=== PATIENT | female | born 1970 ===

== ENCOUNTER 2018-10-21 22:52 | Inpatient (IN) | payer MEDICARE, OTHER ==
[2018-10-21 22:54] VITALS: BMI 32.5
--- NOTE | 2018-10-21 23:15 | ED PDOC ---
Arrival/HPI - Critical Care Critical Care Minutes: 45 minutes - History of Present Illness Narrative History of Present Illness (Text): 10/21/18 23:14 48 year old female with a past medical history of fibromyalgia, epilepsy, and cva (2006) presents to the hospital after having questionable seizure activity while at home. Per daughter she was speaking with mom when she started reporting jaw tightening. Patient brought in by EMS and reports mid-sternal chest pain with no radiation. She rates it a 9/10 in severity. Limited ROS due to patients current condition. PMH: Fibromyalgia, cva, epilepsy Medications: Gabapentin 1200mg PO TID Surgical history: total hysterectomy Allergies: Tramadol, Morphin, Dilantin Symptom Onset: Sudden Symptom Course: Unchanged Quality: Tightness Severity Level: 9 Context: Sitting <Salinas Schmidt - Last Filed: 10/22/18 06:23> Past Medical History - Provider Review Nursing Documentation Reviewed: Yes - Cardiac Hx Cardiac Disorders: No - Pulmonary Hx Respiratory Disorders: No - Neurological Hx Neurological Disorder: Yes HX Cerebrovascular Accident: Yes (2005) Hx Seizures: Yes - Musculoskeletal/Rheumatological Other/Comment: Neuropathy - Gastrointestinal Hx Gastrointestinal Disorders: No - Genitourinary/Gynecological Hx Genitourinary Disorders: No - Psychiatric Hx Psychophysiologic Disorder: No Hx Substance Use: No <Salinas Schmidt - Last Filed: 10/22/18 06:23> Family/Social History - Physician Review Nursing Documentation Reviewed: Yes Family/Social History: No Known Family HX Smoking Status: Never Smoked Hx Alcohol Use: No Hx Substance Use: No <Salinas Schmidt - Last Filed: 10/22/18 06:23> Allergies/Home Meds <Salinas Schmidt - Last Filed: 10/22/18 06:23> <Katty Dugan - Last Filed: 10/23/18 06:52> Allergies/Adverse Reactions: Allergies iodine Allergy (Verified 10/21/18 22:54) ANAPHYLAXIS morphine Allergy (Verified 10/21/18 22:54) NAUSEA tramadol Allergy (Verified 10/21/18 22:54) ITCHING Home Medications: Home Meds Medication Instructions Recorded Confirmed DULoxetine [Cymbalta] 60 mg PO DAILY 10/22/18 10/22/18 Gabapentin [Neurontin] 1,200 mg PO TID 10/22/18 10/22/18 Levalbuterol HCl [Xopenex] 0.63 mg IH Q6H PRN 10/22/18 10/22/18 Montelukast [Singulair] 10 mg PO HS 10/22/18 10/22/18 Omeprazole 20 mg PO DAILY 10/22/18 10/22/18 Topiramate [Topamax] 100 mg PO DAILY 10/22/18 10/22/18 Review of Systems - Review of Systems Systems not reviewed;Unavailable: Acuity of Condition Cardiovascular: Chest Pain. absent: Palpitations, Syncope, Other <Salinas Schmidt - Last Filed: 10/22/18 06:23> Physical Exam Vital Signs Reviewed: Yes Temperature: Afebrile Blood Pressure: Normal Pulse: Regular Respiratory Rate: Normal Appearance: Positive for: Well-Appearing, Non-Toxic Pain Distress: None Mental Status: Positive for: Alert and Oriented X 3 Finger Stick Blood Glucose: 98 - Systems Exam Head: Present: Atraumatic, Normocephalic. No: Abrasion Pupils: Present: PERRL. No: Sluggish Extroacular Muscles: Present: EOMI. No: Gaze Palsy Conjunctiva: Present: Normal. No: Injected Mouth: Present: Moist Mucous Membranes. No: Dry, Normal Teeth Respiratory/Chest: Present: Clear to Auscultation, Good Air Exchange Cardiovascular: Present: Murmurs, Normal S1, S2 Abdomen: Present: Tenderness, Normal Bowel Sounds <Salinas Schmidt - Last Filed: 10/22/18 06:23> Vital Signs Temp Pulse Resp BP Pulse Ox 10/22/18 01:26 81 18 129/63 95 10/21/18 23:15 97.3 F L 84 18 144/85 100 <Katty Dugan - Last Filed: 10/23/18 06:52> Medical Decision Making ED Course and Treatment: 10/21/18 23:22 48 year old female with a past medical history of epilepsy, fibromyalgia, cva presents with chest pain and questionable seizure. -EKG -Troponin -Head ct w/o contrast -Chest xray -CBC/CMP -D-dimer -Magnesium -Xanax 10/22/18 00:27 D-dimer 678 -CTA ordered. 10/22/18 00:[address] Lazo and he accepts the patient to observation. Physician Office Specialist made aware. - RAD Interpretation Radiology Orders: 10/21/18 23:12 HEAD W/O (CODE STROKE) [CT] Stat <RoxanaSalinas - Last Filed: 10/22/18 06:23> - Lab Interpretations Lab Results: D-Dimer, Quantitative 678 ng/mlDDU (0-243) H 10/21/18 23:00 Troponin I < 0.01 ng/mL 10/22/18 12:15 Total Bilirubin 0.3 mg/dL (0.2-1.3) 10/21/18 23:58 AST 60 U/L (14-36) H 10/21/18 23:58 ALT 58 U/L (7-56) H 10/21/18 23:58 Alkaline Phosphatase 105 U/L (38-126) 10/21/18 23:58 Total Protein 7.6 g/dL (5.8-8.3) 10/21/18 23:58 Albumin 4.5 g/dL (3.0-4.8) 10/21/18 23:58 Globulin 3.1 gm/dL 10/21/18 23:58 Albumin/Globulin Ratio 1.4 (1.1-1.8) 10/21/18 23:58 Urine Color Yellow (YELLOW) 10/22/18 14:30 Urine Appearance Clear (CLEAR) 10/22/18 14:30 Urine pH 7.0 (4.7-8.0) 10/22/18 14:30 Ur Specific [place] 1.015 (1.005-1.035) 10/22/18 14:30 Urine Protein Negative mg/dL (<30 mg/dL) 10/22/18 14:30 Urine Glucose (UA) Negative mg/dL (NEGATIVE) 10/22/18 14:30 Urine Ketones Negative mg/dL (NEGATIVE) 10/22/18 14:30 Urine Blood Negative (NEGATIVE) 10/22/18 14:30 Urine Nitrate Negative (NEGATIVE) 10/22/18 14:30 Urine Bilirubin Negative (NEGATIVE) 10/22/18 14:30 Urine Urobilinogen 0.2 E.U./dL (<1 E.U./dL) 10/22/18 14:30 Ur Leukocyte Esterase Small Deepak/uL (NEGATIVE) H 10/22/18 14:30 Urine RBC 0 - 2 /hpf (0-2) 10/22/18 14:30 Urine WBC 5 - 10 /hpf (0-6) H 10/22/18 14:30 Ur Epithelial Cells 3 - 4 /hpf (0-5) 10/22/18 14:30 Urine Bacteria Many /hpf (NONE) 10/22/18 14:30 - RAD Interpretation Radiology Orders: 10/21/18 23:12 HEAD W/O CONTRAST [CT] Stat 10/21/18 23:20 CHEST PORTABLE [RAD] Stat - Medication Orders Current Medication Orders: Aspirin (Ecotrin) 81 mg PO DAILY [facility] Last Admin: 10/22/18 10:00 Dose: 81 mg Duloxetine HCl (Cymbalta) 60 mg PO DAILY [facility] Last Admin: 10/22/18 10:00 Dose: 60 mg Enoxaparin Sodium (Lovenox) 40 mg SC DAILY [facility]; Protocol Last Admin: 10/22/18 12:44 Dose: 40 mg MAR aPTT Document 10/22/18 12:44 ALEXANDREA (Rec: 10/22/18 12:47 ALEXANDREA [id number]) aPTT aPTT (secs) 1 Subcutaneous Administrations Document 10/22/18 12:44 ALEXANDREA (Rec: 10/22/18 12:47 A[facility]REA [facility] [place] [id number]) Injection Site MAR Injection Site Left Arm Charges for Administration # of Subcutaneous Administrations 1 Gabapentin (Neurontin) 1,200 mg PO TID [facility]; Protocol Last Admin: 10/22/18 18:23 Dose: 1,200 mg Behavioural Document 10/22/18 18:23 ALEXANDREA (Rec: 10/22/18 18:23 ALEXANDREA [facility] [id number]) Maintenance Maintenance Dose Yes Nonmedicinal Nonmedicinal Interventions Therapeutic Communication Behavior Behavior for Medication: Anxiety Ibuprofen (Motrin Tab) 600 mg PO Q6H PRN PRN Reason: Pain, moderate (4-7) Last Admin: 10/22/18 14:11 Dose: 600 mg MAR Pain/Vitals Document 10/22/18 14:11 ALEXANDREA (Rec: 10/22/18 14:12 ALEXANDREA [facility] [id number]) Pain Reassessment Is This A Pain ReAssessment? Yes Sleep Is patient sleeping during reassessment? No Presence of Pain Presence of Pain Yes Pain Scale Used Protocol: [facility] Pain Scale Used Numeric Location Left, Right or Bilateral Left Pain Location Body Site Arm Description Constant Intensity 8 Pain Behavior Guarding Alleviating Factors Medication Re-Assess: MAR Pain/Vitals Document 10/22/18 15:11 ALEXANDREA (Rec: 10/22/18 18:24 ALEXANDREA [facility] [id number]) Pain Reassessment Is This A Pain ReAssessment? Yes Sleep Is patient sleeping during reassessment? No Presence of Pain Presence of Pain Yes Pain Scale Used Protocol: [facility] Pain Scale Used Numeric Location Left, Right or Bilateral Left Pain Location Body Site Chest Description Constant Intensity 3 Scale Used Numeric Alleviating Factors Medication Levalbuterol HCl (Xopenex) 0.63 mg IH [id number] PRN PRN Reason: Shortness of Breath Last Admin: 10/22/18 10:12 Dose: 0.63 mg Lorazepam (Ativan) 2 mg IVP Q2H PRN; Protocol PRN Reason: Seizure activity Montelukast Sodium (Singulair) 10 mg PO HS [facility] Last Admin: 10/22/18 21:56 Dose: 10 mg Pantoprazole Sodium (Protonix Ec Tab) 40 mg PO 0600 CE Last Admin: 10/22/18 05:55 Dose: 40 mg Topiramate (Topamax) 150 mg PO DAILY [facility]; Protocol Discontinued Medications Docusate Sodium (Colace) 100 mg PO ONCE ONE Stop: 10/22/18 22:01 Last Admin: 10/22/18 21:56 Dose: 100 mg Last Bowel Movement Document 10/22/18 21:56 CDE (Rec: 10/22/18 21:56 CDE [email or web address]) Last Bowel Movement Last Bowel Movement 10/20/18 Lorazepam (Ativan) 1 mg IVP ONCE ONE; Protocol Stop: 10/21/18 23:47 Last Admin: 10/21/18 23:55 Dose: 1 mg IVP Administration Document 10/21/18 23:55 AD (Rec: 10/22/18 00:24 AD [facility] [id number]) Charges for Administration # of IVP Administrations 1 Re-Assess: Reassess Psych Meds Document 10/22/18 00:25 ALEXANDREA (Rec: 10/22/18 12:49 ALEXANDREA [id number]) Reassess Psych Med Effective Topiramate (Topamax) 100 mg PO DAILY [facility]; Protocol Last Admin: 10/22/18 12:48 Dose: 100 mg Behavioural Document 10/22/18 12:48 ALEXANDREA (Rec: 10/22/18 12:48 [id number]) Maintenance Maintenance Dose Yes Nonmedicinal Nonmedicinal Interventions Redirect Behavior Behavior for Medication: Anxiety Re-Assess: Reassess Psych Meds Document 10/22/18 13:48 ALEXANDREA (Rec: 10/22/18 14:09 ALEXANDREA [facility] [id number]) Reassess Psych Med Effective <Katty Dugan - Last Filed: 10/23/18 06:52> Disposition/Present on Arrival - Present on Arrival Any Indicators Present on Arrival: No History of DVT/PE: No History of Uncontrolled Diabetes: No Urinary Catheter: No History of Decub. Ulcer: No History Surgical Site Infection Following: None - Disposition Have Diagnosis and Disposition been Completed?: Yes Disposition Time: 12:55 Patient Plan: Admission <Salinas Schmidt - Last Filed: 10/22/18 06:23> <Katty Dugan - Last Filed: 10/23/18 06:52> - Disposition Diagnosis: Elevated d-dimer Disposition: HOSPITALIZED Condition: GUARDED
[2018-10-21 23:26] LABS: HEMOGLOBIN 11.5 g/dL (12.0-16.0); MEAN CELL VOLUME 84.4 fl (80.0-105.0); MEAN CORPUSCULAR HEMOGLOBIN 26.4 pg (25.0-35.0); MEAN CORPUSCULAR HGB CONC 31.3 g/dl (31.0-37.0); MEAN PLATELET VOLUME 11.7 fl (7.0-11.0); RBC 4.36 10^6/uL (3.5-6.1); RED CELL DISTRIBUTION WIDTH 23.8 % (11.5-14.5); WHITE BLOOD COUNT 4.9 10^3/uL (4.5-11.0)
[2018-10-22 00:17] LABS: ALB/GLOB RATIO 1.4 (1.1-1.8); ALBUMIN 4.5 g/dL (3.0-4.8); ALT/SGPT 58 U/L (7-56); AST/SGOT 60 U/L (14-36); BLOOD UREA NITROGEN 17 mg/dL (7-21); CALCIUM 9.3 mg/dL (8.4-10.5); GFR NON-AFRICAN AMERICAN > 60
[2018-10-22 00:28] LABS: TROPONIN I < 0.01 ng/mL
--- NOTE | 2018-10-22 01:19 | CP.PCM.HP ---
<Peyman Taylor L - Last Filed: 10/22/18 03:45> History of Present Illness - History of Present Illness History of Present Illness: Resident History & Physical for Hospitalist Service Patient is a 48 year old female with past medical history of CVA with residual left sided weakness, epilepsy, obesity, anemia, fibromyalgia, neuropathy, seasonal disorder presenting s/p seizure episode witnessed by family. History was mostly obtained from prior records and daughter at bedside due to patient's lethargic status. Earlier in the evening patient was noted to have a fifteen minute episode of clonic movements with jaw clenching and drooling. Patient's last seizure was several years ago. Currently patient does follow commands and answers questions appropriately. Admits to constant chest discomfort localized to mid anterior chest wall, not associated with exertion, dyspnea or diaphoresis. Patient is s/p total hysterectomy a month prior and admits to abdominal pain. Denies fevers, chills, shortness of breath, nausea, vomiting, diarrhea, dysuria. PMH: CVA (2005), epilepsy, obesity, anemia, fibromyalgia, neuropathy, fibroids, endometriosis, seasonal disorder PSH: gastric bypass, hernia, cholecystectomy, , total hysterectomy, nerve block for lumbago SHx: denies alcohol, tobacco, illicit drug use FHx: mother (lupus), father (bone cancer) Allergies: iodine, morphine, tramadol, metaclopramide, phenytoin, zolpidem PMD: Dr. Hearn Pharmacy: [facility] Present on Admission - Present on Admission Any Indicators Present on Admission: No Review of Systems - Review of Systems All systems: reviewed and no additional remarkable complaints except (as stated in HPI) Past Patient History - Past Social History Smoking Status: Never Smoked - CARDIAC Hx Cardiac Disorders: No - PULMONARY Hx Respiratory Disorders: No - NEUROLOGICAL Hx Neurological Disorder: Yes HX Cerebrovascular Accident: Yes (2005) Hx Seizures: Yes - MUSCULOSKELETAL/RHEUMATOLOGICAL Other/Comment: Neuropathy - GASTROINTESTINAL Hx Gastrointestinal Disorders: No - GENITOURINARY/GYNECOLOGICAL Hx Genitourinary Disorders: No - PSYCHIATRIC Hx Psychophysiologic Disorder: No Hx Substance Use: No - SURGICAL HISTORY Hx Surgeries: Yes Meds Allergies/Adverse Reactions: Allergies Allergy/AdvReac Type Severity Reaction Status Date / Time iodine Allergy ANAPHYLAXIS Verified 10/21/18 22:54 morphine Allergy NAUSEA Verified 10/21/18 22:54 tramadol Allergy ITCHING Verified 10/21/18 22:54 Physical Exam - Constitutional Appears: Non-toxic, No Acute Distress - Head Exam Head Exam: ATRAUMATIC, NORMOCEPHALIC - Eye Exam Eye Exam: EOMI, Normal appearance, PERRL - ENT Exam ENT Exam: Mucous Membranes Moist, Normal Exam - Neck Exam Neck exam: Negative for: Lymphadenopathy - Respiratory Exam Respiratory Exam: Chest Wall Tenderness, Clear to Auscultation Bilateral, NORMAL BREATHING PATTERN. absent: Accessory Muscle Use, Rales, Rhonchi, Wheezes, Respiratory Distress - Cardiovascular Exam Cardiovascular Exam: REGULAR RHYTHM, +S1, +S2. absent: Tachycardia, Systolic Murmur - GI/Abdominal Exam GI & Abdominal Exam: Normal Bowel Sounds, Soft, Tenderness (diffuse). absent: Distended, Firm, Guarding Additional comments: midline postsurgical scar - Extremities Exam Extremities exam: Positive for: normal capillary refill, pedal pulses present. Negative for: pedal edema - Neurological Exam Neurological exam: CN II-XII Intact, Oriented x3 Additional comments: lethargic LUE and LLE weakness - Skin Skin Exam: Dry, Intact, Normal Color, Warm Results - Vital Signs Recent Vital Signs: Last Vital Signs Temp 97.3 F L 10/21/18 23:15 Pulse 84 10/21/18 23:15 Resp 18 10/21/18 23:15 BP 144/85 10/21/18 23:15 Pulse Ox 100 10/21/18 23:15 - Labs Result Diagrams: 10/21/18 23:00 10/21/18 23:58 Labs: Laboratory Results - last 24 hr 10/21/18 10/21/18 10/21/18 23:00 23:00 23:58 WBC 4.9 RBC 4.36 Hgb 11.5 L Hct 36.8 MCV 84.4 MCH 26.4 MCHC 31.3 RDW 23.8 H Plt Count 289 MPV 11.7 H D-Dimer, Quantitative 678 H Sodium 141 Potassium 3.6 Chloride 102 Carbon Dioxide 27 Anion Gap 16 BUN 17 Creatinine 0.7 Est GFR ( Amer) > 60 Est GFR (Non-Af Amer) > 60 Random Glucose 86 Calcium 9.3 Magnesium 2.2 Total Bilirubin 0.3 AST 60 H ALT 58 H Alkaline Phosphatase 105 Troponin I < 0.01 Total Protein 7.6 Albumin 4.5 Globulin 3.1 Albumin/Globulin Ratio 1.4 Assessment & Plan - Assessment and Plan (Free Text) Assessment: Patient is a 48 year old female with past medical history of CVA with residual left sided weakness, epilepsy, fibromyalgia presenting s/p seizure episode, also complaining of chest pain. Plan: Seizure - CT head prelim read shows possible tiny petechial hemorrhage in left basal ganglia vs. artifact - Ativan PRN - EEG - Seizure/aspiration precautions - home Topamax 100 mg PO daily, Gabapentin 1200 mg PO TID - Neurology consulted Atypical chest pain - Troponin negx1 - CHIP score 0 - ECHO from 09/2018 shows EF 60-65% - Stress test from 09/2018 was normal - Troponins Q6H - EKG in AM - Hgba1c, TSH, lipid panel - ASA 81 mg PO daily - Oxygen NC - Cardiology consulted Elevated d-dimer - V/Q scan as patient is allergic to iodine PPX - Pepcid, Lovenox SC Case reviewed with Dr. Clifton Taylor PGY-1 <Suri Lazo - Last Filed: 10/22/18 05:13> Results - Vital Signs Recent Vital Signs: Last Vital Signs Temp 97.3 F L 10/21/18 23:15 Pulse 75 10/22/18 02:52 Resp 18 10/22/18 02:52 BP 119/74 10/22/18 02:05 Pulse Ox 100 10/22/18 02:05 - Labs Result Diagrams: 10/21/18 23:00 10/21/18 23:58 Labs: Laboratory Results - last 24 hr 10/21/18 10/21/18 10/21/18 23:00 23:00 23:58 WBC 4.9 RBC 4.36 Hgb 11.5 L Hct 36.8 MCV 84.4 MCH 26.4 MCHC 31.3 RDW 23.8 H Plt Count 289 MPV 11.7 H D-Dimer, Quantitative 678 H Sodium 141 Potassium 3.6 Chloride 102 Carbon Dioxide 27 Anion Gap 16 BUN 17 Creatinine 0.7 Est GFR ( Amer) > 60 Est GFR (Non-Af Amer) > 60 Random Glucose 86 Calcium 9.3 Magnesium 2.2 Total Bilirubin 0.3 AST 60 H ALT 58 H Alkaline Phosphatase 105 Troponin I < 0.01 Total Protein 7.6 Albumin 4.5 Globulin 3.1 Albumin/Globulin Ratio 1.4 Attending/Attestation - Attestation I have personally seen and examined this patient.: Yes I have fully participated in the care of the patient.: Yes I have reviewed all pertinent clinical information: Yes Notes (Text): 10/22/18 05:12 Patient was seen when she was in the ER. Medical record was reviewed. Agree with history , physical examination, assessment and plan.
[2018-10-22] MEDS ORDERED: Levalbuterol 0.63 MG/3 ML Inhal Soln UD IH PRN (03:42)
[2018-10-22] MEDS: Pantoprazole 40 mg EC Tab PO SCH (05:55)
[2018-10-22 06:59] LABS: HDL CHOLESTEROL 50 mg/dL (29-60)
[2018-10-22 07:10] LABS: LDL CHOLESTEROL 71 mg/dL (0-129); TROPONIN I < 0.01 ng/mL
--- NOTE | 2018-10-22 07:46 | CT ---
Date of service: 10/21/2018 PROCEDURE: CT HEAD WITHOUT CONTRAST. HISTORY: ? seizure COMPARISON: None available. TECHNIQUE: Axial computed tomography images were obtained through the head/brain without intravenous contrast. Radiation dose: Total exam DLP = 837.25 mGy-cm. This CT exam was performed using one or more of the following dose reduction techniques: Automated exposure control, adjustment of the mA and/or kV according to patient size, and/or use of iterative reconstruction technique. FINDINGS: HEMORRHAGE: There is 2 adjacent punctate foci of high attenuation at the left basal ganglia seen at image 12 and 13 likely represent dystrophic calcification. The possibility of punctate hemorrhage is less likely but not totally excluded. BRAIN: No mass effect or edema. No atrophy or chronic microvascular ischemic changes. VENTRICLES: Unremarkable. No hydrocephalus. CALVARIUM: Unremarkable. PARANASAL SINUSES: Unremarkable as visualized. No significant inflammatory changes. MASTOID AIR CELLS: Unremarkable as visualized. No inflammatory changes. OTHER FINDINGS: There is enlargement of the sella turcica noted with possible partial empty sella. IMPRESSION: Two adjacent punctate foci of high attenuation at the left basal ganglia likely represent dystrophic calcification. The possibility of punctate hemorrhage is less likely. Follow-up reassessment is suggested to document stability. Mild diffuse enlargement of the sella turcica with findings suggestive of possible partial empty sella. Preliminary report contains concordant findings was submitted by [facility] Radiology.
--- NOTE | 2018-10-22 08:58 | RAD ---
Date of service: 10/21/2018 HISTORY: chest tightness COMPARISON: None available. TECHNIQUE: Chest one view . FINDINGS: LUNGS: No focal consolidation is seen. PLEURA: No pleural effusion is identified. CARDIOVASCULAR: Heart size is within normal limits. Atherosclerotic calcifications noted of the aorta. OSSEOUS STRUCTURES: Degenerative changes noted of the spine. VISUALIZED UPPER ABDOMEN: Unremarkable. OTHER FINDINGS: None. IMPRESSION: No acute cardiopulmonary process seen.
--- NOTE | 2018-10-22 11:49 | CP.PCM.CON ---
<Karan Mnacia - Last Filed: 10/22/18 18:28> History of Present Illness - History of Present Illness History of Present Illness: Karan Mancia PGY2 Neurology Consult Note for Dr. Ferris 48 year old female with past medical history of CVA with residual left sided weakness, seizures, epilepsy, obesity, anemia, fibromyalgia, neuropathy, seasonal disorder presenting s/p seizure like episode witnessed brother on the phone. Neurology is consulted by Medicine for possible seizures. Patient states she recalled what happened and did not have any LOC, urinary or bladder incontinence. She said she felt as if she froze and her head and face were twitching and jaw was clenched. She states her last seizure was in 2013 and she has been taking gabapentin 1200 TID for seizure control and has not seen a neuro logist for a long time. Currently patient does follow commands and answers questions appropriately. Denies fevers, chills, shortness of breath, nausea, vomiting, diarrhea, dysuria, headaches, numbness or tingling. PMH: CVA (2005), epilepsy, obesity, anemia, fibromyalgia, neuropathy, fibroids, endometriosis, seasonal disorder PSH: gastric bypass, hernia, cholecystectomy, , total hysterectomy, nerve block for lumbago SHx: denies alcohol, tobacco, illicit drug use FHx: mother (lupus), father (bone cancer) Allergies: iodine, morphine, tramadol, metaclopramide, phenytoin, zolpidem PMD: Dr. Hearn Review of Systems - Respiratory Respiratory: Dyspnea - Musculoskeletal Musculoskeletal: absent: Numbness, Radiating Pain into Limb, Stiffness, Tingling - Neurological Neurological: Numbness, Paresthesias. absent: Abnormal Gait, Abnormal Hearing, Abnormal Movements, Burning Sensations, Confusion, Disequilibrium, Dizziness, Focal Weakness, Headaches, Lack of Coordination, Syncope, Tingling Past Patient History - Past Social History Smoking Status: Never Smoked - CARDIAC Hx Cardiac Disorders: No - PULMONARY Hx Respiratory Disorders: No - NEUROLOGICAL Hx Neurological Disorder: Yes HX Cerebrovascular Accident: Yes (2005) Hx Seizures: Yes - HEMATOLOGICAL/ONCOLOGICAL Hx Anemia: Yes - MUSCULOSKELETAL/RHEUMATOLOGICAL Other/Comment: Neuropathy - GASTROINTESTINAL Hx Gastrointestinal Disorders: No - GENITOURINARY/GYNECOLOGICAL Hx Genitourinary Disorders: No - PSYCHIATRIC Hx Psychophysiologic Disorder: No Hx Substance Use: No - SURGICAL HISTORY Hx Surgeries: Yes Meds Allergies/Adverse Reactions: Allergies Allergy/AdvReac Type Severity Reaction Status Date / Time iodine Allergy ANAPHYLAXIS Verified 10/21/18 22:54 morphine Allergy NAUSEA Verified 10/21/18 22:54 tramadol Allergy ITCHING Verified 10/21/18 22:54 - Medications Medications: Current Medications Aspirin (Ecotrin) 81 mg PO DAILY [facility] Duloxetine HCl (Cymbalta) 60 mg PO DAILY [facility] Enoxaparin Sodium (Lovenox) 40 mg SC DAILY [facility]; Protocol Gabapentin (Neurontin) 1,200 mg PO TID [facility]; Protocol Ibuprofen (Motrin Tab) 600 mg PO Q6H PRN PRN Reason: Pain, moderate (4-7) Levalbuterol HCl (Xopenex) 0.63 mg IH [id number] PRN PRN Reason: Shortness of Breath Last Admin: 10/22/18 10:12 Dose: 0.63 mg Lorazepam (Ativan) 2 mg IVP Q2H PRN; Protocol PRN Reason: Seizure activity Montelukast Sodium (Singulair) 10 mg PO HS [facility] Pantoprazole Sodium (Protonix Ec Tab) 40 mg PO 0600 [facility] Last Admin: 10/22/18 05:55 Dose: 40 mg Topiramate (Topamax) 100 mg PO DAILY [facility]; Protocol Physical Exam - Constitutional Appears: Non-toxic, No Acute Distress - Head Exam Head Exam: ATRAUMATIC, NORMAL INSPECTION, NORMOCEPHALIC - Eye Exam Eye Exam: EOMI, Normal appearance, PERRL Pupil Exam: NORMAL ACCOMODATION - ENT Exam ENT Exam: Mucous Membranes Moist - Respiratory Exam Respiratory Exam: Clear to Auscultation Bilateral, NORMAL BREATHING PATTERN - Cardiovascular Exam Cardiovascular Exam: REGULAR RHYTHM, +S1, +S2 - Extremities Exam Extremities exam: Positive for: pedal pulses present - Neurological Exam Neurological exam: Alert, Oriented x3, Reflexes Normal Additional comments: left sided residual weakness from prior stroke Results - Vital Signs Recent Vital Signs: Last Vital Signs Temp 97 F L 10/22/18 06:00 Pulse 82 10/22/18 10:13 Resp 18 10/22/18 06:00 BP 99/63 L 10/22/18 06:00 Pulse Ox 97 10/22/18 06:00 - Labs Result Diagrams: 10/21/18 23:00 10/21/18 23:58 Labs: Laboratory Results - last 24 hr 10/21/18 10/21/18 10/21/18 23:00 23:00 23:58 WBC 4.9 RBC 4.36 Hgb 11.5 L Hct 36.8 MCV 84.4 MCH 26.4 MCHC 31.3 RDW 23.8 H Plt Count 289 MPV 11.7 H D-Dimer, Quantitative 678 H Sodium 141 Potassium 3.6 Chloride 102 Carbon Dioxide 27 Anion Gap 16 BUN 17 Creatinine 0.7 Est GFR ( Amer) > 60 Est GFR (Non-Af Amer) > 60 Random Glucose 86 Calcium 9.3 Magnesium 2.2 Total Bilirubin 0.3 AST 60 H ALT 58 H Alkaline Phosphatase 105 Lactate Dehydrogenase Total Creatine Kinase Troponin I < 0.01 Total Protein 7.6 Albumin 4.5 Globulin 3.1 Albumin/Globulin Ratio 1.4 Triglycerides Cholesterol LDL Cholesterol Direct HDL Cholesterol TSH 3rd Generation 10/22/18 10/22/18 10/22/18 06:00 06:00 06:30 WBC RBC Hgb Hct MCV MCH MCHC RDW Plt Count MPV D-Dimer, Quantitative Sodium Potassium Chloride Carbon Dioxide Anion Gap BUN Creatinine Est GFR ( Amer) Est GFR (Non-Af Amer) Random Glucose Calcium Magnesium Total Bilirubin AST ALT Alkaline Phosphatase Lactate Dehydrogenase 503 Total Creatine Kinase 94 Troponin I < 0.01 Total Protein Albumin Globulin Albumin/Globulin Ratio Triglycerides 61 Cholesterol 142 LDL Cholesterol Direct 71 HDL Cholesterol 50 TSH 3rd Generation 3.09 Assessment & Plan - Assessment and Plan (Free Text) Assessment: Patient is a 48 year old female with past medical history of CVA with residual left sided weakness, epilepsy, fibromyalgia presenting s/p seizure episode. Plan: Seizure - CT head shows possible 2.0mm petechial hemorrhage in left basal ganglia vs. artifact - Ativan PRN - EEG - Seizure/aspiration precautions - Topamax 150mg - continue neurontin 1200 TID - Neurology consulted - possible MRI <Diego Ferris - Last Filed: 10/29/18 12:13> Meds - Medications Medications: Current Medications Aspirin (Ecotrin) 81 mg PO DAILY [facility] Last Admin: 10/28/18 09:41 Dose: 81 mg Duloxetine HCl (Cymbalta) 60 mg PO DAILY [facility] Last Admin: 10/28/18 09:37 Dose: 60 mg Enoxaparin Sodium (Lovenox) 40 mg SC DAILY [facility]; Protocol Last Admin: 10/28/18 09:36 Dose: 40 mg Famotidine (Pepcid) 20 mg PO DAILY [facility] Gabapentin (Neurontin) 1,200 mg PO TID [facility]; Protocol Last Admin: 10/28/18 17:27 Dose: 1,200 mg Sodium Chloride (Sodium Chloride 0.9%) 1,000 mls @ 100 mls/hr IV .Q10H [facility] Last Admin: 10/29/18 09:37 Dose: 100 mls/hr Ibuprofen (Motrin Tab) 600 mg PO Q6H PRN PRN Reason: Pain, moderate (4-7) Last Admin: 10/28/18 17:29 Dose: 600 mg Levalbuterol HCl (Xopenex) 0.63 mg IH [id number] PRN PRN Reason: Shortness of Breath Last Admin: 10/22/18 10:12 Dose: 0.63 mg Lidocaine (Lidoderm) 1 ea TD DAILY [facility] Last Admin: 10/28/18 15:15 Dose: 1 ea Lorazepam (Ativan) 2 mg IVP Q4H PRN; Protocol PRN Reason: Anxiety Last Admin: 10/26/18 15:20 Dose: 2 mg Montelukast Sodium (Singulair) 10 mg PO HS [facility] Last Admin: 10/27/18 21:16 Dose: 10 mg Ondansetron HCl (Zofran Inj) 4 mg IVP Q6H PRN PRN Reason: Nausea/Vomiting Last Admin: 10/27/18 15:28 Dose: 4 mg Pantoprazole Sodium (Protonix Ec Tab) 40 mg PO 0600 [facility] Last Admin: 10/28/18 05:16 Dose: 40 mg Polyethylene Glycol (Miralax) 17 gm PO BID [facility] Last Admin: 10/28/18 17:28 Dose: 17 gm Sennosides (Senokot Tab) 8.6 mg PO DAILY [facility] Last Admin: 10/28/18 09:37 Dose: 8.6 mg Topiramate (Topamax) 150 mg PO DAILY [facility]; Protocol Last Admin: 10/26/18 10:17 Dose: 150 mg Results - Vital Signs Recent Vital Signs: Last Vital Signs Temp 98 F 10/29/18 06:00 Pulse 81 10/29/18 06:00 Resp 18 10/29/18 06:00 BP 91/62 L 10/29/18 06:00 Pulse Ox 97 10/29/18 06:00 - Labs Result Diagrams: 10/29/18 07:00 10/29/18 07:00 Labs: Laboratory Results - last 24 hr 10/28/18 10/28/18 10/29/18 07:00 07:00 07:00 WBC 3.6 L D RBC 4.23 Hgb 11.2 L Hct 35.8 L MCV 84.6 MCH 26.5 MCHC 31.3 RDW 23.0 H Plt Count 235 MPV 11.8 H Neut % (Auto) 51.8 Lymph % (Auto) 33.9 [place] % (Auto) 7.4 H Eos % (Auto) 6.6 H Baso % (Auto) 0.3 Lymph # (Auto) 1.2 [place] # (Auto) 0.3 Eos # (Auto) 0.2 Baso # (Auto) 0.01 Absolute Neuts (auto) 1.88 PT INR APTT Sodium Potassium Chloride Carbon Dioxide Anion Gap BUN Creatinine Est GFR ( Amer) Est GFR (Non-Af Amer) Random Glucose Calcium Total Bilirubin AST ALT Alkaline Phosphatase Total Protein Albumin Globulin Albumin/Globulin Ratio [id number] 181 RPR Nonreactive 10/29/18 10/29/18 07:00 10:35 WBC RBC Hgb Hct MCV MCH MCHC RDW Plt Count MPV Neut % (Auto) Lymph % (Auto) [place] % (Auto) Eos % (Auto) Baso % (Auto) Lymph # (Auto) [place] # (Auto) Eos # (Auto) Baso # (Auto) Absolute Neuts (auto) PT 12.5 INR 1.11 APTT 36.9 Sodium 141 Potassium 4.3 Chloride 105 Carbon Dioxide 27 Anion Gap 13 BUN 21 Creatinine 0.7 Est GFR ( Amer) > 60 Est GFR (Non-Af Amer) > 60 Random Glucose 86 Calcium 9.3 Total Bilirubin 0.3 AST 614 H ALT 680 H Alkaline Phosphatase 133 H Total Protein 7.3 Albumin 4.0 Globulin 3.3 Albumin/Globulin Ratio 1.2 [id number] RPR Attending/Attestation - Attestation I have personally seen and examined this patient.: Yes I have fully participated in the care of the patient.: Yes I have reviewed all pertinent clinical information: Yes Notes (Text): I agree with the assessment and plan: - Ativan PRN - EEG - Seizure/aspiration precautions - Topamax 150mg - continue neurontin 1200 TID
--- NOTE | 2018-10-22 12:17 | NM ---
Date of service: 10/22/2018 COMPARISON: 10/21/2018. Single-view chest TECHNIQUE: 38.6 mCi technetium 99-m DTPA aerosol. 5.4 mCI technetium 99-m MAA administered intravenously. FINDINGS: VENTILATION COMPONENT: Normal.Retention of radionuclide in the tracheobronchial tree and ingestion of radionuclide in the stomach, incidental findings PERFUSION COMPONENT: Normal. IMPRESSION: Normal ventilation perfusion scan. Negative for pulmonary embolism.
[2018-10-22 12:44] LABS: TROPONIN I < 0.01 ng/mL
[2018-10-22] MEDS: Enoxaparin 40 mg Syringe SC SCH (12:44)
--- NOTE | 2018-10-22 13:00 | CP.PCM.PCO ---
Physician Communication Note - Physician Communication Note Physician Communication Note: venous duplex, UA, EEG, PT eval pending
--- NOTE | 2018-10-22 14:35 | CARD ---
APPROVED REPORT Date of service: 10/22/2018 EKG Measurement Heart [id number] ID [id number] <Conclusion> Normal sinus rhythm Normal ECG
[2018-10-22 14:50] LABS: URINE BILIRUBIN NEGATIVE (NEGATIVE); URINE BLOOD NEGATIVE (NEGATIVE); URINE GLUCOSE (UA) NEGATIVE (NEGATIVE); URINE LEUKOCYTE ESTERASE SMALL Leu/uL (NEGATIVE); URINE PROTEIN NEGATIVE mg/dL (<30 mg/dL); URINE UROBILINOGEN 0.2 E.U./dL (<1 E.U./dL)
[2018-10-22 14:54] LABS: URINE APPEARANCE CLEAR (CLEAR); URINE COLOR YELLOW (YELLOW)
[2018-10-22 15:00] LABS: URINE BACTERIA MANY /hpf; URINE RBC 0 - 2 /hpf (0-2)
--- NOTE | 2018-10-22 15:16 | CARD ---
APPROVED REPORT Date of service: 10/21/2018 EKG Measurement Heart [id number] <Conclusion> Normal sinus rhythm Prolonged QT Abnormal ECG
--- NOTE | 2018-10-22 19:34 | US ---
HISTORY: Leg pain and swelling. Evaluate for DVT PHYSICIAN(S): Mina David MD. TECHNIQUE: Duplex sonography and color-flow Doppler with graded compression were used to evaluate the deep venous systems of both lower extremities. FINDINGS: The visualized deep venous systems of both lower extremities are sonographically normal and compressible. Normal wave forms and augmentation are seen. There is no sonographic evidence for deep venous thrombosis in the visualized segments of both lower extremities. IMPRESSION: No sonographic evidence for deep venous thrombosis in the visualized segments of both lower extremities.
[2018-10-23] MEDS: Pantoprazole 40 mg EC Tab PO SCH (07:02)
[2018-10-23 07:24] LABS: BASO # 0.01 K/mm3 (0.0-2.0); BASO % 0.3 % (0.0-3.0); EOS # 0.1 (0.0-0.7); EOS % 2.9 % (1.5-5.0); LYMPH # 1.6 (1.2-3.4); LYMPH % 47.1 % (22.0-35.0); MEAN CELL VOLUME 85.3 fl (80.0-105.0); MEAN CORPUSCULAR HEMOGLOBIN 26.5 pg (25.0-35.0); MEAN CORPUSCULAR HGB CONC 31.1 g/dl (31.0-37.0); MEAN PLATELET VOLUME 11.7 fl (7.0-11.0); MONO # 0.3 (0.1-0.6); MONO % 7.6 % (1.0-6.0); RBC 4.15 10^6/uL (3.5-6.1); RED CELL DISTRIBUTION WIDTH 23.4 % (11.5-14.5); WHITE BLOOD COUNT 3.4 10^3/uL (4.5-11.0)
[2018-10-23 07:43] LABS: ALB/GLOB RATIO 1.3 (1.1-1.8); ALBUMIN 3.9 g/dL (3.0-4.8); ALT/SGPT 71 U/L (7-56); AST/SGOT 83 U/L (14-36); BLOOD UREA NITROGEN 14 mg/dL (7-21); GFR NON-AFRICAN AMERICAN > 60
[2018-10-23] MEDS: Enoxaparin 40 mg Syringe SC SCH (09:12)
[2018-10-23] MEDS: POLYETHYLENE GLYCOL 3350 17 GM/Dose PACKET PO SCH ×2 (09:15→17:52)
--- NOTE | 2018-10-23 12:54 | CON ---
DATE: 10/23/2018 REQUESTING PHYSICIAN: Dr. Chanel REASON FOR CONSULTATION: Chest pain. HISTORY: This is a 48-year-old woman who has been followed by Dr. Jean Carlos Smyth from Cardiology, who presented to the emergency room after having a possible seizure at home. She describes pain in her chest radiating to her shoulder which she has described as a shock-like sensation. She also had left inframammary pressure-like pain as well as jaw tightness which lasted on and off for several hours. She was brought to the emergency room for evaluation. She does have a history of prior cerebrovascular accident in 2006 as well as a seizure disorder. She has not had any recent seizures to the best of her knowledge. She apparently underwent a stress test sometime last year and was told that this was mildly abnormal, but no further workup was advised at that time. Her cerebrovascular accident was reportedly on the basis of hypertensive disease. She has had a prior hysterectomy, and she also reportedly has a history of fibromyalgia. MEDICATIONS AT HOME: Included Cymbalta, Neurontin, Xopenex, Singulair, omeprazole, and Topamax. ALLERGIES: SHE HAS HAD A REACTION TO CONTRAST DYE IN THE PAST WHICH APPEARED CONSISTENT WITH ANAPHYLAXIS. SHE APPARENTLY UNDERWENT A CONTRAST STUDY AT AGE 16 FOR POSSIBLE THROMBOTIC EVENT INVOLVING HER LEFT ARM. THE DETAILS WERE UNCLEAR. SHE HAS ALSO HAD NAUSEA WITH MORPHINE USE IN THE PAST. SOCIAL HISTORY: She does not smoke or drink. She is , lives with family. FAMILY HISTORY: Father of myocardial fraction is his early 40s. Several other family members have premature heart disease. REVIEW OF SYSTEMS: Ten-point review of systems is notable mainly for the problems mentioned above. PHYSICAL EXAMINATION: GENERAL: She is an anxious-appearing middle-aged woman. VITAL SIGNS: Her blood pressure is 96/60 with a pulse of 60 and sinus, respirations are 16. She is afebrile. HEENT: Normocephalic, atraumatic. NECK: Supple. No JVD noted. CHEST: Few scattered rhonchi heard. HEART: PMI in normal position with a soft systolic murmur at the left sternal border. ABDOMEN: Soft, nontender, normoactive bowel sounds. EXTREMITIES: No clubbing, cyanosis, or edema. SKIN: Warm and dry. PSYCHIATRIC: Normal mood and affect. NEUROLOGIC: Alert and oriented x3. No gross motor or sensory deficits notable. DIAGNOSTIC DATA: Potassium 4.4, BUN and creatinine of 14 and 0.7. White count 3.4, hemoglobin and hematocrit of 11 and 35.4 with a platelet count of 272,000. AST and ALT of 83 and 71. Chest x-ray revealed normal cardiac silhouette with clear lung [place]. The electrocardiogram reveals sinus rhythm with nonspecific ST-T abnormalities. CT of the head showed focal basal ganglia lesions consistent with dystrophic calcification. The sella turcica is enlarged suggestive of possible partial empty sella. A V/Q scan was normal, showing low probability for pulmonary embolism. IMPRESSION: Chest and jaw discomfort, somewhat suspicious for angina. Cardiac enzymes have been negative and she has had no recurrent symptoms. As she has a local waiver analyst, I would advise discharge home with followup with Dr. Smyth next week. It may be advisable for her to consider cardiac catheterization with appropriate allergy prophylaxis for contrast media given her risk factors, family history, and current symptomatology. This was discussed at length with the patient. Thank you for this consultation. We will be happy to see in the future if needed. Lee Cuellar MD
--- NOTE | 2018-10-23 14:15 | CARD ---
APPROVED REPORT Date of service: 10/23/2018 EKG Measurement Heart [id number] <Conclusion> Normal sinus rhythm Minimal voltage criteria for LVH, may be normal variant Mild anterior T wave inversions Borderline ECG
--- NOTE | 2018-10-23 14:58 | CP.PCM.PN ---
<Ruben Cedeno - Last Filed: 10/23/18 16:03> Subjective - Date & Time of Evaluation Date of Evaluation: 10/23/18 Time of Evaluation: 15:47 - Subjective Subjective: Ruben Cedeno, PGY1 Medicine Progress Note: Pt was seen and examined at bedside in the AM. Pt states that she is feeling "weird" and she is having head pressure and feels as if her head is in the clouds. She also sees a straight line going across her eyes. She also states that she has L sided weakness, but is noted to be on her phone and is able to use both hands. Pt also noted chest pain after working with Physical therapy. Objective - Vital Signs/Intake and Output Vital Signs (last 24 hours): Temp Pulse Resp BP Pulse Ox 98.2 F 84 18 102/64 100 10/23/18 12:00 10/23/18 14:00 10/23/18 12:00 10/23/18 12:00 10/23/18 06:00 Intake and Output: 10/23/18 10/23/18 06:59 18:59 Intake Total 1736 240 Output Total 0 Balance 1736 240 - Medications Medications: Current Medications Aspirin (Ecotrin) 81 mg PO DAILY [facility] Last Admin: 10/23/18 09:10 Dose: 81 mg Duloxetine HCl (Cymbalta) 60 mg PO DAILY [facility] Last Admin: 10/23/18 09:10 Dose: 60 mg Enoxaparin Sodium (Lovenox) 40 mg SC DAILY [facility]; Protocol Last Admin: 10/23/18 09:12 Dose: 40 mg Gabapentin (Neurontin) 800 mg PO TID [facility]; Protocol Ibuprofen (Motrin Tab) 600 mg PO Q6H PRN PRN Reason: Pain, moderate (4-7) Last Admin: 10/22/18 14:11 Dose: 600 mg Levalbuterol HCl (Xopenex) 0.63 mg IH [id number] PRN PRN Reason: Shortness of Breath Last Admin: 10/22/18 10:12 Dose: 0.63 mg Lorazepam (Ativan) 2 mg IVP Q2H PRN; Protocol PRN Reason: Seizure activity Montelukast Sodium (Singulair) 10 mg PO HS [facility] Last Admin: 10/22/18 21:56 Dose: 10 mg Pantoprazole Sodium (Protonix Ec Tab) 40 mg PO 0600 [facility] Last Admin: 10/23/18 07:02 Dose: 40 mg Polyethylene Glycol (Miralax) 17 gm PO BID [facility] Last Admin: 10/23/18 09:15 Dose: 17 gm Topiramate (Topamax) 150 mg PO DAILY [facility]; Protocol Last Admin: 10/23/18 09:10 Dose: 150 mg - Labs Labs: 10/23/18 06:45 10/23/18 06:45 - Constitutional Appears: Non-toxic, No Acute Distress - Head Exam Head Exam: ATRAUMATIC, NORMOCEPHALIC - Eye Exam Eye Exam: EOMI, Normal appearance, PERRL - ENT Exam ENT Exam: Mucous Membranes Moist, Normal Exam - Neck Exam Neck exam: Negative for: Lymphadenopathy - Respiratory Exam Respiratory Exam: Chest Wall Tenderness, Clear to Auscultation Bilateral, NORMAL BREATHING PATTERN. absent: Accessory Muscle Use, Rales, Rhonchi, Wheezes, Respiratory Distress - Cardiovascular Exam Cardiovascular Exam: REGULAR RHYTHM, +S1, +S2. absent: Tachycardia, Systolic Murmur - GI/Abdominal Exam GI & Abdominal Exam: Normal Bowel Sounds, Soft, Tenderness (diffuse). absent: Distended, Firm, Guarding Additional comments: midline postsurgical scar - Extremities Exam Extremities exam: Positive for: normal capillary refill, pedal pulses present. Negative for: pedal edema - Neurological Exam Neurological exam: CN II-XII Intact, Oriented x3 Additional comments: lethargic LUE and LLE weakness - Skin Skin Exam: Dry, Intact, Normal Color, Warm - Constitutional Appears: Non-toxic, No Acute Distress - Head Exam Head Exam: ATRAUMATIC, NORMAL INSPECTION, NORMOCEPHALIC - Eye Exam Eye Exam: EOMI, Normal appearance, PERRL - Respiratory Exam Respiratory Exam: Clear to Ausculation Bilateral, NORMAL BREATHING PATTERN. a bsent: Accessory Muscle Use, Rales, Rhonchi, Wheezes, Respiratory Distress, Stridor - Cardiovascular Exam Cardiovascular Exam: RRR, +S1, +S2. absent: Gallop, Rubs - GI/Abdominal Exam GI & Abdominal Exam: Soft, Normal Bowel Sounds. absent: Firm, Guarding, Tenderness - Extremities Exam Extremities Exam: Full ROM, Normal Capillary Refill, Normal Inspection - Back Exam Back Exam: NORMAL INSPECTION. absent: CVA tenderness (L), CVA tenderness (R) - Neurological Exam Neurological Exam: Alert, Awake Additional comments: Pt able to maintain shoulder flexion against gravity. - Psychiatric Exam Psychiatric exam: Flat Affect - Skin Skin Exam: Dry, Normal Color, Warm Assessment and Plan - Assessment and Plan (Free Text) Assessment: Patient is a 48 year old female with past medical history of CVA with residual left sided weakness, epilepsy, fibromyalgia presenting s/p seizure episode, also complaining of chest pain. Plan: Seizure - CT head prelim read shows possible tiny petechial hemorrhage in left basal ganglia vs. artifact - Ativan PRN - EEG - awaiting report - Seizure/aspiration precautions - Neurology consulted, rec appreciated - home Topamax 150 mg PO daily, Gabapentin 800 mg PO TID - Pt displaying signs of catatonia after PT work - Repeat CT head to r/o organic neurological etiology vs psych - PT - recommend TCU Atypical chest pain - Troponin negx3 - Troponins Q6H - CHIP score 0 - ECHO from 09/2018 shows EF 60-65% - Stress test from 09/2018 was normal - EKG - NSR HR @ 67 - TSH: 3.09 - ASA 81 mg PO daily - Oxygen NC - Cardiology consulted Constipation: - Pt started on miralax - Will continue to monitor Elevated d-dimer - V/Q scan (-) for PE PPX - Pepcid, Lovenox PA Case reviewed with Dr. Yanique Cedeno PGY-1 <Tia Chanel - Last Filed: 10/23/18 16:16> Objective - Vital Signs/Intake and Output Vital Signs (last 24 hours): Temp Pulse Resp BP Pulse Ox 98.2 F 84 18 102/64 100 10/23/18 12:00 10/23/18 14:00 10/23/18 12:00 10/23/18 12:00 10/23/18 06:00 Intake and Output: 10/23/18 10/23/18 06:59 18:59 Intake Total 1736 240 Output Total 0 Balance 1736 240 - Medications Medications: Current Medications Aspirin (Ecotrin) 81 mg PO DAILY [facility] Last Admin: 10/23/18 09:10 Dose: 81 mg Duloxetine HCl (Cymbalta) 60 mg PO DAILY [facility] Last Admin: 10/23/18 09:10 Dose: 60 mg Enoxaparin Sodium (Lovenox) 40 mg SC DAILY [facility]; Protocol Last Admin: 10/23/18 09:12 Dose: 40 mg Gabapentin (Neurontin) 800 mg PO TID [facility]; Protocol Ibuprofen (Motrin Tab) 600 mg PO Q6H PRN PRN Reason: Pain, moderate (4-7) Last Admin: 10/22/18 14:11 Dose: 600 mg Levalbuterol HCl (Xopenex) 0.63 mg IH [id number] PRN PRN Reason: Shortness of Breath Last Admin: 10/22/18 10:12 Dose: 0.63 mg Lorazepam (Ativan) 2 mg IVP Q2H PRN; Protocol PRN Reason: Seizure activity Montelukast Sodium (Singulair) 10 mg PO HS [facility] Last Admin: 10/22/18 21:56 Dose: 10 mg Pantoprazole Sodium (Protonix Ec Tab) 40 mg PO 0600 [facility] Last Admin: 10/23/18 07:02 Dose: 40 mg Polyethylene Glycol (Miralax) 17 gm PO BID [facility] Last Admin: 10/23/18 09:15 Dose: 17 gm Topiramate (Topamax) 150 mg PO DAILY [facility]; Protocol Last Admin: 10/23/18 09:10 Dose: 150 mg - Labs Labs: 10/23/18 06:45 10/23/18 06:45 Attending/Attestation - Attestation I have personally seen and examined this patient.: Yes I have fully participated in the care of the patient.: Yes I have reviewed all pertinent clinical information, including history, physical exam and plan: Yes Notes (Text): 10/23/18 16:12 48 year old female with past medical history of CVA with residual left sided weakness, seizure disorder and fibromyalgia who presented with complaint of seizure episode while in muslim and chest pain. D-Dimer was elevated however VQ scan and LE doppler was negative. Neurology evaluation was appreciated who increased topamax and decreased gabapentin doses. EEG and repeat CT head are ordered. Cardiology is following for complaint of chest pain which she complained of again this afternoon while working with physical therapy. Will follow up repeat troponin and cardiology recommendations. Miralax is added for complaint of constipation. PT evlauation was appreciated who is recommending TCU. Tia Chanel MD Hospitalist.
--- NOTE | 2018-10-23 15:51 | CT ---
Date of service: 10/23/2018 PROCEDURE: CT HEAD WITHOUT CONTRAST. HISTORY: dizziness, weakness COMPARISON: 10/21/2018 TECHNIQUE: Axial computed tomography images were obtained through the head/brain without intravenous contrast. Supplemental Coronal and Sagittal projections created and reviewed. Radiation dose: Total exam DLP = 815.80 mGy-cm. This CT exam was performed using one or more of the following dose reduction techniques: Automated exposure control, adjustment of the mA and/or kV according to patient size, and/or use of iterative reconstruction technique. FINDINGS: HEMORRHAGE: No intracranial hemorrhage. BRAIN: No mass effect or edema. No atrophy or chronic microvascular ischemic changes. VENTRICLES: Unremarkable. No hydrocephalus. CALVARIUM: Unremarkable. PARANASAL SINUSES: Unremarkable as visualized. No significant inflammatory changes. MASTOID AIR CELLS: Unremarkable as visualized. No inflammatory changes. OTHER FINDINGS: None. IMPRESSION: No acute intracranial abnormalities. No significant findings to account for the clinical presentation. No significant interval change compared to the prior examination(s).
[2018-10-24] MEDS: Pantoprazole 40 mg EC Tab PO SCH (05:59)
[2018-10-24 07:41] LABS: BASO # 0.01 K/mm3 (0.0-2.0); BASO % 0.3 % (0.0-3.0); EOS # 0.1 (0.0-0.7); EOS % 3.1 % (1.5-5.0); HEMOGLOBIN 11.6 g/dL (12.0-16.0); LYMPH # 1.4 (1.2-3.4); LYMPH % 35.7 % (22.0-35.0); MEAN CELL VOLUME 85.8 fl (80.0-105.0); MEAN CORPUSCULAR HEMOGLOBIN 26.5 pg (25.0-35.0); MEAN CORPUSCULAR HGB CONC 30.9 g/dl (31.0-37.0); MEAN PLATELET VOLUME 11.6 fl (7.0-11.0); MONO # 0.3 (0.1-0.6); MONO % 7.3 % (1.0-6.0); RBC 4.37 10^6/uL (3.5-6.1); RED CELL DISTRIBUTION WIDTH 23.5 % (11.5-14.5); WHITE BLOOD COUNT 3.8 10^3/uL (4.5-11.0)
[2018-10-24 07:59] LABS: TROPONIN I < 0.01 ng/mL
[2018-10-24 08:22] LABS: ALB/GLOB RATIO 1.1 (1.1-1.8); ALBUMIN 4.2 g/dL (3.0-4.8); ALT/SGPT 101 U/L (7-56); AST/SGOT 123 U/L (14-36); BLOOD UREA NITROGEN 16 mg/dL (7-21); CALCIUM 9.3 mg/dL (8.4-10.5); GFR NON-AFRICAN AMERICAN > 60
--- NOTE | 2018-10-24 08:28 | PN ---
DATE: 10/24/2018 SUBJECTIVE: The patient is seen lying in bed, on telemetry. She apparently had some chest discomfort yesterday while ambulating. Repeat cardiac enzymes were negative. Electrocardiogram showed nonspecific changes. She also had an episode of reduced responsiveness and was sent for a CT of the head which was unchanged. She is resting comfortably in bed at the present time. She denies any chest pain. MEDICATIONS: Her current medications include Ativan, Cymbalta, Ecotrin, Lovenox, MiraLax, Neurontin, Protonix, Singulair, Topamax, and Xopenex. OBJECTIVE: GENERAL: She is a middle-aged woman who appears comfortable at the present time. VITAL SIGNS: Blood pressure is 106/70 with pulse of 70 and sinus, respirations are 14. She is afebrile. HEENT: No JVD. CHEST: Clear to auscultation and percussion. HEART: No pathological gallops noted. ABDOMEN: Soft and nontender with bowel sounds. EXTREMITIES: No edema. DIAGNOSTIC DATA: No blood work pending from this morning. IMPRESSION: 1. Recurrent chest pain, etiology uncertain, apparently had a stress test performed recently with Dr. Jean Carlos Smyth which was reportedly unremarkable. 2. History of seizure disorder. 3. Rest of problems as noted. RECOMMENDATIONS: If she has recurrent chest pain, consideration may need to be given to cardiac catheterization to definitively assess the potential presence of coronary disease. I would contact Dr. Jean Carlos Smyth regarding this as he has been the primary insurance follow up rep for this patient for sometime. Resumption of ambulation and activity is advised for now. I will follow along as needed. Lee Cuellar MD
[2018-10-24] MEDS: POLYETHYLENE GLYCOL 3350 17 GM/Dose PACKET PO SCH ×2 (09:49→17:56)
[2018-10-24] MEDS: Enoxaparin 40 mg Syringe SC SCH (09:49)
--- NOTE | 2018-10-24 10:34 | CP.PCM.PN ---
<Ruben Cedeno - Last Filed: 10/24/18 14:12> Subjective - Date & Time of Evaluation Date of Evaluation: 10/24/18 Time of Evaluation: 09:30 - Subjective Subjective: Ruben Cedeno, PGY1 Medicine Progress Note: Pt was seen and examined at bedside in the AM. Pt today states that she is feeling better than she was yesterday after her PT session. Pt also had no acute overnight events. Pt states that she is no longer feeling any headache, fevers, chills, SOB, cough, chest pain, palpitations, abd pain, n/v, c/d or dysuria. She does admit to having a BM yesterday. Objective - Vital Signs/Intake and Output Vital Signs (last 24 hours): Temp Pulse Resp BP Pulse Ox 97.4 F L 74 18 105/71 100 10/24/18 06:00 10/24/18 06:00 10/23/18 22:48 10/23/18 22:48 10/23/18 17:08 Intake and Output: 10/24/18 10/24/18 06:59 18:59 Intake Total 0 Balance 0 - Medications Medications: Current Medications Aspirin (Ecotrin) 81 mg PO DAILY [facility] Last Admin: 10/24/18 09:50 Dose: 81 mg Duloxetine HCl (Cymbalta) 60 mg PO DAILY [facility] Last Admin: 10/24/18 09:49 Dose: 60 mg Enoxaparin Sodium (Lovenox) 40 mg SC DAILY [facility]; Protocol Last Admin: 10/24/18 09:49 Dose: 40 mg Gabapentin (Neurontin) 800 mg PO TID [facility]; Protocol Last Admin: 10/24/18 10:04 Dose: 800 mg Ibuprofen (Motrin Tab) 600 mg PO Q6H PRN PRN Reason: Pain, moderate (4-7) Last Admin: 10/22/18 14:11 Dose: 600 mg Levalbuterol HCl (Xopenex) 0.63 mg IH [id number] PRN PRN Reason: Shortness of Breath Last Admin: 10/22/18 10:12 Dose: 0.63 mg Lorazepam (Ativan) 2 mg IVP Q2H PRN; Protocol PRN Reason: Seizure activity Montelukast Sodium (Singulair) 10 mg PO [facility] Last Admin: 10/23/18 21:39 Dose: 10 mg Pantoprazole Sodium (Protonix Ec Tab) 40 mg PO 0600 [facility] Last Admin: 10/24/18 05:59 Dose: 40 mg Polyethylene Glycol (Miralax) 17 gm PO BID [facility] Last Admin: 10/24/18 09:49 Dose: 17 gm Topiramate (Topamax) 150 mg PO DAILY [facility]; Protocol Last Admin: 10/24/18 09:49 Dose: 150 mg - Labs Labs: 10/24/18 07:00 10/24/18 07:00 - Constitutional Appears: Non-toxic, No Acute Distress - Head Exam Head Exam: ATRAUMATIC, NORMAL INSPECTION, NORMOCEPHALIC - Eye Exam Eye Exam: EOMI, Normal appearance, PERRL - Respiratory Exam Respiratory Exam: Clear to Ausculation Bilateral, NORMAL BREATHING PATTERN. absent: Accessory Muscle Use, Rales, Rhonchi, Wheezes, Respiratory Distress, Stridor - Cardiovascular Exam Cardiovascular Exam: RRR, +S1, +S2. absent: Gallop, Rubs - GI/Abdominal Exam GI & Abdominal Exam: Soft, Normal Bowel Sounds. absent: Firm, Guarding, Te nderness - Extremities Exam Extremities Exam: Normal Capillary Refill, Normal Inspection - Back Exam Back Exam: NORMAL INSPECTION. absent: CVA tenderness (L), CVA tenderness (R) - Neurological Exam Neurological Exam: Alert, Awake, Oriented x 3 Additional comments: LLE weakness noted, chronic 2/2 old CVA. - Psychiatric Exam Psychiatric exam: Flat Affect - Skin Skin Exam: Dry, Normal Color, Warm Assessment and Plan - Assessment and Plan (Free Text) Assessment: Patient is a 48 year old female with past medical history of CVA with residual left sided weakness, epilepsy, fibromyalgia presenting s/p seizure episode, also complaining of chest pain. Plan: Seizure - CT head prelim read shows possible tiny petechial hemorrhage in left basal ganglia vs. artifact - Ativan PRN - EEG - awaiting report - Seizure/aspiration precautions - Neurology consulted, rec appreciated - home Topamax 150 mg PO daily, Gabapentin 800 mg PO TID - Pt displaying signs of catatonia after PT work - Repeat CT head - Showed no interval change from previous study. Also showed - PT - recommend TCU Atypical chest pain - Troponin negx3 - Troponins repeated this AM, noted to be (-) - ECHO from 09/2018 shows EF 60-65% - EKG - NSR HR @ 67 - TSH: 3.09 - ASA 81 mg PO daily - Oxygen NC - Cardiology consulted Constipation: - Pt started on miralax, and has responded - Will continue to monitor Elevated d-dimer - V/Q scan (-) for PE PPX - Pepcid, Lovenox DE Case reviewed with Dr. Yanique Cedeno PGY-1 <Tia Chanel - Last Filed: 10/24/18 14:34> Objective - Vital Signs/Intake and Output Vital Signs (last 24 hours): Temp Pulse Resp BP Pulse Ox 98 F 96 H 20 91/69 L 100 10/24/18 11:48 10/24/18 11:48 10/24/18 11:48 10/24/18 11:48 10/23/18 17:08 Intake and Output: 10/24/18 10/24/18 06:59 18:59 Intake Total 0 Balance 0 - Medications Medications: Current Medications Aspirin (Ecotrin) 81 mg PO DAILY [facility] Last Admin: 10/24/18 09:50 Dose: 81 mg Duloxetine HCl (Cymbalta) 60 mg PO DAILY [facility] Last Admin: 10/24/18 09:49 Dose: 60 mg Enoxaparin Sodium (Lovenox) 40 mg SC DAILY [facility]; Protocol Last Admin: 10/24/18 09:49 Dose: 40 mg Gabapentin (Neurontin) 800 mg PO TID [facility]; Protocol Last Admin: 10/24/18 14:08 Dose: 800 mg Ibuprofen (Motrin Tab) 600 mg PO Q6H PRN PRN Reason: Pain, moderate (4-7) Last Admin: 10/22/18 14:11 Dose: 600 mg Levalbuterol HCl (Xopenex) 0.63 mg IH [id number] PRN PRN Reason: Shortness of Breath Last Admin: 10/22/18 10:12 Dose: 0.63 mg Lorazepam (Ativan) 2 mg IVP Q2H PRN; Protocol PRN Reason: Seizure activity Montelukast Sodium (Singulair) 10 mg PO HS [facility] Last Admin: 10/23/18 21:39 Dose: 10 mg Pantoprazole Sodium (Protonix Ec Tab) 40 mg PO 0600 [facility] Last Admin: 10/24/18 05:59 Dose: 40 mg Polyethylene Glycol (Miralax) 17 gm PO BID [facility] Last Admin: 10/24/18 09:49 Dose: 17 gm Topiramate (Topamax) 150 mg PO DAILY [facility]; Protocol Last Admin: 10/24/18 09:49 Dose: 150 mg - Labs Labs: 10/24/18 07:00 10/24/18 07:00 Attending/Attestation - Attestation I have personally seen and examined this patient.: Yes I have fully participated in the care of the patient.: Yes I have reviewed all pertinent clinical information, including history, physical exam and plan: Yes Notes (Text): 10/24/18 14:32 48 year old female with past medical history of CVA with residual left sided weakness, seizure disorder and fibromyalgia who presented with complaint of seizure episode while in [place] and chest pain. D-Dimer was elevated however VQ scan and LE doppler was negative. Neurology evaluation was appreciated who increased topamax and decreased gabapentin doses. EEG is pending. Serial troponins have been negative, however patient still endorsed chest pain with activity yesterday. Cardiology is following; will follow up with recommendations regarding cardiac cath. LFTs are elevated; will obtain abdominal ultrasound. PT evlauation was appreciated who is recommending TCU. Tia Chanel MD Hospitalist.
--- NOTE | 2018-10-24 13:25 | US ---
Date of service: 10/24/2018 HISTORY: Elevated LFTs COMPARISON: None. TECHNIQUE: Sonographic evaluation of the abdomen. FINDINGS: LIVER: Measures 11 x 13.0 cm. Hepatopedal blood flow. Fatty infiltration manifest ultrasonographically as increased echogenicity of the liver parenchyma. No mass. No intrahepatic bile duct dilatation. GALLBLADDER: Status post cholecystectomy. No abnormality is seen in the gallbladder fossa. COMMON BILE DUCT: Measures 8.3 mm. No stones. No dilatation. PANCREAS: Obscured by overlying bowel gas. Non diagnostic assessment of the pancreas. RIGHT KIDNEY: Measures 5.1 x 9.5cm. Normal echogenicity. No calculus, mass, or hydronephrosis. LEFT KIDNEY: Measures 4.6 x 10.4cm. Normal echogenicity. No mass, or hydronephrosis.Incidental finding(s): Solitary lower pole calculus 5 x 6 mm. SPLEEN: Normal in size and contour. No mass. AORTA: No aneurysmal dilatation. IVC: Unremarkable. OTHER FINDINGS: None. IMPRESSION: Hepatic steatosis without focal liver abnormality. Subcentimeter nonobstructing lower pole calculus left kidney.
--- NOTE | 2018-10-24 22:54 | CON ---
DATE: 10/24/2018 HISTORY OF PRESENT ILLNESS: In short, the patient is a 48-year-old female with a reported history of epilepsy and fibromyalgia. The patient was admitted on the medical side for evaluation of questionable seizure activities. Psych consult was called because the patient presented oddly related and thought process was circumstantial and tangential. The patient was seen and examined today. The patient presented to be alert, seems to be fair historian. The patient reported that she has history of bipolar disorder. She has history of being admitted to the psychiatric inpatient unit 3 times, most recent was "years back". The patient reported that she was admitted majority of the time for couple of days only. The patient reported that she moved from [place] and most hospitalizations were in [place]. The patient reported recently she was looking for outpatient psychiatrist to follow up. The patient reported that she does not have history of hearing voices, denied history of seeing things. Denied paranoid ideation. The patient reported that she lives with her daughter and she is her primary caregiver. The patient reported no suicidal ideation, no homicidal ideation. The patient denied thoughts of harming herself or others. VITAL SIGNS: Vital signs reviewed. Temperature 97.4, pulse is 96, blood pressure 91/69, respirations of 20. MEDICATIONS: Medications reviewed. Aspirin, Cymbalta 60 mg daily, Lovenox, gabapentin 800 mg 3 times a day, Motrin, levalbuterol, Ativan 2 mg IV push q. 2 hours p.r.n. for seizure activities, Singulair, Protonix, MiraLax, Topamax 150 mg daily. LABORATORY DATA: Labs reviewed. Coagulation reviewed. Chemistry reviewed. Urinalysis reviewed. Reports reviewed. MENTAL STATUS EXAMINATION: The patient presented to be alert and oriented, well related to this insurance underwriter. Affect was reactive. Thought process seems to be mildly disorganized. Mood described as okay. Thought content, the patient denied visual, auditory, tactile hallucinations. Denied paranoid ideation. The patient denied thoughts of harming herself or others. Denied intents or plan. Insight and judgment seems to be fair. Impulses are well controlled. The patient does not present to be psychotic or depressed. IMPRESSION: As per history, bipolar disorder. Currently, the patient was admitted on the medical side for evaluation of seizure activities. PLAN: We will continue Cymbalta, we will continue Topamax, which could give relief for her seizures as well as could be used as a mood stabilizer. Neurontin should be continued because the patient said that she is taking that medication for mood stabilization. The patient reported that the medications such as lorazepam as well as Lexapro were more beneficial. The patient has history of being on Latuda, there is no reason to start that medication. The patient denied any thoughts of harming herself or others. This insurance underwriter will provide the patient with outpatient provider's information. The patient was appreciative. Should you have any questions, give me a call back. This insurance underwriter will follow up on this patient tomorrow. Thank you very much. Ada Eddy MD [email or web address]
[2018-10-25] MEDS: Pantoprazole 40 mg EC Tab PO SCH (06:15)
[2018-10-25 07:32] LABS: BASO # 0.02 K/mm3 (0.0-2.0); BASO % 0.5 % (0.0-3.0); EOS # 0.1 (0.0-0.7); EOS % 3.1 % (1.5-5.0); HEMOGLOBIN 11.5 g/dL (12.0-16.0); LYMPH # 1.8 (1.2-3.4); LYMPH % 41.6 % (22.0-35.0); MEAN CELL VOLUME 85.5 fl (80.0-105.0); MEAN CORPUSCULAR HEMOGLOBIN 26.1 pg (25.0-35.0); MEAN CORPUSCULAR HGB CONC 30.6 g/dl (31.0-37.0); MEAN PLATELET VOLUME 11.8 fl (7.0-11.0); MONO # 0.4 (0.1-0.6); RBC 4.4 10^6/uL (3.5-6.1); RED CELL DISTRIBUTION WIDTH 23.3 % (11.5-14.5); WHITE BLOOD COUNT 4.2 10^3/uL (4.5-11.0)
[2018-10-25 08:05] LABS: ALB/GLOB RATIO 1.1 (1.1-1.8); ALT/SGPT 192 U/L (7-56); AST/SGOT 252 U/L (14-36); BLOOD UREA NITROGEN 20 mg/dL (7-21); CALCIUM 9.2 mg/dL (8.4-10.5); GFR NON-AFRICAN AMERICAN 59
--- NOTE | 2018-10-25 08:18 | PN ---
DATE: 10/25/2018 SUBJECTIVE: The patient is seen lying in bed on telemetry. She is comfortable at the present time. She had no chest pain until the day yesterday. CURRENT MEDICATIONS: Remain Ativan, Cymbalta, Ecotrin, Lovenox, Neurontin, Protonix, Singulair, Topamax and Xopenex. PHYSICAL EXAMINATION: GENERAL: She is a middle-aged woman who appears comfortable at the present time. VITAL SIGNS: Blood pressure 100/68 with pulse of 66, respirations are 14. She is afebrile. HEENT: No JVD. CHEST: Few scattered rhonchi. HEART: No pathological murmurs or gallops noted. ABDOMEN: Soft and nontender with normoactive bowel sounds. EXTREMITIES: No edema. LABORATORY DATA: Morning blood work pending. IMPRESSION: 1. History of chest pain with a reported recent negative stress test. 2. History of seizure disorder. 3. Rest of the problems as noted. RECOMMENDATIONS: It will be advisable to contact Dr. Jean Carlos Smyth, her primary animal control licensing worker, for his input on her general condition. If there is concern that her pain is truly cardiac in nature despite her negative stress test, a cardiac catheterization may be warranted. If she remains stable, outpatient discharge with him can be planned. I will be happy to see as needed. Lee Cuellar MD
--- NOTE | 2018-10-25 10:26 | PN ---
DATE: 10/25/2018 FOLLOWUP NOTE SUBJECTIVE: The patient is 48-year-old female with self-reported history of bipolar disorder, history of mood and three psychiatric admissions in [place] for manic episodes. The patient was admitted on the medical side for possible seizure episode. Psych was called for evaluation of the patient mood and medications. Please see initial note for more detailed information. The patient was seen today. The patient presented well. The patient reported that she slept well. Denied being depressed. Denied thoughts of harming herself or others. The patient denied hearing voices, denied seeing things. The patient asked about local providers and this senior underwriter gave the patient printout with information about local providers including [facility] clinic here in [place], [facility], [facility] outpatient clinics as well as [facility] outpatient clinics. The patient was appreciated. OBJECTIVE: VITAL SIGNS: Reviewed. Blood pressure is low. MEDICATIONS: Reviewed. The patient is on Cymbalta 60 mg daily, Neurontin 800 mg three times a day, Ativan, Singulair, MiraLax, Topamax 150 mg daily. LABORATORY DATA: Reviewed. Most recent was from today. Chemistry reviewed. AST and ALT are elevated. Urinalysis reviewed. MENTAL STATUS EXAMINATION: The patient presented to be alert and oriented, pleasant, cooperative. Fair eye contact. Speech was underproductive, low volume. Mood described as good. Affect was reactive, mood congruent. Thought process was coherent and goal directed. Thought content, the patient denied visual, auditory, tactile hallucinations. Denied paranoid ideation. The patient denied thoughts of harming herself or others. Denied intent or plan. Insight and judgment seems to be improving. Impulses are well controlled. IMPRESSION: As per history, bipolar disorder, but it seems the patient is in remission, history of anxiety disorder. PLAN Continue current management. Continue current medication. The patient most likely required to be transferred to transitional care unit for physical therapy. Meanwhile, this senior underwriter will follow up on this patient every other day. Should you have any questions, give me a call back. Thank you very much for letting me participate in care of your patient. Ada Eddy MD [facility] # [id number]
[2018-10-25] MEDS: Enoxaparin 40 mg Syringe SC SCH (10:28)
[2018-10-25] MEDS: POLYETHYLENE GLYCOL 3350 17 GM/Dose PACKET PO SCH ×2 (10:29→17:38)
--- NOTE | 2018-10-25 12:24 | CP.PCM.PCO ---
Physician Communication Note - Physician Communication Note Physician Communication Note: constipation, elevated LFT's, questionable med. adjust, PT rec TCU
--- NOTE | 2018-10-25 14:30 | CP.PCM.PN ---
<Ruben Cedeno - Last Filed: 10/25/18 16:45> Subjective - Date & Time of Evaluation Date of Evaluation: 10/25/18 Time of Evaluation: 16:45 - Subjective Subjective: Ruben Cedeno, PGY1 Medicine Progress Note: Pt was seen and examined at bedside in the AM. Pt overnight states that she had some b/l LE pain. Pt states that she is no longer feeling any headache, fevers, chills, SOB, cough, chest pain, palpitations, n/v, d or dysuria. She continues to admit to constipation and related abd pain, states that the stool regimen is not helping her have a BM. Objective - Vital Signs/Intake and Output Vital Signs (last 24 hours): Temp Pulse Resp BP Pulse Ox 97.7 F 93 H 20 102/72 100 10/25/18 12:00 10/25/18 12:00 10/25/18 12:00 10/25/18 12:00 10/25/18 06:00 Intake and Output: 10/25/18 10/25/18 06:59 18:59 Intake Total 1560 Output Total 2 Balance 1558 - Medications Medications: Current Medications Aspirin (Ecotrin) 81 mg PO DAILY [facility] Last Admin: 10/25/18 10:28 Dose: 81 mg Duloxetine HCl (Cymbalta) 60 mg PO DAILY [facility] Last Admin: 10/25/18 10:28 Dose: 60 mg Enoxaparin Sodium (Lovenox) 40 mg SC DAILY [facility]; Protocol Last Admin: 10/25/18 10:28 Dose: 40 mg Gabapentin (Neurontin) 800 mg PO TID [facility]; Protocol Last Admin: 10/25/18 13:51 Dose: 800 mg Ibuprofen (Motrin Tab) 600 mg PO Q6H PRN PRN Reason: Pain, moderate (4-7) Last Admin: 10/25/18 00:19 Dose: 600 mg Lactulose (Enulose) 15 gm PO BID [facility] Stop: 10/25/18 18:01 Last Admin: 10/25/18 11:21 Dose: 15 gm Levalbuterol HCl (Xopenex) 0.63 mg IH [id number] PRN PRN Reason: Shortness of Breath Last Admin: 10/22/18 10:12 Dose: 0.63 mg Lorazepam (Ativan) 2 mg IVP Q2H PRN; Protocol PRN Reason: Seizure activity Montelukast Sodium (Singulair) 10 mg PO HS [facility] Last Admin: 10/24/18 21:44 Dose: 10 mg Pantoprazole Sodium (Protonix Ec Tab) 40 mg PO 0600 [facility] Last Admin: 10/25/18 06:15 Dose: 40 mg Polyethylene Glycol (Miralax) 17 gm PO BID [facility] Last Admin: 10/25/18 10:29 Dose: 17 gm Topiramate (Topamax) 150 mg PO DAILY [facility]; Protocol Last Admin: 10/25/18 10:28 Dose: 150 mg - Labs Labs: 10/25/18 07:15 10/25/18 07:15 - Constitutional Appears: Non-toxic, No Acute Distress - Head Exam Head Exam: ATRAUMATIC, NORMAL INSPECTION, NORMOCEPHALIC - Eye Exam Eye Exam: EOMI, Normal appearance, PERRL - Respiratory Exam Respiratory Exam: Clear to Ausculation Bilateral, NORMAL BREATHING PATTERN. absent: Accessory Muscle Use, Rales, Rhonchi, Wheezes, Respiratory Distress, Stridor - Cardiovascular Exam Cardiovascular Exam: RRR, +S1, +S2. absent: Gallop, Rubs - GI/Abdominal Exam GI & Abdominal Exam: Soft, Normal Bowel Sounds, Tenderness (in epigastric region). absent: Firm, Guarding, - Extremities Exam Extremities Exam: Normal Capillary Refill, Normal Inspection - Back Exam Back Exam: NORMAL INSPECTION. absent: CVA tenderness (L), CVA tenderness (R) - Neurological Exam Neurological Exam: Alert, Awake, Oriented x 3 Additional comments: LLE weakness noted, chronic 2/2 old CVA. - Psychiatric Exam Psychiatric exam: Flat Affect - Skin Skin Exam: Dry, Normal Color, Warm Assessment and Plan - Assessment and Plan (Free Text) Assessment: Patient is a 48 year old female with past medical history of CVA with residual left sided weakness, epilepsy, fibromyalgia presenting s/p seizure episode, also complaining of chest pain. Plan: Seizure - CT head prelim read shows possible tiny petechial hemorrhage in left basal ganglia vs. artifact - Ativan PRN - EEG - awaiting report - Seizure/aspiration precautions - Neurology consulted, rec appreciated - home Topamax 150 mg PO daily, Gabapentin 800 mg PO TID - Pt displaying signs of catatonia after PT work - Repeat CT head - Showed no interval change from previous study. Also showed - PT - recommend TCU Transaminitis: - Suspected to be 2/2 medication induced - Abd US showed hepatic steatosis without focal liver abnormality - Will discuss with Neuro, if related to any increase in medication. Atypical chest pain - Troponin negx3 - ECHO from 09/2018 shows EF 60-65% - EKG - NSR HR @ 67 - TSH: 3.09 - ASA 81 mg PO daily - Oxygen NC - Cardiology consulted, recommended outpt follow up for cath Constipation: - Pt started on miralax - Started on lactulose and then changed to Senna, after complaints of cramping and abd pain. - Cont to monitor Elevated d-dimer - V/Q scan (-) for PE PPX - Pepcid, Lovenox SC Case reviewed with Dr. Vanessa Cedeno PGY-1 <Jerry Mendez - Last Filed: 10/29/18 16:50> Objective - Vital Signs/Intake and Output Vital Signs (last 24 hours): Temp Pulse Resp BP Pulse Ox 98.3 F 80 20 95/65 L 96 10/29/18 14:00 10/29/18 14:00 10/29/18 14:00 10/29/18 14:00 10/29/18 14:00 Intake and Output: 10/29/18 10/29/18 06:59 18:59 Intake Total 540 Output Total 300 Balance 240 - Medications Medications: Current Medications Aspirin (Ecotrin) 81 mg PO DAILY [facility] Last Admin: 10/29/18 13:26 Dose: Not Given Duloxetine HCl (Cymbalta) 60 mg PO DAILY [facility] Last Admin: 10/28/18 09:37 Dose: 60 mg Enoxaparin Sodium (Lovenox) 40 mg SC DAILY [facility]; Protocol Last Admin: 10/29/18 13:26 Dose: Not Given Famotidine (Pepcid) 20 mg PO DAILY [facility] Last Admin: 10/29/18 13:27 Dose: Not Given Gabapentin (Neurontin) 1,200 mg PO TID [facility]; Protocol Last Admin: 10/29/18 15:24 Dose: 1,200 mg Sodium Chloride (Sodium Chloride 0.9%) 1,000 mls @ 100 mls/hr IV .Q10H [facility] Last Admin: 10/29/18 09:37 Dose: 100 mls/hr Ibuprofen (Motrin Tab) 600 mg PO Q6H PRN PRN Reason: Pain, moderate (4-7) Last Admin: 10/28/18 17:29 Dose: 600 mg Levalbuterol HCl (Xopenex) 0.63 mg IH [id number] PRN PRN Reason: Shortness of Breath Last Admin: 10/22/18 10:12 Dose: 0.63 mg Lidocaine (Lidoderm) 1 ea TD DAILY [facility] Last Admin: 10/29/18 15:25 Dose: 1 ea Lorazepam (Ativan) 2 mg IVP Q4H PRN; Protocol PRN Reason: Anxiety Last Admin: 10/26/18 15:20 Dose: 2 mg Montelukast Sodium (Singulair) 10 mg PO HS [facility] Last Admin: 10/27/18 21:16 Dose: 10 mg Ondansetron HCl (Zofran Inj) 4 mg IVP Q6H PRN PRN Reason: Nausea/Vomiting Last Admin: 10/27/18 15:28 Dose: 4 mg Pantoprazole Sodium (Protonix Ec Tab) 40 mg PO 0600 [facility] Last Admin: 10/28/18 05:16 Dose: 40 mg Polyethylene Glycol (Miralax) 17 gm PO BID [facility] Last Admin: 10/29/18 13:27 Dose: Not Given Sennosides (Senokot Tab) 8.6 mg PO DAILY [facility] Last Admin: 10/29/18 13:28 Dose: Not Given Topiramate (Topamax) 150 mg PO DAILY [facility]; Protocol Last Admin: 10/26/18 10:17 Dose: 150 mg - Labs Labs: 10/29/18 07:00 10/29/18 07:00 PT 12.5 SECONDS (9.4-12.5) 10/29/18 10:35 INR 1.11 10/29/18 10:35 APTT 36.9 Seconds (26.9-38.3) 10/29/18 10:35 Attending/Attestation - Attestation I have personally seen and examined this patient.: Yes I have fully participated in the care of the patient.: Yes I have reviewed all pertinent clinical information, including history, physical exam and plan: Yes Notes (Text): 10/29/18 16:45 48 year old female with past medical history of CVA with residual left sided weakness, seizure disorder and fibromyalgia who presented with complaint of seizure episode while in [employer] and chest pain. D-Dimer was elevated however VQ scan and LE doppler was negative. Serial troponins are normal. Topamax dose was increased but patient has devloped Transaminitis, will hold Topamax We will get neurology follow up. Avoid hepatotoxic medications. Management plan was discussed in detail with patient. Education was provided. ,
[2018-10-26] MEDS: Pantoprazole 40 mg EC Tab PO SCH (06:11)
[2018-10-26 07:42] LABS: ALB/GLOB RATIO 1.1 (1.1-1.8); ALBUMIN 3.8 g/dL (3.0-4.8); ALT/SGPT 263 U/L (7-56); AST/SGOT 263 U/L (14-36); BLOOD UREA NITROGEN 21 mg/dL (7-21); CALCIUM 9.4 mg/dL (8.4-10.5); GFR NON-AFRICAN AMERICAN 59
[2018-10-26 09:59] LABS: BASO # 0.01 K/mm3 (0.0-2.0); BASO % 0.2 % (0.0-3.0); EOS # 0.1 (0.0-0.7); EOS % 2.2 % (1.5-5.0); HEMOGLOBIN 11.4 g/dL (12.0-16.0); LYMPH # 1.3 (1.2-3.4); LYMPH % 23.8 % (22.0-35.0); MEAN CELL VOLUME 85.3 fl (80.0-105.0); MEAN CORPUSCULAR HEMOGLOBIN 26.6 pg (25.0-35.0); MEAN CORPUSCULAR HGB CONC 31.2 g/dl (31.0-37.0); MEAN PLATELET VOLUME 12.2 fl (7.0-11.0); MONO # 0.4 (0.1-0.6); MONO % 7.7 % (1.0-6.0); RBC 4.28 10^6/uL (3.5-6.1); RED CELL DISTRIBUTION WIDTH 23.2 % (11.5-14.5); WHITE BLOOD COUNT 5.4 10^3/uL (4.5-11.0)
[2018-10-26] MEDS: Enoxaparin 40 mg Syringe SC SCH (10:16)
[2018-10-26] MEDS: POLYETHYLENE GLYCOL 3350 17 GM/Dose PACKET PO SCH ×2 (10:16→20:17)
--- NOTE | 2018-10-26 11:24 | CP.PCM.CON ---
<Karan Mancia - Last Filed: 10/26/18 15:26> History of Present Illness - History of Present Illness History of Present Illness: Karan Mancia PGY2 Neurology Consult Note for Dr. Lo 48 year old female with past medical history of CVA with residual left sided weakness, seizures, epilepsy, obesity, anemia, fibromyalgia, neuropathy, seasonal disorder presented initially s/p seizure like episode. Patient was started on topamax as she was not taking any medication for adequate seizure control. Neurology is being consulted by medicine due to elevated liver function which they believe could be from topamax. Patient denies fevers, chills, shortness of breath, nausea, vomiting, diarrhea, dysuria, headaches, numbness or tingling but has some epigastric tenderness. PMH: CVA (2005), epilepsy, obesity, anemia, fibromyalgia, neuropathy, fibroids, endometriosis, seasonal disorder PSH: gastric bypass, hernia, cholecystectomy, , total hysterectomy, nerve block for lumbago SHx: denies alcohol, tobacco, illicit drug use FHx: mother (lupus), father (bone cancer) Allergies: iodine, morphine, tramadol, metaclopramide, phenytoin, zolpidem Meds: Per OCT PMD: Dr. Hearn Review of Systems - Cardiovascular Cardiovascular: absent: Chest Pain, Dyspnea - Respiratory Respiratory: absent: Dyspnea - Gastrointestinal Gastrointestinal: Abdominal Pain, Constipation. absent: Nausea, Vomiting - Neurological Neurological: absent: Confusion, Disequilibrium, Dizziness, Numbness, Focal Weakness, Headaches, Memory Loss, Tingling, Tremor, Weakness Past Patient History - Past Social History Smoking Status: Never Smoked - CARDIAC Hx Cardiac Disorders: No - PULMONARY Hx Respiratory Disorders: No - NEUROLOGICAL Hx Neurological Disorder: Yes HX Cerebrovascular Accident: Yes (2005) Hx Seizures: Yes - HEMATOLOGICAL/ONCOLOGICAL Hx Anemia: Yes - MUSCULOSKELETAL/RHEUMATOLOGICAL Other/Comment: Neuropathy - GASTROINTESTINAL Hx Gastrointestinal Disorders: No - GENITOURINARY/GYNECOLOGICAL Hx Genitourinary Disorders: No - PSYCHIATRIC Hx Psychophysiologic Disorder: No Hx Substance Use: No - SURGICAL HISTORY Hx Surgeries: Yes Meds Allergies/Adverse Reactions: Allergies Allergy/AdvReac Type Severity Reaction Status Date / Time iodine Allergy ANAPHYLAXIS Verified 10/21/18 22:54 morphine Allergy NAUSEA Verified 10/21/18 22:54 tramadol Allergy ITCHING Verified 10/21/18 22:54 - Medications Medications: Current Medications Aspirin (Ecotrin) 81 mg PO DAILY [facility] Last Admin: 10/26/18 10:17 Dose: 81 mg Duloxetine HCl (Cymbalta) 60 mg PO DAILY [facility] Last Admin: 10/26/18 10:16 Dose: 60 mg Enoxaparin Sodium (Lovenox) 40 mg SC DAILY [facility]; Protocol Last Admin: 10/26/18 10:16 Dose: 40 mg Gabapentin (Neurontin) 800 mg PO TID [facility]; Protocol Last Admin: 10/26/18 10:16 Dose: 800 mg Ibuprofen (Motrin Tab) 600 mg PO Q6H PRN PRN Reason: Pain, moderate (4-7) Last Admin: 10/25/18 15:59 Dose: 600 mg Levalbuterol HCl (Xopenex) 0.63 mg IH [id number] PRN PRN Reason: Shortness of Breath Last Admin: 10/22/18 10:12 Dose: 0.63 mg Lorazepam (Ativan) 2 mg IVP Q2H PRN; Protocol PRN Reason: Seizure activity Lorazepam (Ativan) 2 mg IVP Q4H PRN; Protocol PRN Reason: Anxiety Montelukast Sodium (Singulair) 10 mg PO HS [facility] Last Admin: 10/25/18 23:00 Dose: 10 mg Ondansetron HCl (Zofran Inj) 4 mg IVP Q6H PRN PRN Reason: Nausea/Vomiting Last Admin: 10/25/18 20:00 Dose: 4 mg Pantoprazole Sodium (Protonix Ec Tab) 40 mg PO 0600 [facility] Last Admin: 10/26/18 06:11 Dose: 40 mg Polyethylene Glycol (Miralax) 17 gm PO BID [facility] Last Admin: 10/26/18 10:16 Dose: 17 gm Sennosides (Senokot Tab) 8.6 mg PO DAILY [facility] Last Admin: 10/26/18 10:17 Dose: 8.6 mg Topiramate (Topamax) 150 mg PO DAILY [facility]; Protocol Last Admin: 10/26/18 10:17 Dose: 150 mg Results - Vital Signs Recent Vital Signs: Last Vital Signs Temp 98 F 10/26/18 06:00 Pulse 72 10/26/18 06:00 Resp 18 10/26/18 06:00 BP 94/67 L 10/26/18 06:00 Pulse Ox 100 10/25/18 06:00 - Labs Result Diagrams: 10/26/18 05:00 10/26/18 06:00 Labs: Laboratory Results - last 24 hr 10/26/18 10/26/18 05:00 06:00 WBC 5.4 D RBC 4.28 Hgb 11.4 L Hct 36.5 MCV 85.3 MCH 26.6 MCHC 31.2 RDW 23.2 H Plt Count 250 MPV 12.2 H Neut % (Auto) 66.1 Lymph % (Auto) 23.8 Harmon % (Auto) 7.7 H Eos % (Auto) 2.2 Baso % (Auto) 0.2 Lymph # (Auto) 1.3 Harmon # (Auto) 0.4 Eos # (Auto) 0.1 Baso # (Auto) 0.01 Absolute Neuts (auto) 3.59 Sodium 139 Potassium 4.1 Chloride 104 Carbon Dioxide 27 Anion Gap 12 BUN 21 Creatinine 1.0 Est GFR ( Amer) > 60 Est GFR (Non-Af Amer) 59 Random Glucose 91 Calcium 9.4 Phosphorus 5.9 H Magnesium 2.4 H Total Bilirubin 0.2 AST 263 H ALT 263 H Alkaline Phosphatase 105 Total Protein 7.3 Albumin 3.8 Globulin 3.4 Albumin/Globulin Ratio 1.1 Assessment & Plan - Assessment and Plan (Free Text) Assessment: 48 year old female with past medical history of CVA with residual left sided weakness, seizures, epilepsy, obesity, anemia, fibromyalgia, neuropathy, seasonal disorder presented initially s/p seizure like episode, started on topamax as she was not taking any medication for adequate seizure control. Neurology is being consulted by medicine due to elevated liver function which they believe could be from topamax. Plan: Seizure like activity - patient likely does not have seizure disorder underlying - CT intial reviewed no acute changes - Ativan PRN - EEG was negative - continue neurontin 1200 TID - no need for seizure prophylxis at this time - will continue to monitor - topamax DC due to possible hepatoxicity <Brady Lo - Last Filed: 10/26/18 16:27> Meds - Medications Medications: Current Medications Aspirin (Ecotrin) 81 mg PO DAILY [facility] Last Admin: 10/26/18 10:17 Dose: 81 mg Duloxetine HCl (Cymbalta) 60 mg PO DAILY [facility] Last Admin: 10/26/18 10:16 Dose: 60 mg Enoxaparin Sodium (Lovenox) 40 mg SC DAILY [facility]; Protocol Last Admin: 10/26/18 10:16 Dose: 40 mg Gabapentin (Neurontin) 800 mg PO TID [facility]; Protocol Last Admin: 10/26/18 15:03 Dose: 800 mg Ibuprofen (Motrin Tab) 600 mg PO Q6H PRN PRN Reason: Pain, moderate (4-7) Last Admin: 10/25/18 15:59 Dose: 600 mg Levalbuterol HCl (Xopenex) 0.63 mg IH [id number] PRN PRN Reason: Shortness of Breath Last Admin: 10/22/18 10:12 Dose: 0.63 mg Lorazepam (Ativan) 2 mg IVP Q2H PRN; Protocol PRN Reason: Seizure activity Lorazepam (Ativan) 2 mg IVP Q4H PRN; Protocol PRN Reason: Anxiety Last Admin: 10/26/18 15:20 Dose: 2 mg Montelukast Sodium (Singulair) 10 mg PO HS [facility] Last Admin: 10/25/18 23:00 Dose: 10 mg Ondansetron HCl (Zofran Inj) 4 mg IVP Q6H PRN PRN Reason: Nausea/Vomiting Last Admin: 10/26/18 12:39 Dose: 4 mg Pantoprazole Sodium (Protonix Ec Tab) 40 mg PO 0600 [facility] Last Admin: 10/26/18 06:11 Dose: 40 mg Polyethylene Glycol (Miralax) 17 gm PO BID [facility] Last Admin: 10/26/18 10:16 Dose: 17 gm Sennosides (Senokot Tab) 8.6 mg PO DAILY [facility] Last Admin: 10/26/18 10:17 Dose: 8.6 mg Topiramate (Topamax) 150 mg PO DAILY [facility]; Protocol Last Admin: 10/26/18 10:17 Dose: 150 mg Results - Vital Signs Recent Vital Signs: Last Vital Signs Temp 97.5 F L 10/26/18 12:00 Pulse 92 H 10/26/18 12:00 Resp 18 10/26/18 12:00 BP 99/75 L 10/26/18 12:00 Pulse Ox 100 10/25/18 06:00 - Labs Result Diagrams: 10/26/18 05:00 10/26/18 06:00 Labs: Laboratory Results - last 24 hr 10/26/18 10/26/18 10/26/18 05:00 06:00 11:00 WBC 5.4 D RBC 4.28 Hgb 11.4 L Hct 36.5 MCV 85.3 MCH 26.6 MCHC 31.2 RDW 23.2 H Plt Count 250 MPV 12.2 H Neut % (Auto) 66.1 Lymph % (Auto) 23.8 Harmon % (Auto) 7.7 H Eos % (Auto) 2.2 Baso % (Auto) 0.2 Lymph # (Auto) 1.3 Harmon # (Auto) 0.4 Eos # (Auto) 0.1 Baso # (Auto) 0.01 Absolute Neuts (auto) 3.59 Sodium 139 Potassium 4.1 Chloride 104 Carbon Dioxide 27 Anion Gap 12 BUN 21 Creatinine 1.0 Est GFR ( Amer) > 60 Est GFR (Non-Af Amer) 59 Random Glucose 91 Calcium 9.4 Phosphorus 5.9 H Magnesium 2.4 H Iron 87 TIBC 367 % Saturation 24 Total Bilirubin 0.2 AST 263 H ALT 263 H Alkaline Phosphatase 105 Total Protein 7.3 Albumin 3.8 Globulin 3.4 Albumin/Globulin Ratio 1.1 TSH 3rd Generation 10/26/18 11:00 WBC RBC Hgb Hct MCV MCH MCHC RDW Plt Count MPV Neut % (Auto) Lymph % (Auto) Harmon % (Auto) Eos % (Auto) Baso % (Auto) Lymph # (Auto) Harmon # (Auto) Eos # (Auto) Baso # (Auto) Absolute Neuts (auto) Sodium Potassium Chloride Carbon Dioxide Anion Gap BUN Creatinine Est GFR ( Amer) Est GFR (Non-Af Amer) Random Glucose Calcium Phosphorus Magnesium Iron TIBC % Saturation Total Bilirubin AST ALT Alkaline Phosphatase Total Protein Albumin Globulin Albumin/Globulin Ratio TSH 3rd Generation 3.51 Assessment & Plan - Assessment and Plan (Free Text) Assessment: All medical record entries made by the Resident were at my direction and personally dictated by me. I have reviewed the chart and agree that the record accurately reflects my personal performance of the history, physical exam, [facility] decision making, and the department course for this patient. I have also personally directed, reviewed, and agree with the discharge instructions and disposition. Miss Graves is a 48 yr old woman with a questionable history of epilepsy, who is here for possible seizure, which is not clearly described. On further history taking, her seizures appear to be nonepileptic with no clear prodrome and relieved by neurontin. We will leave her off antiepileptic medications, and monitor. In several weeks time, we can reevaluate with VEEG. At this time she is stable to be maintained by neurontin. Thank you Dr. Lo Neurology
--- NOTE | 2018-10-26 12:22 | CP.PCM.PCO ---
Physician Communication Note - Physician Communication Note Physician Communication Note: GI pending consult, neuro reconsulted to adjust medications
[2018-10-26 13:50] LABS: IRON 87 ug/dL (45-180)
--- NOTE | 2018-10-26 13:55 | CP.PCM.PN ---
<Ruben Cedeno - Last Filed: 10/26/18 13:55> Subjective - Date & Time of Evaluation Date of Evaluation: 10/26/18 Time of Evaluation: 13:54 - Subjective Subjective: Ruben Cedeno, PGY1 Medicine Progress Note: Pt was seen and examined at bedside in the AM. Pt overnight states that she had a BM, and is feeling much more comfortable now, but has occasional cramping. Pt states that she still feels no headache, fevers, chills, SOB, cough, chest pain, palpitations, n/v, d or dysuria. No other acute complaints at this time. Objective - Vital Signs/Intake and Output Vital Signs (last 24 hours): Temp Pulse Resp BP Pulse Ox 97.5 F L 92 H 18 99/75 L 100 10/26/18 12:00 10/26/18 12:00 10/26/18 12:00 10/26/18 12:00 10/25/18 06:00 Intake and Output: 10/26/18 10/26/18 06:59 18:59 Intake Total 1420 Output Total 1700 Balance -280 - Medications Medications: Current Medications Aspirin (Ecotrin) 81 mg PO DAILY [facility] Last Admin: 10/26/18 10:17 Dose: 81 mg Duloxetine HCl (Cymbalta) 60 mg PO DAILY [facility] Last Admin: 10/26/18 10:16 Dose: 60 mg Enoxaparin Sodium (Lovenox) 40 mg SC DAILY [facility]; Protocol Last Admin: 10/26/18 10:16 Dose: 40 mg Gabapentin (Neurontin) 800 mg PO TID [facility]; Protocol Last Admin: 10/26/18 10:16 Dose: 800 mg Ibuprofen (Motrin Tab) 600 mg PO Q6H PRN PRN Reason: Pain, moderate (4-7) Last Admin: 10/25/18 15:59 Dose: 600 mg Levalbuterol HCl (Xopenex) 0.63 mg IH [id number] PRN PRN Reason: Shortness of Breath Last Admin: 10/22/18 10:12 Dose: 0.63 mg Lorazepam (Ativan) 2 mg IVP Q2H PRN; Protocol PRN Reason: Seizure activity Lorazepam (Ativan) 2 mg IVP Q4H PRN; Protocol PRN Reason: Anxiety Montelukast Sodium (Singulair) 10 mg PO HS [facility] Last Admin: 10/25/18 23:00 Dose: 10 mg Ondansetron HCl (Zofran Inj) 4 mg IVP Q6H PRN PRN Reason: Nausea/Vomiting Last Admin: 10/26/18 12:39 Dose: 4 mg Pantoprazole Sodium (Protonix Ec Tab) 40 mg PO 0600 [facility] Last Admin: 10/26/18 06:11 Dose: 40 mg Polyethylene Glycol (Miralax) 17 gm PO BID [facility] Last Admin: 10/26/18 10:16 Dose: 17 gm Sennosides (Senokot Tab) 8.6 mg PO DAILY [facility] Last Admin: 10/26/18 10:17 Dose: 8.6 mg Topiramate (Topamax) 150 mg PO DAILY [facility]; Protocol Last Admin: 10/26/18 10:17 Dose: 150 mg - Labs Labs: 10/26/18 05:00 10/26/18 06:00 - Constitutional Appears: Non-toxic, No Acute Distress - Head Exam Head Exam: ATRAUMATIC, NORMAL INSPECTION, NORMOCEPHALIC - Eye Exam Eye Exam: EOMI, Normal appearance, PERRL - Respiratory Exam Respiratory Exam: Clear to Ausculation Bilateral, NORMAL BREATHING PATTERN. absent: Accessory Muscle Use, Rales, Rhonchi, Wheezes, Respiratory Distress, St ridor - Cardiovascular Exam Cardiovascular Exam: RRR, +S1, +S2. absent: Gallop, Rubs - GI/Abdominal Exam GI & Abdominal Exam: Soft, Normal Bowel Sounds, Tenderness (in epigastric region). absent: Firm, Guarding, - Extremities Exam Extremities Exam: Normal Capillary Refill, Normal Inspection - Back Exam Back Exam: NORMAL INSPECTION. absent: CVA tenderness (L), CVA tenderness (R) - Neurological Exam Neurological Exam: Alert, Awake, Oriented x 3 Additional comments: LLE weakness noted, chronic 2/2 old CVA. - Psychiatric Exam Psychiatric exam: Flat Affect - Skin Skin Exam: Dry, Normal Color, Warm Assessment and Plan - Assessment and Plan (Free Text) Assessment: Patient is a 48 year old female with past medical history of CVA with residual left sided weakness, epilepsy, fibromyalgia presenting s/p seizure episode, also complaining of chest pain. Plan: Seizure - CT head prelim read shows possible tiny petechial hemorrhage in left basal ganglia vs. artifact - Ativan PRN - for seizures - EEG - awaiting report - Seizure/aspiration precautions - Neurology consulted, rec appreciated - home Topamax 150 mg PO daily, Gabapentin 800 mg PO TID - Pt displaying signs of catatonia after PT work - Repeat CT head - Showed no interval change from previous study. Also showed - PT - recommend TCU - Due to medication change (holding topimax) will restart neurochecks q4 Transaminitis: - Suspected to be 2/2 medication induced - Continues to be uptrending - Will hold topimax at this time, as this medication thought to be leading to transaminitis - GI consulted, Dr. Martinez - Abd US showed hepatic steatosis without focal liver abnormality - Will discuss with Neuro, if related to any increase in medication Atypical chest pain - Troponin negx3 - ECHO from 09/2018 shows EF 60-65% - EKG - NSR HR @ 67 - TSH: 3.09 - ASA 81 mg PO daily - Oxygen NC - Cardiology consulted, recommended outpt follow up for cath Constipation: - Pt started on miralax - Pt now on senna - Pt had BM overnight - Cont to monitor Elevated d-dimer - V/Q scan (-) for PE PPX - Pepcid, Lovenox SC Case reviewed with Dr. Vanessa Cedeno PGY-1 <Jerry Mendez - Last Filed: 10/29/18 16:52> Objective - Vital Signs/Intake and Output Vital Signs (last 24 hours): Temp Pulse Resp BP Pulse Ox 98.3 F 80 20 95/65 L 96 10/29/18 14:00 10/29/18 14:00 10/29/18 14:00 10/29/18 14:00 10/29/18 14:00 Intake and Output: 10/29/18 10/29/18 06:59 18:59 Intake Total 540 Output Total 300 Balance 240 - Medications Medications: Current Medications Aspirin (Ecotrin) 81 mg PO DAILY [facility] Last Admin: 10/29/18 13:26 Dose: Not Given Duloxetine HCl (Cymbalta) 60 mg PO DAILY [facility] Last Admin: 10/28/18 09:37 Dose: 60 mg Enoxaparin Sodium (Lovenox) 40 mg SC DAILY [facility]; Protocol Last Admin: 10/29/18 13:26 Dose: Not Given Famotidine (Pepcid) 20 mg PO DAILY [facility] Last Admin: 10/29/18 13:27 Dose: Not Given Gabapentin (Neurontin) 1,200 mg PO TID [facility]; Protocol Last Admin: 10/29/18 15:24 Dose: 1,200 mg Sodium Chloride (Sodium Chloride 0.9%) 1,000 mls @ 100 mls/hr IV .Q10H [facility] Last Admin: 10/29/18 09:37 Dose: 100 mls/hr Ibuprofen (Motrin Tab) 600 mg PO Q6H PRN PRN Reason: Pain, moderate (4-7) Last Admin: 10/28/18 17:29 Dose: 600 mg Levalbuterol HCl (Xopenex) 0.63 mg IH [id number] PRN PRN Reason: Shortness of Breath Last Admin: 10/22/18 10:12 Dose: 0.63 mg Lidocaine (Lidoderm) 1 ea TD DAILY [facility] Last Admin: 10/29/18 15:25 Dose: 1 ea Lorazepam (Ativan) 2 mg IVP Q4H PRN; Protocol PRN Reason: Anxiety Last Admin: 10/26/18 15:20 Dose: 2 mg Montelukast Sodium (Singulair) 10 mg PO HS [facility] Last Admin: 10/27/18 21:16 Dose: 10 mg Ondansetron HCl (Zofran Inj) 4 mg IVP Q6H PRN PRN Reason: Nausea/Vomiting Last Admin: 10/27/18 15:28 Dose: 4 mg Pantoprazole Sodium (Protonix Ec Tab) 40 mg PO 0600 [facility] Last Admin: 10/28/18 05:16 Dose: 40 mg Polyethylene Glycol (Miralax) 17 gm PO BID [facility] Last Admin: 10/29/18 13:27 Dose: Not Given Sennosides (Senokot Tab) 8.6 mg PO DAILY [facility] Last Admin: 10/29/18 13:28 Dose: Not Given Topiramate (Topamax) 150 mg PO DAILY [facility]; Protocol Last Admin: 10/26/18 10:17 Dose: 150 mg - Labs Labs: 10/29/18 07:00 10/29/18 07:00 PT 12.5 SECONDS (9.4-12.5) 10/29/18 10:35 INR 1.11 10/29/18 10:35 APTT 36.9 Seconds (26.9-38.3) 10/29/18 10:35 Attending/Attestation - Attestation I have personally seen and examined this patient.: Yes I have fully participated in the care of the patient.: Yes I have reviewed all pertinent clinical information, including history, physical exam and plan: Yes Notes (Text): 10/29/18 16:52 Medical record note made by the resident after discussion with my direction and input after the patient was personally seen and examined by me. I have reviewed the chart and agree that the record accurately reflects by personal performance of the history, physical exam, data review, and medical decision-making, in the course for the patient. I have also personally directed the plan of care.
[2018-10-26 13:59] LABS: % IRON SATURATION 24 % (20-55); TOTAL IRON BINDING CAPACITY 367 ug/dL (265-497)
[2018-10-26] MEDS ORDERED: Gadodiamide 287 MG/ML VIAL (15ML) IV ONE (17:15)
[2018-10-26 17:32] LABS: HEPATITIS B SURFACE AG Negative (NEGATIVE)
--- NOTE | 2018-10-26 17:36 | MRI ---
Date of service: 10/26/2018 PROCEDURE: MRI BRAIN WITH AND WITHOUT CONTRAST HISTORY: Seizure COMPARISON: None available. TECHNIQUE: Multiplanar, multisequence MR images of the brain were obtained with and without intravenous contrast enhancement. 15 cc Omniscan was injected intravenously. FINDINGS: HEMORRHAGE: None DWI: No evidence of an acute or early subacute infarction. BRAIN PARENCHYMA: There are few small T2/FLAIR hyperintense foci in bifrontal subcortical supratentorial white matter. There is no mass, mass effect or abnormal extra-axial fluid collection. There is no territorial infarction. There is a partially empty sella. Otherwise, the midline sagittal structures are normal. ENHANCEMENT: No abnormal intracranial enhancement. VENTRICLES: The ventricles are normal in size, shape and configuration. CRANIUM: There is normal bone marrow signal pattern. ORBITS: Grossly unremarkable. PARANASAL SINUSES/MASTOIDS: Predominantly clear. VASCULAR SYSTEM: There are normal signal voids in the larger intracranial arteries. OTHER FINDINGS: None . IMPRESSION: No acute intracranial abnormality. Mild bifrontal subcortical supratentorial white matter changes are strictly nonspecific. The differential considerations include migraine headache effect, gliosis, early chronic microangiopathic changes, vasculitis, Lyme disease and demyelinating disease including multiple sclerosis. Clinical follow-up is advised.
[2018-10-26 17:38] LABS: HEPATITIS A IGM NEGATIVE (NEGATIVE); HEPATITIS B CORE AB NEGATIVE (NEGATIVE)
[2018-10-26 17:50] LABS: HEPATITIS C ANTIBODY NEGATIVE (NEGATIVE)
[2018-10-27] MEDS: Pantoprazole 40 mg EC Tab PO SCH (05:19)
[2018-10-27 06:35] LABS: BASO # 0.01 K/mm3 (0.0-2.0); BASO % 0.2 % (0.0-3.0); EOS # 0.2 (0.0-0.7); EOS % 3.7 % (1.5-5.0); LYMPH # 1.4 (1.2-3.4); LYMPH % 33.6 % (22.0-35.0); MEAN CELL VOLUME 85.4 fl (80.0-105.0); MEAN CORPUSCULAR HEMOGLOBIN 26.5 pg (25.0-35.0); MEAN CORPUSCULAR HGB CONC 31.1 g/dl (31.0-37.0); MONO # 0.3 (0.1-0.6); MONO % 6.5 % (1.0-6.0); RBC 4.52 10^6/uL (3.5-6.1)
[2018-10-27 06:52] LABS: ALB/GLOB RATIO 1.2 (1.1-1.8); ALBUMIN 4.3 g/dL (3.0-4.8); ALT/SGPT 434 U/L (7-56); AST/SGOT 534 U/L (14-36); BLOOD UREA NITROGEN 22 mg/dL (7-21); CALCIUM 9.6 mg/dL (8.4-10.5); GFR NON-AFRICAN AMERICAN > 60
[2018-10-27] MEDS: Enoxaparin 40 mg Syringe SC SCH (09:48)
[2018-10-27] MEDS: POLYETHYLENE GLYCOL 3350 17 GM/Dose PACKET PO SCH ×2 (09:49→17:44)
[2018-10-27 11:06] LABS: INR 1.2; PROTHROMBIN TIME 13.6 SECONDS (9.4-12.5)
--- NOTE | 2018-10-27 12:12 | CP.PCM.PN ---
<Ruben Cedeno - Last Filed: 10/27/18 13:05> Subjective - Date & Time of Evaluation Date of Evaluation: 10/27/18 Time of Evaluation: 13:05 - Subjective Subjective: Ruben Cedeno, PGY1 Medicine Progress Note: Pt was seen and examined at bedside in the AM. Pt states that she had a BM early in the AM and had no other acute events. She had MRI brain done yesterday per neurology. Pt states that she still feels no headache, fevers, chills, SOB, cough, chest pain, palpitations, n/v, d or dysuria. No other acute complaints at this time. PT is recommending TCU for the pt. Objective - Vital Signs/Intake and Output Vital Signs (last 24 hours): Temp Pulse Resp BP Pulse Ox 98.2 F 74 18 95/68 L 98 10/27/18 06:00 10/27/18 06:00 10/27/18 06:00 10/27/18 06:00 10/27/18 06:00 Intake and Output: 10/27/18 10/27/18 06:59 18:59 Intake Total 180 Balance 180 - Medications Medications: Current Medications Aspirin (Ecotrin) 81 mg PO DAILY [facility] Last Admin: 10/27/18 09:48 Dose: 81 mg Duloxetine HCl (Cymbalta) 60 mg PO DAILY [facility] Last Admin: 10/27/18 09:48 Dose: 60 mg Enoxaparin Sodium (Lovenox) 40 mg SC DAILY [facility]; Protocol Last Admin: 10/27/18 09:48 Dose: 40 mg Gabapentin (Neurontin) 1,200 mg PO TID [facility]; Protocol Last Admin: 10/27/18 09:49 Dose: 1,200 mg Ibuprofen (Motrin Tab) 600 mg PO Q6H PRN PRN Reason: Pain, moderate (4-7) Last Admin: 10/25/18 15:59 Dose: 600 mg Levalbuterol HCl (Xopenex) 0.63 mg IH [id number] PRN PRN Reason: Shortness of Breath Last Admin: 10/22/18 10:12 Dose: 0.63 mg Lorazepam (Ativan) 2 mg IVP Q4H PRN; Protocol PRN Reason: Anxiety Last Admin: 10/26/18 15:20 Dose: 2 mg Montelukast Sodium (Singulair) 10 mg PO HS [facility] Last Admin: 10/26/18 21:21 Dose: 10 mg Ondansetron HCl (Zofran Inj) 4 mg IVP Q6H PRN PRN Reason: Nausea/Vomiting Last Admin: 10/26/18 12:39 Dose: 4 mg Pantoprazole Sodium (Protonix Ec Tab) 40 mg PO 0600 [facility] Last Admin: 10/27/18 05:19 Dose: Not Given Polyethylene Glycol (Miralax) 17 gm PO BID [facility] Last Admin: 10/27/18 09:49 Dose: 17 gm Sennosides (Senokot Tab) 8.6 mg PO DAILY [facility] Last Admin: 10/27/18 09:49 Dose: 8.6 mg Topiramate (Topamax) 150 mg PO DAILY [facility]; Protocol Last Admin: 10/26/18 10:17 Dose: 150 mg - Labs Labs: 10/27/18 06:00 10/27/18 06:00 PT 13.6 SECONDS (9.4-12.5) H 10/27/18 10:40 INR 1.20 10/27/18 10:40 - Constitutional Appears: Non-toxic, No Acute Distress - Head Exam Head Exam: ATRAUMATIC, NORMAL INSPECTION, NORMOCEPHALIC - Eye Exam Eye Exam: EOMI, Normal appearance, PERRL - Respiratory Exam Respiratory Exam: Clear to Ausculation Bilateral, NORMAL BREATHING PATTERN. absent: Accessory Muscle Use, Rales, Rhonchi, Wheezes, Respiratory Distress, Stridor - Cardiovascular Exam Cardiovascular Exam: RRR, +S1, +S2. absent: Gallop, Rubs - GI/Abdominal Exam GI & Abdominal Exam: Soft, Normal Bowel Sounds. absent: Firm, Guarding, Tenderness - Extremities Exam Extremities Exam: Normal Capillary Refill, Normal Inspection - Back Exam Back Exam: NORMAL INSPECTION. absent: CVA tenderness (L), CVA tenderness (R) - Neurological Exam Neurological Exam: Alert, Awake, Oriented x 3 Additional comments: LLE weakness noted, chronic 2/2 old CVA. - Psychiatric Exam Psychiatric exam: Flat Affect - Skin Skin Exam: Dry, Normal Color, Warm Assessment and Plan - Assessment and Plan (Free Text) Assessment: Patient is a 48 year old female with past medical history of CVA with residual left sided weakness, epilepsy, fibromyalgia presenting s/p seizure episode, also complaining of chest pain. Plan: Seizure - CT head prelim read shows possible tiny petechial hemorrhage in left basal ganglia vs. artifact - Ativan PRN - for seizures - EEG - awaiting report - Seizure/aspiration precautions - Neurology consulted, rec appreciated - home Topamax 150 mg PO daily - Increased Gabapentin to 1200 TID - Repeat CT head - Showed no interval change from previous study. - MRI Brain: Showed no acute abnormalities - PT - recommend TCU - Due to medication change (holding topimax) will restart neurochecks q4 Transaminitis: - Suspected to be 2/2 medication induced - Continues to be uptrending - Topimax on hold, as this medication thought to be leading to transaminitis - Abd US showed hepatic steatosis without focal liver abnormality - Will discuss with Neuro, if related to any increase in medication - GI consulted, Dr. Martinez, recs appreciated Atypical chest pain - Troponin negx3 - ECHO from 09/2018 shows EF 60-65% - EKG - NSR HR @ 67 - TSH: 3.09 - ASA 81 mg PO daily - Oxygen NC - Cardiology consulted, recommended outpt follow up for cath Constipation: - Pt started on miralax - Pt now on senna - Pt had BM this AM - Cont to monitor Elevated d-dimer - V/Q scan (-) for PE PPX - Pepcid, Lovenox SC Case reviewed with Dr. Vanessa Cedeno PGY-1 <Jerry Mendez - Last Filed: 10/29/18 16:51> Objective - Vital Signs/Intake and Output Vital Signs (last 24 hours): Temp Pulse Resp BP Pulse Ox 98.3 F 80 20 95/65 L 96 10/29/18 14:00 10/29/18 14:00 10/29/18 14:00 10/29/18 14:00 10/29/18 14:00 Intake and Output: 10/29/18 10/29/18 06:59 18:59 Intake Total 540 Output Total 300 Balance 240 - Medications Medications: Current Medications Aspirin (Ecotrin) 81 mg PO DAILY [facility] Last Admin: 10/29/18 13:26 Dose: Not Given Duloxetine HCl (Cymbalta) 60 mg PO DAILY [facility] Last Admin: 10/28/18 09:37 Dose: 60 mg Enoxaparin Sodium (Lovenox) 40 mg SC DAILY [facility]; Protocol Last Admin: 10/29/18 13:26 Dose: Not Given Famotidine (Pepcid) 20 mg PO DAILY [facility] Last Admin: 10/29/18 13:27 Dose: Not Given Gabapentin (Neurontin) 1,200 mg PO TID [facility]; Protocol Last Admin: 10/29/18 15:24 Dose: 1,200 mg Sodium Chloride (Sodium Chloride 0.9%) 1,000 mls @ 100 mls/hr IV .Q10H [facility] Last Admin: 10/29/18 09:37 Dose: 100 mls/hr Ibuprofen (Motrin Tab) 600 mg PO Q6H PRN PRN Reason: Pain, moderate (4-7) Last Admin: 10/28/18 17:29 Dose: 600 mg Levalbuterol HCl (Xopenex) 0.63 mg IH [id number] PRN PRN Reason: Shortness of Breath Last Admin: 10/22/18 10:12 Dose: 0.63 mg Lidocaine (Lidoderm) 1 ea TD DAILY [facility] Last Admin: 10/29/18 15:25 Dose: 1 ea Lorazepam (Ativan) 2 mg IVP Q4H PRN; Protocol PRN Reason: Anxiety Last Admin: 10/26/18 15:20 Dose: 2 mg Montelukast Sodium (Singulair) 10 mg PO HS [facility] Last Admin: 10/27/18 21:16 Dose: 10 mg Ondansetron HCl (Zofran Inj) 4 mg IVP Q6H PRN PRN Reason: Nausea/Vomiting Last Admin: 10/27/18 15:28 Dose: 4 mg Pantoprazole Sodium (Protonix Ec Tab) 40 mg PO 0600 [facility] Last Admin: 10/28/18 05:16 Dose: 40 mg Polyethylene Glycol (Miralax) 17 gm PO BID [facility] Last Admin: 10/29/18 13:27 Dose: Not Given Sennosides (Senokot Tab) 8.6 mg PO DAILY [facility] Last Admin: 10/29/18 13:28 Dose: Not Given Topiramate (Topamax) 150 mg PO DAILY [facility]; Protocol Last Admin: 10/26/18 10:17 Dose: 150 mg - Labs Labs: 10/29/18 07:00 10/29/18 07:00 PT 12.5 SECONDS (9.4-12.5) 10/29/18 10:35 INR 1.11 10/29/18 10:35 APTT 36.9 Seconds (26.9-38.3) 10/29/18 10:35 Attending/Attestation - Attestation I have personally seen and examined this patient.: Yes I have fully participated in the care of the patient.: Yes I have reviewed all pertinent clinical information, including history, physical exam and plan: Yes Notes (Text): Medical record note made by the resident after discussion with my direction and input after the patient was personally seen and examined by me. I have reviewed the chart and agree that the record accurately reflects by personal performance of the history, physical exam, data review, and medical decision-making, in the course for the patient. I have also personally directed the plan of care.
--- NOTE | 2018-10-27 12:20 | CP.PCM.PN ---
Subjective - Date & Time of Evaluation Date of Evaluation: 10/27/18 Time of Evaluation: 06:00 - Subjective Subjective: Patient seen and evaluated bedside. No acute issues overnight. Patient states she feels better denies any seizures, headaches, numbness, tingling, change in vision. Objective - Vital Signs/Intake and Output Vital Signs (last 24 hours): Temp Pulse Resp BP Pulse Ox 98.2 F 74 18 95/68 L 98 10/27/18 06:00 10/27/18 06:00 10/27/18 06:00 10/27/18 06:00 10/27/18 06:00 Intake and Output: 10/27/18 10/27/18 06:59 18:59 Intake Total 180 Balance 180 - Medications Medications: Current Medications Aspirin (Ecotrin) 81 mg PO DAILY [facility] Last Admin: 10/27/18 09:48 Dose: 81 mg Duloxetine HCl (Cymbalta) 60 mg PO DAILY [facility] Last Admin: 10/27/18 09:48 Dose: 60 mg Enoxaparin Sodium (Lovenox) 40 mg SC DAILY [facility]; Protocol Last Admin: 10/27/18 09:48 Dose: 40 mg Gabapentin (Neurontin) 1,200 mg PO TID [facility]; Protocol Last Admin: 10/27/18 09:49 Dose: 1,200 mg Ibuprofen (Motrin Tab) 600 mg PO Q6H PRN PRN Reason: Pain, moderate (4-7) Last Admin: 10/25/18 15:59 Dose: 600 mg Levalbuterol HCl (Xopenex) 0.63 mg IH [id number] PRN PRN Reason: Shortness of Breath Last Admin: 10/22/18 10:12 Dose: 0.63 mg Lorazepam (Ativan) 2 mg IVP Q4H PRN; Protocol PRN Reason: Anxiety Last Admin: 10/26/18 15:20 Dose: 2 mg Montelukast Sodium (Singulair) 10 mg PO HS [facility] Last Admin: 10/26/18 21:21 Dose: 10 mg Ondansetron HCl (Zofran Inj) 4 mg IVP Q6H PRN PRN Reason: Nausea/Vomiting Last Admin: 10/26/18 12:39 Dose: 4 mg Pantoprazole Sodium (Protonix Ec Tab) 40 mg PO 0600 [facility] Last Admin: 10/27/18 05:19 Dose: Not Given Polyethylene Glycol (Miralax) 17 gm PO BID [facility] Last Admin: 10/27/18 09:49 Dose: 17 gm Sennosides (Senokot Tab) 8.6 mg PO DAILY [facility] Last Admin: 10/27/18 09:49 Dose: 8.6 mg Topiramate (Topamax) 150 mg PO DAILY [facility]; Protocol Last Admin: 10/26/18 10:17 Dose: 150 mg - Labs Labs: 10/27/18 06:00 10/27/18 06:00 PT 13.6 SECONDS (9.4-12.5) H 10/27/18 10:40 INR 1.20 10/27/18 10:40 - Constitutional Appears: Non-toxic, No Acute Distress - Head Exam Head Exam: ATRAUMATIC, NORMAL INSPECTION, NORMOCEPHALIC - Eye Exam Eye Exam: EOMI, Normal appearance - Respiratory Exam Respiratory Exam: Clear to Ausculation Bilateral - Cardiovascular Exam Cardiovascular Exam: REGULAR RHYTHM - Neurological Exam Neurological Exam: Alert, Awake, Oriented x3 Assessment and Plan - Assessment and Plan (Free Text) Plan: Seizure like activity - patient likely does not have seizure disorder underlying - CT intial reviewed no acute changes - Ativan PRN - EEG was negative - continue neurontin 1200 TID - no need for seizure prophylxis at this time - will continue to monitor - follow up outpatient for possible VEEG in future
--- NOTE | 2018-10-27 12:43 | CP.PCM.CON ---
<FlodaniavirginiaDevon - Last Filed: 10/27/18 16:52> History of Present Illness - History of Present Illness History of Present Illness: GI fellow PGY 4, consult note Susie Graves is a very pleasant 48-year-old female who presented with epilepsy. GI was consulted for elevated liver tests. AST and ALT have gone from relatively normal to over 500, mostly hepatocellular pattern. Bilirubin and alk phos have been normal. At this time, patient is feeling well and at her baseline. She has no confusion, jaundice, bleeding, abdominal pain. She states that her liver numbers have been elevated before especially when she is "sick". She has been told she has a fatty liver and has had an extensive workup but has not been told any new information. She is from [place] and has no primary GI doctor at this time. She has seen GI in the past for gastric sleeve and hiatal hernia. She denies significant alcohol intake, exposure to hepatitis. She does admit that her family has a history of alcoholism, cirrhosis, liver cancer. Past medical historyCVA, epilepsy, obesity, large fibroids Past surgical historygastric sleeve 2009, cholecystectomy, hiatal hernia repair, total hysterectomy 1 month ago. denies previous colonoscopy. Home medicationsomeprazole, Topamax, gabapentin, Cymbalta Family historycirrhosis, liver cancer Social historydenies significant alcohol use, denies smoking, daughter participates significantly. 12 point review of systems negative except for as above. Past Patient History - Past Social History Smoking Status: Never Smoked - CARDIAC Hx Cardiac Disorders: No - PULMONARY Hx Respiratory Disorders: No - NEUROLOGICAL Hx Neurological Disorder: Yes HX Cerebrovascular Accident: Yes (2005) Hx Seizures: Yes - HEMATOLOGICAL/ONCOLOGICAL Hx Anemia: Yes - MUSCULOSKELETAL/RHEUMATOLOGICAL Other/Comment: Neuropathy - GASTROINTESTINAL Hx Gastrointestinal Disorders: No - GENITOURINARY/GYNECOLOGICAL Hx Genitourinary Disorders: No - PSYCHIATRIC Hx Psychophysiologic Disorder: No Hx Substance Use: No - SURGICAL HISTORY Hx Surgeries: Yes Meds Allergies/Adverse Reactions: Allergies Allergy/AdvReac Type Severity Reaction Status Date / Time iodine Allergy ANAPHYLAXIS Verified 10/21/18 22:54 morphine Allergy NAUSEA Verified 10/21/18 22:54 tramadol Allergy ITCHING Verified 10/21/18 22:54 - Medications Medications: Current Medications Aspirin (Ecotrin) 81 mg PO DAILY [facility] Last Admin: 10/27/18 09:48 Dose: 81 mg Duloxetine HCl (Cymbalta) 60 mg PO DAILY [facility] Last Admin: 10/27/18 09:48 Dose: 60 mg Enoxaparin Sodium (Lovenox) 40 mg SC DAILY [facility]; Protocol Last Admin: 10/27/18 09:48 Dose: 40 mg Gabapentin (Neurontin) 1,200 mg PO TID [facility]; Protocol Last Admin: 10/27/18 09:49 Dose: 1,200 mg Ibuprofen (Motrin Tab) 600 mg PO Q6H PRN PRN Reason: Pain, moderate (4-7) Last Admin: 10/25/18 15:59 Dose: 600 mg Levalbuterol HCl (Xopenex) 0.63 mg IH [id number] PRN PRN Reason: Shortness of Breath Last Admin: 10/22/18 10:12 Dose: 0.63 mg Lorazepam (Ativan) 2 mg IVP Q4H PRN; Protocol PRN Reason: Anxiety Last Admin: 10/26/18 15:20 Dose: 2 mg Montelukast Sodium (Singulair) 10 mg PO HS [facility] Last Admin: 10/26/18 21:21 Dose: 10 mg Ondansetron HCl (Zofran Inj) 4 mg IVP Q6H PRN PRN Reason: Nausea/Vomiting Last Admin: 10/26/18 12:39 Dose: 4 mg Pantoprazole Sodium (Protonix Ec Tab) 40 mg PO 0600 [facility] Last Admin: 10/27/18 05:19 Dose: Not Given Polyethylene Glycol (Miralax) 17 gm PO BID [facility] Last Admin: 10/27/18 09:49 Dose: 17 gm Sennosides (Senokot Tab) 8.6 mg PO DAILY [facility] Last Admin: 10/27/18 09:49 Dose: 8.6 mg Topiramate (Topamax) 150 mg PO DAILY [facility]; Protocol Last Admin: 10/26/18 10:17 Dose: 150 mg Physical Exam - Constitutional Appears: Non-toxic, No Acute Distress - Head Exam Head Exam: ATRAUMATIC, NORMAL INSPECTION - Eye Exam Eye Exam: EOMI, Normal appearance - ENT Exam ENT Exam: Mucous Membranes Moist, Normal Exam - Respiratory Exam Respiratory Exam: Clear to Auscultation Bilateral, NORMAL BREATHING PATTERN - Cardiovascular Exam Cardiovascular Exam: REGULAR RHYTHM, +S1, +S2 - GI/Abdominal Exam GI & Abdominal Exam: Normal Bowel Sounds, Soft. absent: Organomegaly, Tenderness - Extremities Exam Extremities exam: Positive for: normal inspection. Negative for: pedal edema - Neurological Exam Neurological exam: Alert, CN II-XII Intact, Oriented x3 - Psychiatric Exam Psychiatric exam: Normal Affect, Normal Mood - Skin Skin Exam: Normal Color, Warm Results - Vital Signs Recent Vital Signs: Last Vital Signs Temp 98.2 F 10/27/18 06:00 Pulse 74 10/27/18 06:00 Resp 18 10/27/18 06:00 BP 95/68 L 10/27/18 06:00 Pulse Ox 98 10/27/18 06:00 - Labs Result Diagrams: 10/27/18 06:00 10/27/18 06:00 Labs: Laboratory Results - last 24 hr 10/26/18 10/26/18 10/26/18 11:00 11:00 11:00 WBC RBC Hgb Hct MCV MCH MCHC RDW Plt Count MPV Neut % (Auto) Lymph % (Auto) Andrew % (Auto) Eos % (Auto) Baso % (Auto) Lymph # (Auto) Andrew # (Auto) Eos # (Auto) Baso # (Auto) Absolute Neuts (auto) PT INR Sodium Potassium Chloride Carbon Dioxide Anion Gap BUN Creatinine Est GFR ( Amer) Est GFR (Non-Af Amer) Random Glucose Calcium Iron 87 TIBC 367 % Saturation 24 Ferritin 68.4 Total Bilirubin AST ALT Alkaline Phosphatase Total Creatine Kinase Total Protein Albumin Globulin Albumin/Globulin Ratio TSH 3rd Generation Hepatitis A IgM Ab Negative Hep Bs Antigen Negative Hep B Core IgM Ab Negative Hepatitis C Antibody Negative 10/26/18 10/27/18 10/27/18 11:00 06:00 06:00 WBC 4.0 L D RBC 4.52 Hgb 12.0 Hct 38.6 MCV 85.4 MCH 26.5 MCHC 31.1 RDW 23.0 H Plt Count 262 MPV 12.0 H Neut % (Auto) 56.0 Lymph % (Auto) 33.6 Andrew % (Auto) 6.5 H Eos % (Auto) 3.7 Baso % (Auto) 0.2 Lymph # (Auto) 1.4 Andrew # (Auto) 0.3 Eos # (Auto) 0.2 Baso # (Auto) 0.01 Absolute Neuts (auto) 2.25 PT INR Sodium 141 Potassium 4.2 Chloride 103 Carbon Dioxide 26 Anion Gap 16 BUN 22 H Creatinine 0.9 Est GFR ( Amer) > 60 Est GFR (Non-Af Amer) > 60 Random Glucose 96 Calcium 9.6 Iron TIBC % Saturation Ferritin Total Bilirubin 0.3 AST 534 H D ALT 434 H Alkaline Phosphatase 128 H D Total Creatine Kinase Total Protein 7.8 Albumin 4.3 Globulin 3.6 Albumin/Globulin Ratio 1.2 TSH 3rd Generation 3.51 Hepatitis A IgM Ab Hep Bs Antigen Hep B Core IgM Ab Hepatitis C Antibody 10/27/18 10/27/18 10:40 10:40 WBC RBC Hgb Hct MCV MCH MCHC RDW Plt Count MPV Neut % (Auto) Lymph % (Auto) Andrew % (Auto) Eos % (Auto) Baso % (Auto) Lymph # (Auto) Andrew # (Auto) Eos # (Auto) Baso # (Auto) Absolute Neuts (auto) PT 13.6 H INR 1.20 Sodium Potassium Chloride Carbon Dioxide Anion Gap BUN Creatinine Est GFR ( Amer) Est GFR (Non-Af Amer) Random Glucose Calcium Iron TIBC % Saturation Ferritin Total Bilirubin AST ALT Alkaline Phosphatase Total Creatine Kinase 122 Total Protein Albumin Globulin Albumin/Globulin Ratio TSH 3rd Generation Hepatitis A IgM Ab Hep Bs Antigen Hep B Core IgM Ab Hepatitis C Antibody Assessment & Plan - Assessment and Plan (Free Text) Assessment: #elevated liver tests #NAFLD #Seizure disorder #Gastric sleeve 2009 #Hiatal hernia repair Plan: No signs or symptoms of acute liver failure. ultrasound reviewedfatty liver, CBD 8.3, good hepatopedal blood flow this may be reactive to seizures/antiepileptic medications insetting of NAFLD, ?KELLOGG. Workup for other sources of liver disease with significant family history pending. Follow-up [facility], RPR, EBV, HSV, Alpha-1 etc. w/u -Autoimmune, iron w/u negative -U/S duplex to r/o thrombosis PENDING May consider liver biopsy in-house if no improvement and workup negative. Case discussed with Dr. Martinez, see attestation - Date & Time Date: 10/27/18 Time: 12:44 <Tonny Martinez - Last Filed: 10/27/18 17:20> Meds - Medications Medications: Current Medications Aspirin (Ecotrin) 81 mg PO DAILY [facility] Last Admin: 10/27/18 09:48 Dose: 81 mg Duloxetine HCl (Cymbalta) 60 mg PO DAILY [facility] Last Admin: 10/27/18 09:48 Dose: 60 mg Enoxaparin Sodium (Lovenox) 40 mg SC DAILY [facility]; Protocol Last Admin: 10/27/18 09:48 Dose: 40 mg Gabapentin (Neurontin) 1,200 mg PO TID [facility]; Protocol Ibuprofen (Motrin Tab) 600 mg PO Q6H PRN PRN Reason: Pain, moderate (4-7) Last Admin: 10/27/18 14:32 Dose: 600 mg Levalbuterol HCl (Xopenex) 0.63 mg IH [id number] PRN PRN Reason: Shortness of Breath Last Admin: 10/22/18 10:12 Dose: 0.63 mg Lorazepam (Ativan) 2 mg IVP Q4H PRN; Protocol PRN Reason: Anxiety Last Admin: 10/26/18 15:20 Dose: 2 mg Montelukast Sodium (Singulair) 10 mg PO HS [facility] Last Admin: 10/26/18 21:21 Dose: 10 mg Ondansetron HCl (Zofran Inj) 4 mg IVP Q6H PRN PRN Reason: Nausea/Vomiting Last Admin: 10/27/18 15:28 Dose: 4 mg Pantoprazole Sodium (Protonix Ec Tab) 40 mg PO 0600 [facility] Last Admin: 10/27/18 05:19 Dose: Not Given Polyethylene Glycol (Miralax) 17 gm PO BID [facility] Last Admin: 10/27/18 09:49 Dose: 17 gm Sennosides (Senokot Tab) 8.6 mg PO DAILY [facility] Last Admin: 10/27/18 09:49 Dose: 8.6 mg Topiramate (Topamax) 150 mg PO DAILY [facility]; Protocol Last Admin: 10/26/18 10:17 Dose: 150 mg Results - Vital Signs Recent Vital Signs: Last Vital Signs Temp 98.2 F 10/27/18 06:00 Pulse 74 10/27/18 06:00 Resp 18 10/27/18 06:00 BP 95/68 L 10/27/18 06:00 Pulse Ox 98 10/27/18 06:00 - Labs Result Diagrams: 10/27/18 06:00 10/27/18 06:00 Labs: Laboratory Results - last 24 hr 10/26/18 10/26/18 10/26/18 11:00 11:00 13:45 WBC RBC Hgb Hct MCV MCH MCHC RDW Plt Count MPV Neut % (Auto) Lymph % (Auto) Andrew % (Auto) Eos % (Auto) Baso % (Auto) Lymph # (Auto) Andrew # (Auto) Eos # (Auto) Baso # (Auto) Absolute Neuts (auto) PT INR Sodium Potassium Chloride Carbon Dioxide Anion Gap BUN Creatinine Est GFR ( Amer) Est GFR (Non-Af Amer) Random Glucose Calcium Ferritin 68.4 Total Bilirubin AST ALT Alkaline Phosphatase Total Creatine Kinase Total Protein Albumin Globulin Albumin/Globulin Ratio IgG PAPITO Screen Negative Anti-Mitochondrial Ab Negative Anti-Smooth Muscle Ab Negative Hepatitis A IgM Ab Negative Hep Bs Antigen Negative Hep B Core IgM Ab Negative Hepatitis C Antibody Negative 10/27/18 10/27/18 10/27/18 06:00 06:00 10:40 WBC 4.0 L D RBC 4.52 Hgb 12.0 Hct 38.6 MCV 85.4 MCH 26.5 MCHC 31.1 RDW 23.0 H Plt Count 262 MPV 12.0 H Neut % (Auto) 56.0 Lymph % (Auto) 33.6 Andrew % (Auto) 6.5 H Eos % (Auto) 3.7 Baso % (Auto) 0.2 Lymph # (Auto) 1.4 Andrew # (Auto) 0.3 Eos # (Auto) 0.2 Baso # (Auto) 0.01 Absolute Neuts (auto) 2.25 PT 13.6 H INR 1.20 Sodium 141 Potassium 4.2 Chloride 103 Carbon Dioxide 26 Anion Gap 16 BUN 22 H Creatinine 0.9 Est GFR ( Amer) > 60 Est GFR (Non-Af Amer) > 60 Random Glucose 96 Calcium 9.6 Ferritin Total Bilirubin 0.3 AST 534 H D ALT 434 H Alkaline Phosphatase 128 H D Total Creatine Kinase Total Protein 7.8 Albumin 4.3 Globulin 3.6 Albumin/Globulin Ratio 1.2 IgG PAPITO Screen Anti-Mitochondrial Ab Anti-Smooth Muscle Ab Hepatitis A IgM Ab Hep Bs Antigen Hep B Core IgM Ab Hepatitis C Antibody 10/27/18 10/27/18 10:40 11:30 WBC RBC Hgb Hct MCV MCH MCHC RDW Plt Count MPV Neut % (Auto) Lymph % (Auto) Andrew % (Auto) Eos % (Auto) Baso % (Auto) Lymph # (Auto) Andrew # (Auto) Eos # (Auto) Baso # (Auto) Absolute Neuts (auto) PT INR Sodium Potassium Chloride Carbon Dioxide Anion Gap BUN Creatinine Est GFR ( Amer) Est GFR (Non-Af Amer) Random Glucose Calcium Ferritin Total Bilirubin AST ALT Alkaline Phosphatase Total Creatine Kinase 122 Total Protein Albumin Globulin Albumin/Globulin Ratio IgG 806.7 PAPITO Screen Anti-Mitochondrial Ab Anti-Smooth Muscle Ab Hepatitis A IgM Ab Hep Bs Antigen Hep B Core IgM Ab Hepatitis C Antibody Attending/Attestation - Attestation I have fully participated in the care of the patient.: Yes I have reviewed all pertinent clinical information: Yes Notes (Text): 10/27/18 17:17 Epilepsy Obesity s/p sleeve gastrectomy Transaminitis Abdominal US reviewed by me showing fatty liver, no hepatic lesions - Diet as tolerated - Obtain abdominal US with duplex for PV/HV patency evaluation - Autoimmune and viral hepatitis panel, iron studies all negative. Obtain additional testing including [id number], EBV, HSV, RPR - Continue to monitor LFTs and avoid hepatotoxic therapies - If LFTs are persistently elevated and workup remains negative, would consider liver biopsy - Will continue to monitor patient clinical course
[2018-10-27 17:39] LABS: FOLATE 5.4 ng/mL
--- NOTE | 2018-10-27 19:01 | PN ---
DATE: 09/29/2018 SUBJECTIVE: The patient was seen today for followup. The patient presented well. The patient denied that she is depressed. Denied any thoughts of harming herself or others. The patient reported that she is planning to follow up with outpatient providers. The patient reported that she tolerates current medications well, denied any side effects. The patient denied any voices, denied paranoid ideation. The patient participates in unit activities. No agitation or aggression. PHYSICAL EXAMINATION VITAL SIGNS: Stable. LABORATORY DATA: Labs reviewed. Most recent was from today. Coagulation reviewed. Chemistry reviewed. AST and ALT is climbing up. Immunology reviewed. Urinalysis reviewed. MEDICATIONS: Reviewed. From the psychiatric standpoint, the patient is on Cymbalta 60 mg daily, Neurontin, also Ativan as needed, Topamax 150 mg daily. MENTAL STATUS EXAM: The patient presented to be alert and oriented, pleasant, cooperative, intermittent eye contact. Speech was normal rate, tone, quality and quantity. Mood described as "I feel better. Affect was reactive and mood congruent. Thought process coherent and goal directed. Thought content, the patient denied visual, auditory or tactile hallucinations. Denied paranoid ideation. The patient denied thoughts of harming herself or others. Denied intent or plan. Insight and judgment seems to be improving. Impulses are well controlled. IMPRESSION: As per history, the patient has bipolar disorder. PLAN: Continue current medication, current management. This proposal lead writer provided the patient with information about outpatient psychiatrist including [facility], [facility] as well as Dr. Oliver Navarro as well as [facility]. The patient posed no imminent danger to self or others. This proposal lead writer will sign off. Should you have any questions give me a call back. Ada Eddy MD
[2018-10-28] MEDS: Pantoprazole 40 mg EC Tab PO SCH (05:16)
[2018-10-28 06:19] LABS: CERULOPLASMIN 32 mg/dL (18-53)
[2018-10-28 08:13] LABS: BASO # 0.02 K/mm3 (0.0-2.0); BASO % 0.4 % (0.0-3.0); EOS # 0.2 (0.0-0.7); EOS % 3.2 % (1.5-5.0); HEMOGLOBIN 11.6 g/dL (12.0-16.0); LYMPH # 1.4 (1.2-3.4); LYMPH % 23.6 % (22.0-35.0); MEAN CORPUSCULAR HEMOGLOBIN 26.5 pg (25.0-35.0); MEAN CORPUSCULAR HGB CONC 31.6 g/dl (31.0-37.0); MONO # 0.4 (0.1-0.6); MONO % 6.3 % (1.0-6.0); RBC 4.37 10^6/uL (3.5-6.1); RED CELL DISTRIBUTION WIDTH 23.3 % (11.5-14.5); WHITE BLOOD COUNT 5.7 10^3/uL (4.5-11.0)
[2018-10-28 08:33] LABS: ALB/GLOB RATIO 1.3 (1.1-1.8); ALBUMIN 4.4 g/dL (3.0-4.8); ALT/SGPT 601 U/L (7-56); AST/SGOT 585 U/L (14-36); BLOOD UREA NITROGEN 21 mg/dL (7-21); CALCIUM 9.6 mg/dL (8.4-10.5); GFR NON-AFRICAN AMERICAN > 60
--- NOTE | 2018-10-28 09:31 | US ---
PROCEDURE: Portal vein duplex ultrasound. CLINICAL HISTORY: Cirrhosis. Deteriorating liver function. Evaluate for portal vein thrombosis. PHYSICIAN(S): Mina David M.D. FINDINGS: The exam is limited by body habitus and bowel gas The extrahepatic portal vein is patent with hepatopetal flow. No sonographic evidence for thrombus or obstruction is seen. The 3 hepatic veins are visualized centrally and patent. The hepatic artery is patent. The spleen is borderline enlarged. No ascites is appreciated in the upper abdomen IMPRESSION: 1. Patent portal vein with hepatopetal flow.
[2018-10-28] MEDS: Enoxaparin 40 mg Syringe SC SCH (09:36)
[2018-10-28] MEDS: POLYETHYLENE GLYCOL 3350 17 GM/Dose PACKET PO SCH ×2 (09:37→17:28)
--- NOTE | 2018-10-28 13:35 | CP.PCM.PN ---
<FlodaniavirginiaDevon - Last Filed: 10/28/18 13:31> Subjective - Date & Time of Evaluation Date of Evaluation: 10/28/18 Time of Evaluation: 13:31 - Subjective Subjective: Patient had large brown BM today. Tolerating diet. She does complain of some abdominal pain after the U/S, but otherwise doing ok. 5pt ROS completed and negative except for above. Objective - Vital Signs/Intake and Output Vital Signs (last 24 hours): Temp Pulse Resp BP Pulse Ox 98 F 83 18 98/65 L 98 10/28/18 06:00 10/28/18 06:00 10/28/18 06:00 10/28/18 06:00 10/28/18 06:00 Intake and Output: 10/28/18 10/28/18 06:59 18:59 Intake Total 540 Balance 540 - Medications Medications: Current Medications Aspirin (Ecotrin) 81 mg PO DAILY [facility] Last Admin: 10/28/18 09:41 Dose: 81 mg Duloxetine HCl (Cymbalta) 60 mg PO DAILY [facility] Last Admin: 10/28/18 09:37 Dose: 60 mg Enoxaparin Sodium (Lovenox) 40 mg SC DAILY [facility]; Protocol Last Admin: 10/28/18 09:36 Dose: 40 mg Famotidine (Pepcid) 20 mg PO DAILY [facility] Gabapentin (Neurontin) 1,200 mg PO TID [facility]; Protocol Last Admin: 10/28/18 13:00 Dose: 1,200 mg Ibuprofen (Motrin Tab) 600 mg PO Q6H PRN PRN Reason: Pain, moderate (4-7) Last Admin: 10/28/18 09:32 Dose: 600 mg Levalbuterol HCl (Xopenex) 0.63 mg IH [id number] PRN PRN Reason: Shortness of Breath Last Admin: 10/22/18 10:12 Dose: 0.63 mg Lidocaine (Lidoderm) 1 ea TD DAILY [facility] Lorazepam (Ativan) 2 mg IVP Q4H PRN; Protocol PRN Reason: Anxiety Last Admin: 10/26/18 15:20 Dose: 2 mg Montelukast Sodium (Singulair) 10 mg PO HS [facility] Last Admin: 10/27/18 21:16 Dose: 10 mg Ondansetron HCl (Zofran Inj) 4 mg IVP Q6H PRN PRN Reason: Nausea/Vomiting Last Admin: 10/27/18 15:28 Dose: 4 mg Pantoprazole Sodium (Protonix Ec Tab) 40 mg PO 0600 [facility] Last Admin: 10/28/18 05:16 Dose: 40 mg Polyethylene Glycol (Miralax) 17 gm PO BID [facility] Last Admin: 10/28/18 09:37 Dose: 17 gm Sennosides (Senokot Tab) 8.6 mg PO DAILY [facility] Last Admin: 10/28/18 09:37 Dose: 8.6 mg Topiramate (Topamax) 150 mg PO DAILY [facility]; Protocol Last Admin: 10/26/18 10:17 Dose: 150 mg - Labs Labs: 10/28/18 07:00 10/28/18 07:00 PT 13.6 SECONDS (9.4-12.5) H 10/27/18 10:40 INR 1.20 10/27/18 10:40 - Constitutional Appears: Non-toxic, No Acute Distress - Head Exam Head Exam: ATRAUMATIC, NORMAL INSPECTION - Eye Exam Eye Exam: EOMI, Normal appearance - ENT Exam ENT Exam: Mucous Membranes Moist, Normal Exam - Respiratory Exam Respiratory Exam: Clear to Ausculation Bilateral, NORMAL BREATHING PATTERN - Cardiovascular Exam Cardiovascular Exam: REGULAR RHYTHM, +S1, +S2 - GI/Abdominal Exam GI & Abdominal Exam: Soft, Tenderness, Normal Bowel Sounds - Neurological Exam Neurological Exam: Alert, Awake, Oriented x3 - Psychiatric Exam Psychiatric exam: Normal Affect, Normal Mood - Skin Skin Exam: Normal Color, Warm Assessment and Plan - Assessment and Plan (Free Text) Assessment: #elevated liver tests #NAFLD #Seizure disorder #Gastric sleeve 2009 #Hiatal hernia repair Plan: the elevated liver enzymes are a hepatocellular pattern and may be reactive to seizures/antiepileptic medications insetting of NAFLD, ?KELLOGG. No signs or symptoms of acute liver failure. ultrasound reviewedfatty liver, CBD 8.3, good hepatopedal blood flow -U/S duplex negative for liver vascular disease Workup for other sources of liver disease with significant family history pending. Follow-up [facility], RPR, EBV, HSV, Alpha-1 etc. w/u -Autoimmune, iron w/u negative May consider liver biopsy if no improvement of liver tests and workup negative. Case discussed with Dr. Martinez, see attestation <Tonny Martinez Y - Last Filed: 10/28/18 13:59> Objective - Vital Signs/Intake and Output Vital Signs (last 24 hours): Temp Pulse Resp BP Pulse Ox 98 F 83 18 98/65 L 98 10/28/18 06:00 10/28/18 06:00 10/28/18 06:00 10/28/18 06:00 10/28/18 06:00 Intake and Output: 10/28/18 10/28/18 06:59 18:59 Intake Total 540 Balance 540 - Medications Medications: Current Medications Aspirin (Ecotrin) 81 mg PO DAILY [facility] Last Admin: 10/28/18 09:41 Dose: 81 mg Duloxetine HCl (Cymbalta) 60 mg PO DAILY [facility] Last Admin: 10/28/18 09:37 Dose: 60 mg Enoxaparin Sodium (Lovenox) 40 mg SC DAILY [facility]; Protocol Last Admin: 10/28/18 09:36 Dose: 40 mg Famotidine (Pepcid) 20 mg PO DAILY [facility] Gabapentin (Neurontin) 1,200 mg PO TID [facility]; Protocol Last Admin: 10/28/18 13:00 Dose: 1,200 mg Ibuprofen (Motrin Tab) 600 mg PO Q6H PRN PRN Reason: Pain, moderate (4-7) Last Admin: 10/28/18 09:32 Dose: 600 mg Levalbuterol HCl (Xopenex) 0.63 mg IH [id number] PRN PRN Reason: Shortness of Breath Last Admin: 10/22/18 10:12 Dose: 0.63 mg Lidocaine (Lidoderm) 1 ea TD DAILY [facility] Lorazepam (Ativan) 2 mg IVP Q4H PRN; Protocol PRN Reason: Anxiety Last Admin: 10/26/18 15:20 Dose: 2 mg Montelukast Sodium (Singulair) 10 mg PO HS [facility] Last Admin: 10/27/18 21:16 Dose: 10 mg Ondansetron HCl (Zofran Inj) 4 mg IVP Q6H PRN PRN Reason: Nausea/Vomiting Last Admin: 10/27/18 15:28 Dose: 4 mg Pantoprazole Sodium (Protonix Ec Tab) 40 mg PO 0600 [facility] Last Admin: 10/28/18 05:16 Dose: 40 mg Polyethylene Glycol (Miralax) 17 gm PO BID [facility] Last Admin: 10/28/18 09:37 Dose: 17 gm Sennosides (Senokot Tab) 8.6 mg PO DAILY [facility] Last Admin: 10/28/18 09:37 Dose: 8.6 mg Topiramate (Topamax) 150 mg PO DAILY [facility]; Protocol Last Admin: 10/26/18 10:17 Dose: 150 mg - Labs Labs: 10/28/18 07:00 10/28/18 07:00 PT 13.6 SECONDS (9.4-12.5) H 10/27/18 10:40 INR 1.20 10/27/18 10:40 Attending/Attestation - Attestation I have fully participated in the care of the patient.: Yes I have reviewed all pertinent clinical information, including history, physical exam and plan: Yes Notes (Text): 10/28/18 13:55 Obesity s/p sleeve gastrectomy Seizure disorder Transaminitis Abdominal US reviewed by me showing fatty liver, no presence of hepatic lesions - Diet as tolerated - Continue to monitor LFTs, Cymbalta held given association of hepatotoxicity - Follow up additional blood testing for persistent elevation of LFTs - If workup is negative and elevation continues, may consider liver biopsy for further evaluation
[2018-10-28] MEDS: Lidocaine 5% Patch TD SCH (15:15)
--- NOTE | 2018-10-28 16:06 | CP.PCM.PN ---
<Ruben Cedeno - Last Filed: 10/28/18 18:05> Subjective - Date & Time of Evaluation Date of Evaluation: 10/28/18 Time of Evaluation: 10:00 - Subjective Subjective: Ruben Cedeno, PGY1 Medicine Progress Note: Pt was seen and examined at bedside in the AM. Pt states that she had a BM early in the AM and had no other acute events. Pt states that she still feels no headache, fevers, chills, SOB, cough, chest pain, palpitations, n/v, d or dysuria. No other acute complaints at this time. PT is recommending TCU for the pt. Objective - Vital Signs/Intake and Output Vital Signs (last 24 hours): Temp Pulse Resp BP Pulse Ox 98 F 83 18 98/65 L 98 10/28/18 06:00 10/28/18 06:00 10/28/18 06:00 10/28/18 06:00 10/28/18 06:00 Intake and Output: 10/28/18 10/28/18 06:59 18:59 Intake Total 540 Balance 540 - Medications Medications: Current Medications Aspirin (Ecotrin) 81 mg PO DAILY [facility] Last Admin: 10/28/18 09:41 Dose: 81 mg Duloxetine HCl (Cymbalta) 60 mg PO DAILY [facility] Last Admin: 10/28/18 09:37 Dose: 60 mg Enoxaparin Sodium (Lovenox) 40 mg SC DAILY [facility]; Protocol Last Admin: 10/28/18 09:36 Dose: 40 mg Famotidine (Pepcid) 20 mg PO DAILY [facility] Gabapentin (Neurontin) 1,200 mg PO TID [facility]; Protocol Last Admin: 10/28/18 13:00 Dose: 1,200 mg Ibuprofen (Motrin Tab) 600 mg PO Q6H PRN PRN Reason: Pain, moderate (4-7) Last Admin: 10/28/18 09:32 Dose: 600 mg Levalbuterol HCl (Xopenex) 0.63 mg IH [id number] PRN PRN Reason: Shortness of Breath Last Admin: 10/22/18 10:12 Dose: 0.63 mg Lidocaine (Lidoderm) 1 ea TD DAILY [facility] Last Admin: 10/28/18 15:15 Dose: 1 ea Lorazepam (Ativan) 2 mg IVP Q4H PRN; Protocol PRN Reason: Anxiety Last Admin: 10/26/18 15:20 Dose: 2 mg Montelukast Sodium (Singulair) 10 mg PO HS [facility] Last Admin: 10/27/18 21:16 Dose: 10 mg Ondansetron HCl (Zofran Inj) 4 mg IVP Q6H PRN PRN Reason: Nausea/Vomiting Last Admin: 10/27/18 15:28 Dose: 4 mg Pantoprazole Sodium (Protonix Ec Tab) 40 mg PO 0600 [facility] Last Admin: 10/28/18 05:16 Dose: 40 mg Polyethylene Glycol (Miralax) 17 gm PO BID [facility] Last Admin: 10/28/18 09:37 Dose: 17 gm Sennosides (Senokot Tab) 8.6 mg PO DAILY [facility] Last Admin: 10/28/18 09:37 Dose: 8.6 mg Topiramate (Topamax) 150 mg PO DAILY [facility]; Protocol Last Admin: 10/26/18 10:17 Dose: 150 mg - Labs Labs: 10/28/18 07:00 10/28/18 07:00 PT 13.6 SECONDS (9.4-12.5) H 10/27/18 10:40 INR 1.20 10/27/18 10:40 - Constitutional Appears: Non-toxic, No Acute Distress - Head Exam Head Exam: ATRAUMATIC, NORMAL INSPECTION, NORMOCEPHALIC - Eye Exam Eye Exam: EOMI, Normal appearance, PERRL - Respiratory Exam Respiratory Exam: Clear to Ausculation Bilateral, NORMAL BREATHING PATTERN. absent: Accessory Muscle Use, Rales, Rhonchi, Wheezes, Respiratory Distress, Stridor - Cardiovascular Exam Cardiovascular Exam: RRR, +S1, +S2. absent: Gallop, Rubs - GI/Abdominal Exam GI & Abdominal Exam: Soft, Normal Bowel Sounds. absent: Firm, Guarding, Tenderness - Extremities Exam Extremities Exam: Normal Capillary Refill, Normal Inspection - Back Exam Back Exam: NORMAL INSPECTION. absent: CVA tenderness (L), CVA tenderness (R) - Neurological Exam Neurological Exam: Alert, Awake, Oriented x 3 Additional comments: LLE weakness noted, chronic 2/2 old CVA. - Psychiatric Exam Psychiatric exam: Flat Affect - Skin Skin Exam: Dry, Normal Color, Warm Assessment and Plan - Assessment and Plan (Free Text) Assessment: Patient is a 48 year old female with past medical history of CVA with residual left sided weakness, epilepsy, fibromyalgia presenting s/p seizure episode, also complaining of chest pain. Plan: Seizure - CT head prelim read shows possible tiny petechial hemorrhage in left basal g anglia vs. artifact - Ativan PRN - for seizures - EEG - awaiting report - Seizure/aspiration precautions - Neurology consulted, rec appreciated - home Topamax 150 mg PO daily - Held due to elevated LFTs - Gabapentin 1200 TID per neuro - Repeat CT head - Showed no interval change from previous study. - MRI Brain: Showed no acute abnormalities - PT - recommend TCU Transaminitis: - Suspected to be 2/2 medication induced - Continues to be uptrending - Topimax on hold, as this medication thought to be leading to transaminitis - Will hold protonix, duloxetine and singular as well as they can also lead to transaminitis - Abd US showed hepatic steatosis without focal liver abnormality - Will discuss with Neuro, if related to any increase in medication - GI consulted, Dr. Martinez, recs appreciated Atypical chest pain - Troponin negx3 - ECHO from 09/2018 shows EF 60-65% - EKG - NSR HR @ 67 - TSH: 3.09 - ASA 81 mg PO daily - Oxygen NC - Cardiology consulted, recommended outpt follow up for cath Constipation: - Pt started on miralax - Pt now on senna - Pt had BM this AM - Cont to monitor Elevated d-dimer - V/Q scan (-) for PE PPX - Pepcid, Lovenox SC Case reviewed with Dr. Vanessa Cedeno PGY-1 <Jerry Mendez - Last Filed: 10/29/18 16:44> Objective - Vital Signs/Intake and Output Vital Signs (last 24 hours): Temp Pulse Resp BP Pulse Ox 98.3 F 80 20 95/65 L 96 10/29/18 14:00 10/29/18 14:00 10/29/18 14:00 10/29/18 14:00 10/29/18 14:00 Intake and Output: 10/29/18 10/29/18 06:59 18:59 Intake Total 540 Output Total 300 Balance 240 - Medications Medications: Current Medications Aspirin (Ecotrin) 81 mg PO DAILY [facility] Last Admin: 10/29/18 13:26 Dose: Not Given Duloxetine HCl (Cymbalta) 60 mg PO DAILY [facility] Last Admin: 10/28/18 09:37 Dose: 60 mg Enoxaparin Sodium (Lovenox) 40 mg SC DAILY [facility]; Protocol Last Admin: 10/29/18 13:26 Dose: Not Given Famotidine (Pepcid) 20 mg PO DAILY [facility] Last Admin: 10/29/18 13:27 Dose: Not Given Gabapentin (Neurontin) 1,200 mg PO TID [facility]; Protocol Last Admin: 10/29/18 15:24 Dose: 1,200 mg Sodium Chloride (Sodium Chloride 0.9%) 1,000 mls @ 100 mls/hr IV .Q10H [facility] Last Admin: 10/29/18 09:37 Dose: 100 mls/hr Ibuprofen (Motrin Tab) 600 mg PO Q6H PRN PRN Reason: Pain, moderate (4-7) Last Admin: 10/28/18 17:29 Dose: 600 mg Levalbuterol HCl (Xopenex) 0.63 mg IH [id number] PRN PRN Reason: Shortness of Breath Last Admin: 10/22/18 10:12 Dose: 0.63 mg Lidocaine (Lidoderm) 1 ea TD DAILY [facility] Last Admin: 10/29/18 15:25 Dose: 1 ea Lorazepam (Ativan) 2 mg IVP Q4H PRN; Protocol PRN Reason: Anxiety Last Admin: 10/26/18 15:20 Dose: 2 mg Montelukast Sodium (Singulair) 10 mg PO HS [facility] Last Admin: 10/27/18 21:16 Dose: 10 mg Ondansetron HCl (Zofran Inj) 4 mg IVP Q6H PRN PRN Reason: Nausea/Vomiting Last Admin: 10/27/18 15:28 Dose: 4 mg Pantoprazole Sodium (Protonix Ec Tab) 40 mg PO 0600 [facility] Last Admin: 10/28/18 05:16 Dose: 40 mg Polyethylene Glycol (Miralax) 17 gm PO BID [facility] Last Admin: 10/29/18 13:27 Dose: Not Given Sennosides (Senokot Tab) 8.6 mg PO DAILY [facility] Last Admin: 10/29/18 13:28 Dose: Not Given Topiramate (Topamax) 150 mg PO DAILY [facility]; Protocol Last Admin: 10/26/18 10:17 Dose: 150 mg - Labs Labs: 10/29/18 07:00 10/29/18 07:00 PT 12.5 SECONDS (9.4-12.5) 10/29/18 10:35 INR 1.11 10/29/18 10:35 APTT 36.9 Seconds (26.9-38.3) 10/29/18 10:35 Attending/Attestation - Attestation I have personally seen and examined this patient.: Yes I have fully participated in the care of the patient.: Yes I have reviewed all pertinent clinical information, including history, physical exam and plan: Yes Notes (Text): 10/29/18 16:40 Medical record note made by the resident after discussion with my direction and input after the patient was personally seen and examined by me. I have reviewed the chart and agree that the record accurately reflects by personal performance of the history, physical exam, data review, and medical decision-making, in the course for the patient. I have also personally directed the plan of care. 48 year old female with past medical history of CVA with residual left sided weakness, epilepsy, fibromyalgia presenting s/p seizure episode, - CT head prelim read shows possible tiny petechial hemorrhage in left basal ganglia vs. artifact, MRI Brain: Showed no acute abnormalities - Patient developed transaiminitis , etiology is likely due to medications.AST and ALT are increasing. GI evaluation is appreciated. IR is consulted for liver biopsy. We will monitor closely.
[2018-10-29 07:15] LABS: BASO # 0.01 K/mm3 (0.0-2.0); BASO % 0.3 % (0.0-3.0); EOS # 0.2 (0.0-0.7); EOS % 6.6 % (1.5-5.0); HEMOGLOBIN 11.2 g/dL (12.0-16.0); LYMPH # 1.2 (1.2-3.4); LYMPH % 33.9 % (22.0-35.0); MEAN CELL VOLUME 84.6 fl (80.0-105.0); MEAN CORPUSCULAR HEMOGLOBIN 26.5 pg (25.0-35.0); MEAN CORPUSCULAR HGB CONC 31.3 g/dl (31.0-37.0); MEAN PLATELET VOLUME 11.8 fl (7.0-11.0); MONO # 0.3 (0.1-0.6); MONO % 7.4 % (1.0-6.0); RBC 4.23 10^6/uL (3.5-6.1); WHITE BLOOD COUNT 3.6 10^3/uL (4.5-11.0)
[2018-10-29 07:26] LABS: ALB/GLOB RATIO 1.2 (1.1-1.8); ALT/SGPT 680 U/L (7-56); AST/SGOT 614 U/L (14-36); BLOOD UREA NITROGEN 21 mg/dL (7-21); CALCIUM 9.3 mg/dL (8.4-10.5); GFR NON-AFRICAN AMERICAN > 60
[2018-10-29] MEDS ORDERED: Sodium Chloride 0.9% 1,000 ML IV SCH (08:45)
[2018-10-29 10:57] LABS: INR 1.11; PARTIAL THROMBOPLASTIN TIME 36.9 Seconds (26.9-38.3); PROTHROMBIN TIME 12.5 SECONDS (9.4-12.5)
--- NOTE | 2018-10-29 11:24 | CP.PCM.PN ---
<AnnavirginiaDevon - Last Filed: 10/29/18 11:21> Subjective - Date & Time of Evaluation Date of Evaluation: 10/29/18 Time of Evaluation: 11:21 - Subjective Subjective: GI Fellow progress note Patient has not changed clinically. She is tolerating diet, and having BMs. She denies nausea, vomiting. She reports mild-moderate abdominal discomfort after U/S study. 5pt ROS completed and negative except for above. Objective - Vital Signs/Intake and Output Vital Signs (last 24 hours): Temp Pulse Resp BP Pulse Ox 98 F 81 18 91/62 L 97 10/29/18 06:00 10/29/18 06:00 10/29/18 06:00 10/29/18 06:00 10/29/18 06:00 Intake and Output: 10/29/18 10/29/18 06:59 18:59 Intake Total 540 Output Total 300 Balance 240 - Medications Medications: Current Medications Aspirin (Ecotrin) 81 mg PO DAILY [facility] Last Admin: 10/28/18 09:41 Dose: 81 mg Duloxetine HCl (Cymbalta) 60 mg PO DAILY [facility] Last Admin: 10/28/18 09:37 Dose: 60 mg Enoxaparin Sodium (Lovenox) 40 mg SC DAILY [facility]; Protocol Last Admin: 10/28/18 09:36 Dose: 40 mg Famotidine (Pepcid) 20 mg PO DAILY [facility] Gabapentin (Neurontin) 1,200 mg PO TID [facility]; Protocol Last Admin: 10/28/18 17:27 Dose: 1,200 mg Sodium Chloride (Sodium Chloride 0.9%) 1,000 mls @ 100 mls/hr IV .Q10H [facility] Last Admin: 10/29/18 09:37 Dose: 100 mls/hr Ibuprofen (Motrin Tab) 600 mg PO Q6H PRN PRN Reason: Pain, moderate (4-7) Last Admin: 10/28/18 17:29 Dose: 600 mg Levalbuterol HCl (Xopenex) 0.63 mg IH [id number] PRN PRN Reason: Shortness of Breath Last Admin: 10/22/18 10:12 Dose: 0.63 mg Lidocaine (Lidoderm) 1 ea TD DAILY [facility] Last Admin: 10/28/18 15:15 Dose: 1 ea Lorazepam (Ativan) 2 mg IVP Q4H PRN; Protocol PRN Reason: Anxiety Last Admin: 10/26/18 15:20 Dose: 2 mg Montelukast Sodium (Singulair) 10 mg PO HS [facility] Last Admin: 10/27/18 21:16 Dose: 10 mg Ondansetron HCl (Zofran Inj) 4 mg IVP Q6H PRN PRN Reason: Nausea/Vomiting Last Admin: 10/27/18 15:28 Dose: 4 mg Pantoprazole Sodium (Protonix Ec Tab) 40 mg PO 0600 [facility] Last Admin: 10/28/18 05:16 Dose: 40 mg Polyethylene Glycol (Miralax) 17 gm PO BID [facility] Last Admin: 10/28/18 17:28 Dose: 17 gm Sennosides (Senokot Tab) 8.6 mg PO DAILY [facility] Last Admin: 10/28/18 09:37 Dose: 8.6 mg Topiramate (Topamax) 150 mg PO DAILY [facility]; Protocol Last Admin: 10/26/18 10:17 Dose: 150 mg - Labs Labs: 10/29/18 07:00 10/29/18 07:00 PT 12.5 SECONDS (9.4-12.5) 10/29/18 10:35 INR 1.11 10/29/18 10:35 APTT 36.9 Seconds (26.9-38.3) 10/29/18 10:35 - Constitutional Appears: Non-toxic, No Acute Distress - Head Exam Head Exam: ATRAUMATIC, NORMAL INSPECTION - Eye Exam Eye Exam: EOMI, Normal appearance - ENT Exam ENT Exam: Mucous Membranes Moist, Normal Exam - Respiratory Exam Respiratory Exam: Clear to Ausculation Bilateral, NORMAL BREATHING PATTERN - Cardiovascular Exam Cardiovascular Exam: REGULAR RHYTHM, +S1, +S2 - GI/Abdominal Exam GI & Abdominal Exam: Soft, Tenderness, Normal Bowel Sounds - Extremities Exam Extremities Exam: Normal Inspection. absent: Pedal Edema - Neurological Exam Neurological Exam: Alert, Awake, Oriented x3 - Psychiatric Exam Psychiatric exam: Normal Affect, Normal Mood - Skin Skin Exam: Normal Color, Warm Assessment and Plan - Assessment and Plan (Free Text) Assessment: #elevated liver tests #NAFLD #Seizure disorder #Gastric sleeve 2009 #Hiatal hernia repair Plan: the elevated liver enzymes are a hepatocellular pattern and may be reactive to seizures/antiepileptic medications in setting of NAFLD, ?KELLOGG. -Unfortunately, liver enzymes continue to increase. We will plan for liver biopsy. Radiology has been consulted. No signs or symptoms of acute liver failure. ultrasound reviewedfatty liver, CBD 8.3, good hepatopedal blood flow -U/S duplex negative for liver vascular disease Workup for other sources of liver disease with significant family history pending. Follow-up EBV, HSV, Alpha-1 etc. w/u -Viral Hep panel, Autoimmune, iron, wilsons, RPR w/u negative Case discussed with Dr. Martinez, see attestation <Tonny Martinez - Last Filed: 10/29/18 12:47> Objective - Vital Signs/Intake and Output Vital Signs (last 24 hours): Temp Pulse Resp BP Pulse Ox 98 F 81 18 91/62 L 97 10/29/18 06:00 10/29/18 06:00 10/29/18 06:00 10/29/18 06:00 10/29/18 06:00 Intake and Output: 10/29/18 10/29/18 06:59 18:59 Intake Total 540 Output Total 300 Balance 240 - Medications Medications: Current Medications Aspirin (Ecotrin) 81 mg PO DAILY [facility] Last Admin: 10/28/18 09:41 Dose: 81 mg Duloxetine HCl (Cymbalta) 60 mg PO DAILY [facility] Last Admin: 10/28/18 09:37 Dose: 60 mg Enoxaparin Sodium (Lovenox) 40 mg SC DAILY [facility]; Protocol Last Admin: 10/28/18 09:36 Dose: 40 mg Famotidine (Pepcid) 20 mg PO DAILY [facility] Gabapentin (Neurontin) 1,200 mg PO TID [facility]; Protocol Last Admin: 10/28/18 17:27 Dose: 1,200 mg Sodium Chloride (Sodium Chloride 0.9%) 1,000 mls @ 100 mls/hr IV .Q10H [facility] Last Admin: 10/29/18 09:37 Dose: 100 mls/hr Ibuprofen (Motrin Tab) 600 mg PO Q6H PRN PRN Reason: Pain, moderate (4-7) Last Admin: 10/28/18 17:29 Dose: 600 mg Levalbuterol HCl (Xopenex) 0.63 mg IH [id number] PRN PRN Reason: Shortness of Breath Last Admin: 10/22/18 10:12 Dose: 0.63 mg Lidocaine (Lidoderm) 1 ea TD DAILY [facility] Last Admin: 10/28/18 15:15 Dose: 1 ea Lorazepam (Ativan) 2 mg IVP Q4H PRN; Protocol PRN Reason: Anxiety Last Admin: 10/26/18 15:20 Dose: 2 mg Montelukast Sodium (Singulair) 10 mg PO HS [facility] Last Admin: 10/27/18 21:16 Dose: 10 mg Ondansetron HCl (Zofran Inj) 4 mg IVP Q6H PRN PRN Reason: Nausea/Vomiting Last Admin: 10/27/18 15:28 Dose: 4 mg Pantoprazole Sodium (Protonix Ec Tab) 40 mg PO 0600 [facility] Last Admin: 10/28/18 05:16 Dose: 40 mg Polyethylene Glycol (Miralax) 17 gm PO BID [facility] Last Admin: 10/28/18 17:28 Dose: 17 gm Sennosides (Senokot Tab) 8.6 mg PO DAILY [facility] Last Admin: 10/28/18 09:37 Dose: 8.6 mg Topiramate (Topamax) 150 mg PO DAILY [facility]; Protocol Last Admin: 10/26/18 10:17 Dose: 150 mg - Labs Labs: 10/29/18 07:00 10/29/18 07:00 PT 12.5 SECONDS (9.4-12.5) 10/29/18 10:35 INR 1.11 10/29/18 10:35 APTT 36.9 Seconds (26.9-38.3) 10/29/18 10:35 Attending/Attestation - Attestation I have personally seen and examined this patient.: Yes I have fully participated in the care of the patient.: Yes I have reviewed all pertinent clinical information, including history, physical exam and plan: Yes Notes (Text): 10/29/18 12:45 I have seen and examined patient with GI fellow. No acute events overnight, she is seen resting in bed comfortably. She reports right sided abdominal discomfort but denies nausea, vomiting, fever/chills. Tolerating PO diet without difficulty. Seizure disorder Transaminitis of unclear etiology - Diet as tolerated - Continue to monitor LFTs and avoid hepatotoxic therapies - Awaiting additional liver workup results - Given persistent elevation of LFTs without clear source will suggest liver biopsy to help guide further management - Will continue to monitor patient clinical course
[2018-10-29] MEDS: Enoxaparin 40 mg Syringe SC SCH (13:26)
[2018-10-29] MEDS: POLYETHYLENE GLYCOL 3350 17 GM/Dose PACKET PO SCH ×2 (13:27→18:09)
--- NOTE | 2018-10-29 13:46 | CP.PCM.PN ---
<Ruben Cedeno - Last Filed: 10/29/18 18:10> Subjective - Date & Time of Evaluation Date of Evaluation: 10/29/18 Time of Evaluation: 11:00 - Subjective Subjective: Ruben Cedeno, PGY1 Medicine Progress Note: Pt was seen and examined at bedside in the AM. Pt denies any acute overnight events. Pt states that she still feels no headache, fevers, chills, SOB, cough, chest pain, palpitations, n/v, d or dysuria. Pt does endorse that she is starting to feel some RUQ abd pain and soreness which she has noted for the first time today. PT is recommending TCU for the pt. Objective - Vital Signs/Intake and Output Vital Signs (last 24 hours): Temp Pulse Resp BP Pulse Ox 98 F 81 18 91/62 L 97 10/29/18 06:00 10/29/18 06:00 10/29/18 06:00 10/29/18 06:00 10/29/18 06:00 Intake and Output: 10/29/18 10/29/18 06:59 18:59 Intake Total 540 Output Total 300 Balance 240 - Medications Medications: Current Medications Aspirin (Ecotrin) 81 mg PO DAILY [facility] Last Admin: 10/29/18 13:26 Dose: Not Given Duloxetine HCl (Cymbalta) 60 mg PO DAILY [facility] Last Admin: 10/28/18 09:37 Dose: 60 mg Enoxaparin Sodium (Lovenox) 40 mg SC DAILY CE; Protocol Last Admin: 10/29/18 13:26 Dose: Not Given Famotidine (Pepcid) 20 mg PO DAILY [facility] Last Admin: 10/29/18 13:27 Dose: Not Given Gabapentin (Neurontin) 1,200 mg PO TID CE; Protocol Last Admin: 10/29/18 13:27 Dose: Not Given Sodium Chloride (Sodium Chloride 0.9%) 1,000 mls @ 100 mls/hr IV .Q10H [facility] Last Admin: 10/29/18 09:37 Dose: 100 mls/hr Ibuprofen (Motrin Tab) 600 mg PO Q6H PRN PRN Reason: Pain, moderate (4-7) Last Admin: 10/28/18 17:29 Dose: 600 mg Levalbuterol HCl (Xopenex) 0.63 mg IH [id number] PRN PRN Reason: Shortness of Breath Last Admin: 10/22/18 10:12 Dose: 0.63 mg Lidocaine (Lidoderm) 1 ea TD DAILY [facility] Last Admin: 10/28/18 15:15 Dose: 1 ea Lorazepam (Ativan) 2 mg IVP Q4H PRN; Protocol PRN Reason: Anxiety Last Admin: 10/26/18 15:20 Dose: 2 mg Montelukast Sodium (Singulair) 10 mg PO HS [facility] Last Admin: 10/27/18 21:16 Dose: 10 mg Ondansetron HCl (Zofran Inj) 4 mg IVP Q6H PRN PRN Reason: Nausea/Vomiting Last Admin: 10/27/18 15:28 Dose: 4 mg Pantoprazole Sodium (Protonix Ec Tab) 40 mg PO 0600 [facility] Last Admin: 10/28/18 05:16 Dose: 40 mg Polyethylene Glycol (Miralax) 17 gm PO BID [facility] Last Admin: 10/29/18 13:27 Dose: Not Given Sennosides (Senokot Tab) 8.6 mg PO DAILY [facility] Last Admin: 10/29/18 13:28 Dose: Not Given Topiramate (Topamax) 150 mg PO DAILY [facility]; Protocol Last Admin: 10/26/18 10:17 Dose: 150 mg - Labs Labs: 10/29/18 07:00 10/29/18 07:00 PT 12.5 SECONDS (9.4-12.5) 10/29/18 10:35 INR 1.11 10/29/18 10:35 APTT 36.9 Seconds (26.9-38.3) 10/29/18 10:35 - Constitutional Appears: Non-toxic, No Acute Distress - Head Exam Head Exam: ATRAUMATIC, NORMAL INSPECTION, NORMOCEPHALIC - Eye Exam Eye Exam: EOMI, Normal appearance, PERRL - Respiratory Exam Respiratory Exam: Clear to Ausculation Bilateral, NORMAL BREATHING PATTERN. absent: Accessory Muscle Use, Rales, Rhonchi, Wheezes, Respiratory Distress, Stridor - Cardiovascular Exam Cardiovascular Exam: RRR, +S1, +S2. absent: Gallop, Rubs - GI/Abdominal Exam GI & Abdominal Exam: Soft, Normal Bowel Sounds, Tenderness (present in the RUQ upon palpation). absent: Firm, Guarding - Extremities Exam Extremities Exam: Normal Capillary Refill, Normal Inspection - Back Exam Back Exam: NORMAL INSPECTION. absent: CVA tenderness (L), CVA tenderness (R) - Neurological Exam Neurological Exam: Alert, Awake, Oriented x 3 Additional comments: LLE weakness noted, chronic 2/2 old CVA. - Psychiatric Exam Psychiatric exam: Flat Affect - Skin Skin Exam: Dry, Normal Color, Warm Assessment and Plan - Assessment and Plan (Free Text) Assessment: Patient is a 48 year old female with past medical history of CVA with residual left sided weakness, epilepsy, fibromyalgia presenting s/p seizure episode, also complaining of chest pain. Plan: Transaminitis: - Suspected to be 2/2 medication induced - Continues to be uptrending - Topimax, protonix, duloxetine and singular on hold, as these medications thought to be leading to transaminitis - Abd US showed hepatic steatosis without focal liver abnormality - Will discuss with Neuro, if related to any increase in medication - GI consulted, Dr. Martinez, recs appreciated - Liver Biopsy likely on Thu/Thursday per IR - Will cont to monitor Seizure - CT head prelim read shows possible tiny petechial hemorrhage in left basal ganglia vs. artifact - Ativan PRN - for seizures - EEG - awaiting report - Seizure/aspiration precautions - Neurology consulted, rec appreciated - home Topamax 150 mg PO daily - Held due to elevated LFTs - Gabapentin 1200 TID per neuro - Repeat CT head - Showed no interval change from previous study. - MRI Brain: Showed no acute abnormalities - PT - recommend TCU Atypical chest pain: Resolved - Troponin negx3 - ECHO from 09/2018 shows EF 60-65% - EKG - NSR HR @ 67 - TSH: 3.09 - ASA 81 mg PO daily - Oxygen NC - Cardiology consulted, recommended outpt follow up for cath Constipation: Resolved - Pt started on miralax - Pt now on senna - Responded - Cont to monitor Elevated d-dimer - V/Q scan (-) for PE PPX - Pepcid, Lovenox SC Case reviewed with Dr. Vanessa Cedeno PGY-1 <Jerry Mendez - Last Filed: 10/30/18 10:34> Objective - Vital Signs/Intake and Output Vital Signs (last 24 hours): Temp Pulse Resp BP Pulse Ox 97.5 F L 71 18 97/61 L 97 10/29/18 22:00 10/29/18 22:00 10/29/18 22:00 10/29/18 22:00 10/29/18 22:00 Intake and Output: 10/30/18 10/30/18 06:59 18:59 Intake Total 240 Balance 240 - Medications Medications: Current Medications Aspirin (Ecotrin) 81 mg PO DAILY [facility] Last Admin: 10/30/18 10:02 Dose: 81 mg Duloxetine HCl (Cymbalta) 60 mg PO DAILY [facility] Last Admin: 10/28/18 09:37 Dose: 60 mg Enoxaparin Sodium (Lovenox) 40 mg SC DAILY [facility]; Protocol Last Admin: 10/30/18 10:02 Dose: 40 mg Famotidine (Pepcid) 20 mg PO DAILY [facility] Last Admin: 10/30/18 10:02 Dose: 20 mg Gabapentin (Neurontin) 1,200 mg PO TID [facility]; Protocol Last Admin: 10/30/18 10:02 Dose: 1,200 mg Ibuprofen (Motrin Tab) 600 mg PO Q6H PRN PRN Reason: Pain, moderate (4-7) Last Admin: 10/28/18 17:29 Dose: 600 mg Levalbuterol HCl (Xopenex) 0.63 mg IH [id number] PRN PRN Reason: Shortness of Breath Last Admin: 10/22/18 10:12 Dose: 0.63 mg Lidocaine (Lidoderm) 1 ea TD DAILY CE Last Admin: 10/30/18 10:04 Dose: 1 ea Lorazepam (Ativan) 2 mg IVP Q4H PRN; Protocol PRN Reason: Anxiety Last Admin: 10/29/18 22:18 Dose: 2 mg Montelukast Sodium (Singulair) 10 mg PO HS CE Last Admin: 10/27/18 21:16 Dose: 10 mg Multi-Ingredient Ointment (Prep-Hem) 0 ea TOP DAILY CE Ondansetron HCl (Zofran Inj) 4 mg IVP Q6H PRN PRN Reason: Nausea/Vomiting Last Admin: 10/27/18 15:28 Dose: 4 mg Pantoprazole Sodium (Protonix Ec Tab) 40 mg PO 0600 CE Last Admin: 10/28/18 05:16 Dose: 40 mg Polyethylene Glycol (Miralax) 17 gm PO BID CE Last Admin: 10/30/18 10:03 Dose: 17 gm Sennosides (Senokot Tab) 8.6 mg PO DAILY [facility] Last Admin: 10/30/18 10:03 Dose: Not Given Topiramate (Topamax) 150 mg PO DAILY [facility]; Protocol Last Admin: 10/26/18 10:17 Dose: 150 mg - Labs Labs: 10/30/18 06:30 10/30/18 06:30 PT 12.5 SECONDS (9.4-12.5) 10/29/18 10:35 INR 1.11 10/29/18 10:35 APTT 36.9 Seconds (26.9-38.3) 10/29/18 10:35 Attending/Attestation - Attestation I have personally seen and examined this patient.: Yes I have fully participated in the care of the patient.: Yes I have reviewed all pertinent clinical information, including history, physical exam and plan: Yes Notes (Text): 10/30/18 10:29 Medical record note made by the resident after discussion with my direction and input after the patient was personally seen and examined by me. I have reviewed the chart and agree that the record accurately reflects by personal performance of the history, physical exam, data review, and medical decision-making, in the course for the patient. I have also personally directed the plan of care. 48 year old female with past medical history of CVA with residual left sided weakness, epilepsy, fibromyalgia presenting s/p seizure episode, - CT scan of head read shows possible tiny calcificationin left basal ganglia vs. artifact, MRI Brain: Showed no acute abnormalities.Patient topamax dose was increased but Patient developed transaiminitis , Etiology is likely due to medications.AST and ALT are increasing.Topimax, protonix, duloxetine and singular on hold, as these medications thought to be leading to transaminitis GI evaluation is appreciated. IR is consulted for liver biopsy. We will monitor LFT. Avoid hepatotoxic medication. Management plan was discussed in detail with patient. Education was provided
[2018-10-29] MEDS: Lidocaine 5% Patch TD SCH (15:25)
[2018-10-30 07:26] LABS: BASO # 0.02 K/mm3 (0.0-2.0); BASO % 0.4 % (0.0-3.0); EOS # 0.3 (0.0-0.7); EOS % 5.3 % (1.5-5.0); HEMOGLOBIN 11.1 g/dL (12.0-16.0); LYMPH # 1.3 (1.2-3.4); LYMPH % 26.4 % (22.0-35.0); MEAN CELL VOLUME 86.6 fl (80.0-105.0); MEAN CORPUSCULAR HEMOGLOBIN 26.5 pg (25.0-35.0); MEAN CORPUSCULAR HGB CONC 30.6 g/dl (31.0-37.0); MEAN PLATELET VOLUME 11.9 fl (7.0-11.0); MONO # 0.3 (0.1-0.6); MONO % 5.9 % (1.0-6.0); RBC 4.19 10^6/uL (3.5-6.1); RED CELL DISTRIBUTION WIDTH 23.2 % (11.5-14.5); WHITE BLOOD COUNT 4.7 10^3/uL (4.5-11.0)
[2018-10-30 08:06] LABS: ALB/GLOB RATIO 1.2 (1.1-1.8); ALT/SGPT 666 U/L (7-56); AST/SGOT 483 U/L (14-36); BLOOD UREA NITROGEN 20 mg/dL (7-21); CALCIUM 9.1 mg/dL (8.4-10.5); GFR NON-AFRICAN AMERICAN > 60
[2018-10-30] MEDS: Enoxaparin 40 mg Syringe SC SCH (10:02)
[2018-10-30] MEDS: POLYETHYLENE GLYCOL 3350 17 GM/Dose PACKET PO SCH ×2 (10:03→17:39)
[2018-10-30] MEDS: Lidocaine 5% Patch TD SCH (10:04)
[2018-10-30] MEDS: Hemorrohoidal Ointment (2 oz) TOP SCH (11:43)
--- NOTE | 2018-10-30 14:46 | CP.PCM.PN ---
<Angel Toscano - Last Filed: 10/30/18 14:42> Subjective - Date & Time of Evaluation Date of Evaluation: 10/30/18 Time of Evaluation: 11:00 - Subjective Subjective: INTERNAL MEDICINE PROGRESS NOTE FOR DR. JACOBY Toscano PGY1 Pt seen and examined at bedside this am. No acute events overnight. She reports pain from hemorrhoids. She continues to report RUQ soreness. She otherwise denies rest of 12 point ROS Objective - Vital Signs/Intake and Output Vital Signs (last 24 hours): Temp Pulse Resp BP Pulse Ox 97.5 F L 71 18 97/61 L 97 10/29/18 22:00 10/29/18 22:00 10/29/18 22:00 10/29/18 22:00 10/29/18 22:00 Intake and Output: 10/30/18 10/30/18 06:59 18:59 Intake Total 240 480 Balance 240 480 - Medications Medications: Current Medications Aspirin (Ecotrin) 81 mg PO DAILY [facility] Last Admin: 10/30/18 10:02 Dose: 81 mg Duloxetine HCl (Cymbalta) 60 mg PO DAILY CE Last Admin: 10/28/18 09:37 Dose: 60 mg Enoxaparin Sodium (Lovenox) 40 mg SC DAILY CE; Protocol Last Admin: 10/30/18 10:02 Dose: 40 mg Famotidine (Pepcid) 20 mg PO DAILY CE Last Admin: 10/30/18 10:02 Dose: 20 mg Gabapentin (Neurontin) 1,200 mg PO TID CE; Protocol Last Admin: 10/30/18 14:27 Dose: 1,200 mg Ibuprofen (Motrin Tab) 600 mg PO Q6H PRN PRN Reason: Pain, moderate (4-7) Last Admin: 10/28/18 17:29 Dose: 600 mg Levalbuterol HCl (Xopenex) 0.63 mg IH [id number] PRN PRN Reason: Shortness of Breath Last Admin: 10/22/18 10:12 Dose: 0.63 mg Lidocaine (Lidoderm) 1 ea TD DAILY CE Last Admin: 10/30/18 10:04 Dose: 1 ea Lorazepam (Ativan) 2 mg IVP Q4H PRN; Protocol PRN Reason: Anxiety Last Admin: 10/29/18 22:18 Dose: 2 mg Montelukast Sodium (Singulair) 10 mg PO HS [facility] Last Admin: 10/27/18 21:16 Dose: 10 mg Multi-Ingredient Ointment (Prep-Hem) 0 ea TOP DAILY [facility] Last Admin: 10/30/18 11:43 Dose: 1 applic Ondansetron HCl (Zofran Inj) 4 mg IVP Q6H PRN PRN Reason: Nausea/Vomiting Last Admin: 10/27/18 15:28 Dose: 4 mg Pantoprazole Sodium (Protonix Ec Tab) 40 mg PO 0600 [facility] Last Admin: 10/28/18 05:16 Dose: 40 mg Polyethylene Glycol (Miralax) 17 gm PO BID [facility] Last Admin: 10/30/18 10:03 Dose: 17 gm Sennosides (Senokot Tab) 8.6 mg PO DAILY [facility] Last Admin: 10/30/18 10:03 Dose: Not Given Topiramate (Topamax) 150 mg PO DAILY [facility]; Protocol Last Admin: 10/26/18 10:17 Dose: 150 mg - Labs Labs: 10/30/18 06:30 10/30/18 06:30 PT 12.5 SECONDS (9.4-12.5) 10/29/18 10:35 INR 1.11 10/29/18 10:35 APTT 36.9 Seconds (26.9-38.3) 10/29/18 10:35 - Constitutional Appears: Non-toxic, No Acute Distress - Head Exam Head Exam: ATRAUMATIC, NORMAL INSPECTION, NORMOCEPHALIC - Eye Exam Eye Exam: EOMI, Normal appearance, PERRL - Respiratory Exam Respiratory Exam: Clear to Ausculation Bilateral, NORMAL BREATHING PATTERN. abs ent: Accessory Muscle Use, Rales, Rhonchi, Wheezes, Respiratory Distress, Stridor - Cardiovascular Exam Cardiovascular Exam: RRR, +S1, +S2. absent: Gallop, Rubs - GI/Abdominal Exam GI & Abdominal Exam: Soft, Normal Bowel Sounds, Tenderness (present in the RUQ upon palpation). absent: Firm, Guarding - Extremities Exam Extremities Exam: Normal Capillary Refill, Normal Inspection - Back Exam Back Exam: NORMAL INSPECTION. absent: CVA tenderness (L), CVA tenderness (R) - Neurological Exam Neurological Exam: Alert, Awake, Oriented x 3 Additional comments: LLE weakness noted, chronic 2/2 old CVA. - Psychiatric Exam Psychiatric exam: Flat Affect - Skin Skin Exam: Dry, Normal Color, Warm Assessment and Plan - Assessment and Plan (Free Text) Assessment: Patient is a 48 year old female with past medical history of CVA with residual left sided weakness, epilepsy, fibromyalgia presenting s/p seizure episode, also complaining of chest pain. Hospital stay complicated by transaminitis. Plan: Transaminitis: - Suspected to be 2/2 medication induced - Continues to be elevated - Plan for liver biopsy on 11/01 with Interventional Radiology - Topimax, protonix, duloxetine and singular on hold, as these medications thought to be leading to transaminitis - Abd US showed hepatic steatosis without focal liver abnormality - Will discuss with Neuro, if related to any increase in medication - GI consulted, Dr. Martinez, recs appreciated - Will continue to monitor and avoid hepatotoxic medications Seizure - CT head prelim read shows possible tiny petechial hemorrhage in left basal ganglia vs. artifact - Ativan PRN - for seizures - EEG - awaiting report - Seizure/aspiration precautions - Neurology consulted, rec appreciated - home Topamax 150 mg PO daily - Held due to elevated LFTs - Gabapentin 1200 TID per neuro - Repeat CT head - Showed no interval change from previous study. - MRI Brain: Showed no acute abnormalities - PT - recommend TCU Atypical chest pain: Resolved - Troponin negx3 - ECHO from 09/2018 shows EF 60-65% - EKG - NSR HR @ 67 - TSH: 3.09 - ASA 81 mg PO daily - Oxygen NC - Cardiology consulted, recommended outpt follow up for cath Constipation: Resolved - continue miralax/senna - Cont to monitor External Hemorrhoid - will start hemorrhoid ointment today Elevated d-dimer - V/Q scan (-) for PE PPX - Pepcid, Lovenox SC Case reviewed with Dr. Jacoby Toscano <Jerry Mendez - Last Filed: 10/30/18 16:33> Objective - Vital Signs/Intake and Output Vital Signs (last 24 hours): Temp Pulse Resp BP Pulse Ox 97.6 F 70 18 84/55 L 100 10/30/18 14:00 10/30/18 14:00 10/30/18 14:00 10/30/18 14:00 10/30/18 14:00 Intake and Output: 10/30/18 10/30/18 06:59 18:59 Intake Total 240 480 Balance 240 480 - Medications Medications: Current Medications Aspirin (Ecotrin) 81 mg PO DAILY [facility] Last Admin: 10/30/18 10:02 Dose: 81 mg Duloxetine HCl (Cymbalta) 60 mg PO DAILY [facility] Last Admin: 10/28/18 09:37 Dose: 60 mg Enoxaparin Sodium (Lovenox) 40 mg SC DAILY [facility]; Protocol Last Admin: 10/30/18 10:02 Dose: 40 mg Famotidine (Pepcid) 20 mg PO DAILY [facility] Last Admin: 10/30/18 10:02 Dose: 20 mg Gabapentin (Neurontin) 1,200 mg PO TID [facility]; Protocol Last Admin: 10/30/18 14:27 Dose: 1,200 mg Ibuprofen (Motrin Tab) 600 mg PO Q6H PRN PRN Reason: Pain, moderate (4-7) Last Admin: 10/28/18 17:29 Dose: 600 mg Levalbuterol HCl (Xopenex) 0.63 mg IH [id number] PRN PRN Reason: Shortness of Breath Last Admin: 10/22/18 10:12 Dose: 0.63 mg Lidocaine (Lidoderm) 1 ea TD DAILY [facility] Last Admin: 10/30/18 10:04 Dose: 1 ea Lorazepam (Ativan) 2 mg IVP Q4H PRN; Protocol PRN Reason: Anxiety Last Admin: 10/29/18 22:18 Dose: 2 mg Montelukast Sodium (Singulair) 10 mg PO HS [facility] Last Admin: 10/27/18 21:16 Dose: 10 mg Multi-Ingredient Ointment (Prep-Hem) 0 ea TOP DAILY [facility] Last Admin: 10/30/18 11:43 Dose: 1 applic Ondansetron HCl (Zofran Inj) 4 mg IVP Q6H PRN PRN Reason: Nausea/Vomiting Last Admin: 10/27/18 15:28 Dose: 4 mg Pantoprazole Sodium (Protonix Ec Tab) 40 mg PO 0600 [facility] Last Admin: 10/28/18 05:16 Dose: 40 mg Polyethylene Glycol (Miralax) 17 gm PO BID [facility] Last Admin: 10/30/18 10:03 Dose: 17 gm Sennosides (Senokot Tab) 8.6 mg PO DAILY [facility] Last Admin: 10/30/18 10:03 Dose: Not Given Topiramate (Topamax) 150 mg PO DAILY CE; Protocol Last Admin: 10/26/18 10:17 Dose: 150 mg - Labs Labs: 10/30/18 06:30 10/30/18 06:30 PT 12.5 SECONDS (9.4-12.5) 10/29/18 10:35 INR 1.11 10/29/18 10:35 APTT 36.9 Seconds (26.9-38.3) 10/29/18 10:35 Attending/Attestation - Attestation I have personally seen and examined this patient.: Yes I have fully participated in the care of the patient.: Yes I have reviewed all pertinent clinical information, including history, physical exam and plan: Yes Notes (Text): 10/30/18 16:30 Patient was seen and examined with certified medical transcriptionist. 48 year old female with past medical history of CVA with residual left sided weakness, epilepsy, fibromyalgia presenting s/p seizure episode, - CT scan of head read shows possible tiny calcificationin left basal ganglia vs. artifact, MRI Brain: Showed no acute abnormalities.Patient topamax dose was increased but Patient developed transaiminitis , Etiology is likely due to medications..Topimax, protonix, duloxetine and singular on hold, as these medications thought to be leading to transaminitis. AST and ALT are decreasing.AST has come down from 618 to 483.ALT is mildly low from 680 to 666.We will continue monitoring GI evaluation is appreciated. IR is consulted for possible liver biopsy if LFT will not improve. Avoid hepatotoxic medication. Management plan was discussed in detail with patient. Education was provided
--- NOTE | 2018-10-30 16:54 | CP.PCM.PN ---
<Kaitlin Marx - Last Filed: 10/30/18 16:54> Subjective - Date & Time of Evaluation Date of Evaluation: 10/30/18 Time of Evaluation: 08:00 - Subjective Subjective: PGY5 GI Follow-up Pt seen and examined bedside Denies any abd pain tolerating diet denies any BM ROS: 12 point ROS conducted, neg other than above Objective - Vital Signs/Intake and Output Vital Signs (last 24 hours): Temp Pulse Resp BP Pulse Ox 97.6 F 70 18 84/55 L 100 10/30/18 14:00 10/30/18 14:00 10/30/18 14:00 10/30/18 14:00 10/30/18 14:00 Intake and Output: 10/30/18 10/30/18 06:59 18:59 Intake Total 240 480 Balance 240 480 - Medications Medications: Current Medications Aspirin (Ecotrin) 81 mg PO DAILY [facility] Last Admin: 10/30/18 10:02 Dose: 81 mg Duloxetine HCl (Cymbalta) 60 mg PO DAILY [facility] Last Admin: 10/28/18 09:37 Dose: 60 mg Enoxaparin Sodium (Lovenox) 40 mg SC DAILY [facility]; Protocol Last Admin: 10/30/18 10:02 Dose: 40 mg Famotidine (Pepcid) 20 mg PO DAILY [facility] Last Admin: 10/30/18 10:02 Dose: 20 mg Gabapentin (Neurontin) 1,200 mg PO TID [facility]; Protocol Last Admin: 10/30/18 14:27 Dose: 1,200 mg Ibuprofen (Motrin Tab) 600 mg PO Q6H PRN PRN Reason: Pain, moderate (4-7) Last Admin: 10/28/18 17:29 Dose: 600 mg Levalbuterol HCl (Xopenex) 0.63 mg IH [id number] PRN PRN Reason: Shortness of Breath Last Admin: 10/22/18 10:12 Dose: 0.63 mg Lidocaine (Lidoderm) 1 ea TD DAILY [facility] Last Admin: 10/30/18 10:04 Dose: 1 ea Lorazepam (Ativan) 2 mg IVP Q4H PRN; Protocol PRN Reason: Anxiety Last Admin: 10/29/18 22:18 Dose: 2 mg Montelukast Sodium (Singulair) 10 mg PO HS [facility] Last Admin: 10/27/18 21:16 Dose: 10 mg Multi-Ingredient Ointment (Prep-Hem) 0 ea TOP DAILY [facility] Last Admin: 10/30/18 11:43 Dose: 1 applic Ondansetron HCl (Zofran Inj) 4 mg IVP Q6H PRN PRN Reason: Nausea/Vomiting Last Admin: 10/27/18 15:28 Dose: 4 mg Pantoprazole Sodium (Protonix Ec Tab) 40 mg PO 0600 [facility] Last Admin: 10/28/18 05:16 Dose: 40 mg Polyethylene Glycol (Miralax) 17 gm PO BID [facility] Last Admin: 10/30/18 10:03 Dose: 17 gm Sennosides (Senokot Tab) 8.6 mg PO DAILY [facility] Last Admin: 10/30/18 10:03 Dose: Not Given Topiramate (Topamax) 150 mg PO DAILY [facility]; Protocol Last Admin: 10/26/18 10:17 Dose: 150 mg - Labs Labs: 10/30/18 06:30 10/30/18 06:30 PT 12.5 SECONDS (9.4-12.5) 10/29/18 10:35 INR 1.11 10/29/18 10:35 APTT 36.9 Seconds (26.9-38.3) 10/29/18 10:35 - Constitutional Appears: Well, No Acute Distress - Head Exam Head Exam: ATRAUMATIC, NORMOCEPHALIC - Eye Exam Eye Exam: Normal appearance - ENT Exam ENT Exam: Mucous Membranes Moist, Normal Exam - Neck Exam Neck Exam: Normal Inspection - Respiratory Exam Respiratory Exam: Clear to Ausculation Bilateral, NORMAL BREATHING PATTERN. absent: Rales, Rhonchi, Wheezes, Respiratory Distress - Cardiovascular Exam Cardiovascular Exam: REGULAR RHYTHM, +S1, +S2 - GI/Abdominal Exam GI & Abdominal Exam: Soft, Normal Bowel Sounds. absent: Distended, Firm, Guarding, Rigid, Tenderness, Mass, Organomegaly, Rebound - Extremities Exam Extremities Exam: absent: Joint Swelling, Pedal Edema - Neurological Exam Neurological Exam: Alert, Awake, Oriented x3 - Psychiatric Exam Psychiatric exam: Normal Affect, Normal Mood - Skin Skin Exam: Dry, Intact, Normal Color, Warm Assessment and Plan - Assessment and Plan (Free Text) Assessment: #elevated liver tests #NAFLD #Seizure disorder #Gastric sleeve 2009 #Hiatal hernia repair Plan: the elevated liver enzymes are a hepatocellular pattern and may be reactive to seizures/antiepileptic medications in setting of NAFLD, ?KELLOGG. -Liver biospy pending, 2/2 waxing and waning of LFTs No signs or symptoms of acute liver failure. ultrasound reviewedfatty liver, CBD 8.3, good hepatopedal blood flow -U/S duplex negative for liver vascular disease Workup for other sources of liver disease with significant family history pending. -Viral Hep panel, Autoimmune, iron, wilsons, RPR w/u negative D/W Dr. Cox <Lucho Cox - Last Filed: 10/31/18 16:48> Objective - Vital Signs/Intake and Output Vital Signs (last 24 hours): Temp Pulse Resp BP Pulse Ox 98.2 F 83 20 94/6 L 99 10/31/18 12:00 10/31/18 12:00 10/31/18 12:00 10/31/18 12:00 10/31/18 12:00 Intake and Output: 10/31/18 10/31/18 06:59 18:59 Intake Total 620 Balance 620 - Medications Medications: Current Medications Aspirin (Ecotrin) 81 mg PO DAILY [facility] Last Admin: 10/31/18 09:21 Dose: 81 mg Duloxetine HCl (Cymbalta) 60 mg PO DAILY [facility] Last Admin: 10/28/18 09:37 Dose: 60 mg Emollient Ointment (Vaseline Oint) 0 gm TOP BID PRN PRN Reason: Dry skin Enoxaparin Sodium (Lovenox) 40 mg SC DAILY [facility]; Protocol Last Admin: 10/31/18 09:21 Dose: 40 mg Famotidine (Pepcid) 20 mg PO DAILY [facility] Last Admin: 10/31/18 09:21 Dose: 20 mg Gabapentin (Neurontin) 1,200 mg PO TID [facility]; Protocol Last Admin: 10/31/18 14:52 Dose: 1,200 mg Hydrocortisone (Anusol-Hc) 0 gm SD BID [facility] Last Admin: 10/31/18 12:06 Dose: Not Given Ibuprofen (Motrin Tab) 600 mg PO Q6H PRN PRN Reason: Pain, moderate (4-7) Last Admin: 10/28/18 17:29 Dose: 600 mg Levalbuterol HCl (Xopenex) 0.63 mg IH [id number] PRN PRN Reason: Shortness of Breath Last Admin: 10/22/18 10:12 Dose: 0.63 mg Lidocaine (Lidoderm) 1 ea TD DAILY [facility] Last Admin: 10/31/18 09:21 Dose: 1 ea Lorazepam (Ativan) 2 mg IVP Q4H PRN; Protocol PRN Reason: Anxiety Last Admin: 10/30/18 23:15 Dose: 2 mg Montelukast Sodium (Singulair) 10 mg PO HS [facility] Last Admin: 10/27/18 21:16 Dose: 10 mg Multi-Ingredient Ointment (Prep-Hem) 0 ea TOP DAILY [facility] Last Admin: 10/31/18 09:22 Dose: 1 applic Ondansetron HCl (Zofran Inj) 4 mg IVP Q6H PRN PRN Reason: Nausea/Vomiting Last Admin: 10/27/18 15:28 Dose: 4 mg Pantoprazole Sodium (Protonix Ec Tab) 40 mg PO 0600 [facility] Last Admin: 10/28/18 05:16 Dose: 40 mg Polyethylene Glycol (Miralax) 17 gm PO BID [facility] Last Admin: 10/31/18 09:21 Dose: 17 gm Sennosides (Senokot Tab) 8.6 mg PO DAILY [facility] Last Admin: 10/31/18 09:22 Dose: Not Given Topiramate (Topamax) 150 mg PO DAILY [facility]; Protocol Last Admin: 10/26/18 10:17 Dose: 150 mg - Labs Labs: 10/31/18 07:00 10/31/18 07:00 PT 12.5 SECONDS (9.4-12.5) 10/29/18 10:35 INR 1.11 10/29/18 10:35 APTT 36.9 Seconds (26.9-38.3) 10/29/18 10:35 Attending/Attestation - Attestation I have personally seen and examined this patient.: Yes I have fully participated in the care of the patient.: Yes I have reviewed all pertinent clinical information, including history, physical exam and plan: Yes Notes (Text): 10/31/18 16:48 Late entry The pt was seen and examined on Thursday. Chart was reviewed. Findings assessment and recommendations were discussed with Dr. Marx and documented above.
[2018-10-31] MEDS ORDERED: Petrolatum Oint Foilpak (5 gm) TOP PRN (07:19)
[2018-10-31 07:38] LABS: BASO # 0.03 K/mm3 (0.0-2.0); BASO % 0.7 % (0.0-3.0); EOS # 0.3 (0.0-0.7); EOS % 5.9 % (1.5-5.0); HEMOGLOBIN 12.2 g/dL (12.0-16.0); LYMPH # 1.4 (1.2-3.4); LYMPH % 32.5 % (22.0-35.0); MEAN CELL VOLUME 87.3 fl (80.0-105.0); MEAN CORPUSCULAR HEMOGLOBIN 26.7 pg (25.0-35.0); MEAN CORPUSCULAR HGB CONC 30.6 g/dl (31.0-37.0); MEAN PLATELET VOLUME 12.6 fl (7.0-11.0); MONO # 0.3 (0.1-0.6); MONO % 7.7 % (1.0-6.0); RBC 4.57 10^6/uL (3.5-6.1); RED CELL DISTRIBUTION WIDTH 23.5 % (11.5-14.5); WHITE BLOOD COUNT 4.4 10^3/uL (4.5-11.0)
[2018-10-31 07:58] LABS: ALB/GLOB RATIO 1.1 (1.1-1.8); ALBUMIN 3.9 g/dL (3.0-4.8); ALT/SGPT 887 U/L (7-56); AST/SGOT 776 U/L (14-36); BLOOD UREA NITROGEN 21 mg/dL (7-21); CALCIUM 9.6 mg/dL (8.4-10.5); GFR NON-AFRICAN AMERICAN > 60
[2018-10-31] MEDS: Enoxaparin 40 mg Syringe SC SCH (09:21)
[2018-10-31] MEDS: POLYETHYLENE GLYCOL 3350 17 GM/Dose PACKET PO SCH ×2 (09:21→17:56)
[2018-10-31] MEDS: Lidocaine 5% Patch TD SCH (09:21)
[2018-10-31] MEDS: Hemorrohoidal Ointment (2 oz) TOP SCH (09:22)
[2018-10-31] MEDS: Hydrocortisone 2.5% Rectal Cream(30 gm) PR SCH ×2 (12:06→17:54)
--- NOTE | 2018-10-31 15:34 | CP.PCM.PN ---
Subjective - Date & Time of Evaluation Date of Evaluation: 10/31/18 Time of Evaluation: 11:00 - Subjective Subjective: INTERNAL MEDICINE PROGRESS NOTE Angel Everton PGY1 Pt seen and examined at bedside this am. No acute events overnight. She continues to report hemorrhoidal pain and abdominal soreness. Otherwise denies 12 point ROS Objective - Vital Signs/Intake and Output Vital Signs (last 24 hours): Temp Pulse Resp BP Pulse Ox 98.2 F 80 16 112/72 100 10/31/18 06:00 10/31/18 06:00 10/31/18 06:00 10/31/18 06:00 10/31/18 06:00 Intake and Output: 10/31/18 10/31/18 06:59 18:59 Intake Total 620 Balance 620 - Medications Medications: Current Medications Aspirin (Ecotrin) 81 mg PO DAILY [facility] Last Admin: 10/31/18 09:21 Dose: 81 mg Duloxetine HCl (Cymbalta) 60 mg PO DAILY [facility] Last Admin: 10/28/18 09:37 Dose: 60 mg Emollient Ointment (Vaseline Oint) 0 gm TOP BID PRN PRN Reason: Dry skin Enoxaparin Sodium (Lovenox) 40 mg SC DAILY [facility]; Protocol Last Admin: 10/31/18 09:21 Dose: 40 mg Famotidine (Pepcid) 20 mg PO DAILY [facility] Last Admin: 10/31/18 09:21 Dose: 20 mg Gabapentin (Neurontin) 1,200 mg PO TID [facility]; Protocol Last Admin: 10/31/18 14:52 Dose: 1,200 mg Hydrocortisone (Anusol-Hc) 0 gm DE BID [facility] Last Admin: 10/31/18 12:06 Dose: Not Given Ibuprofen (Motrin Tab) 600 mg PO Q6H PRN PRN Reason: Pain, moderate (4-7) Last Admin: 10/28/18 17:29 Dose: 600 mg Levalbuterol HCl (Xopenex) 0.63 mg IH [id number] PRN PRN Reason: Shortness of Breath Last Admin: 10/22/18 10:12 Dose: 0.63 mg Lidocaine (Lidoderm) 1 ea TD DAILY [facility] Last Admin: 10/31/18 09:21 Dose: 1 ea Lorazepam (Ativan) 2 mg IVP Q4H PRN; Protocol PRN Reason: Anxiety Last Admin: 10/30/18 23:15 Dose: 2 mg Montelukast Sodium (Singulair) 10 mg PO HS [facility] Last Admin: 10/27/18 21:16 Dose: 10 mg Multi-Ingredient Ointment (Prep-Hem) 0 ea TOP DAILY [facility] Last Admin: 10/31/18 09:22 Dose: 1 applic Ondansetron HCl (Zofran Inj) 4 mg IVP Q6H PRN PRN Reason: Nausea/Vomiting Last Admin: 10/27/18 15:28 Dose: 4 mg Pantoprazole Sodium (Protonix Ec Tab) 40 mg PO 0600 [facility] Last Admin: 10/28/18 05:16 Dose: 40 mg Polyethylene Glycol (Miralax) 17 gm PO BID [facility] Last Admin: 10/31/18 09:21 Dose: 17 gm Sennosides (Senokot Tab) 8.6 mg PO DAILY [facility] Last Admin: 10/31/18 09:22 Dose: Not Given Topiramate (Topamax) 150 mg PO DAILY [facility]; Protocol Last Admin: 10/26/18 10:17 Dose: 150 mg - Labs Labs: 10/31/18 07:00 10/31/18 07:00 PT 12.5 SECONDS (9.4-12.5) 10/29/18 10:35 INR 1.11 10/29/18 10:35 APTT 36.9 Seconds (26.9-38.3) 10/29/18 10:35 - Constitutional Appears: Non-toxic, No Acute Distress - Head Exam Head Exam: ATRAUMATIC, NORMAL INSPECTION, NORMOCEPHALIC - Eye Exam Eye Exam: EOMI, Normal appearance, PERRL - Respiratory Exam Respiratory Exam: Clear to Ausculation Bilateral, NORMAL BREATHING PATTERN. absent: Accessory Muscle Use, Rales, Rhonchi, Wheezes, Respiratory Distress, Stridor - Cardiovascular Exam Cardiovascular Exam: RRR, +S1, +S2. absent: Gallop, Rubs - GI/Abdominal Exam GI & Abdominal Exam: Soft, Normal Bowel Sounds, Tenderness (present in the RUQ upon palpation). absent: Firm, Guarding - Extremities Exam Extremities Exam: Normal Capillary Refill, Normal Inspection - Back Exam Back Exam: NORMAL INSPECTION. absent: CVA tenderness (L), CVA tenderness (R) - Neurological Exam Neurological Exam: Alert, Awake, Oriented x 3 Additional comments: LLE weakness noted, chronic 2/2 old CVA. - Psychiatric Exam Psychiatric exam: Flat Affect - Skin Skin Exam: Dry, Normal Color, Warm Assessment and Plan - Assessment and Plan (Free Text) Assessment: 48 year old female with past medical history of CVA with residual left sided weakness, epilepsy, fibromyalgia presenting s/p seizure episode, also complaining of chest pain. Hospital stay complicated by transaminitis. Plan: Transaminitis: - Continues to uptrending. Possible hepatotoxic medications have been on hold - Plan for liver biopsy on 11/01 with Interventional Radiology. NPO after midnight - Topimax, protonix, duloxetine and singular on hold, as these medications thought to be leading to transaminitis - Abd US showed hepatic steatosis without focal liver abnormality - Will discuss with Neuro, if related to any increase in medication - GI consulted, Dr. Martinez, recs appreciated - Will continue to monitor and avoid hepatotoxic medications Seizure - CT head prelim read shows possible tiny petechial hemorrhage in left basal ganglia vs. artifact - Ativan PRN - for seizures - EEG - awaiting report - Seizure/aspiration precautions - Neurology consulted, rec appreciated - holding home topamax to elevated LFTs - Gabapentin 1200 TID per neuro - Repeat CT head - Showed no interval change from previous study. - MRI Brain: Showed no acute abnormalities - PT - recommend TCU Atypical chest pain: Resolved - Troponin negx3 - ECHO from 09/2018 shows EF 60-65% - EKG - NSR HR @ 67 - TSH: 3.09 - ASA 81 mg PO daily - Oxygen NC - Cardiology consulted, recommended outpt follow up for cath Constipation: Resolved - continue miralax/senna - Cont to monitor External Hemorrhoid - will continue hemorrhoid ointment today Elevated d-dimer - V/Q scan (-) for PE PPX - Pepcid, Lovenox SC Case reviewed with Dr. Vanessa Toscano
[2018-11-01 08:10] LABS: BASO # 0.02 K/mm3 (0.0-2.0); BASO % 0.5 % (0.0-3.0); EOS # 0.2 (0.0-0.7); EOS % 5.5 % (1.5-5.0); HEMOGLOBIN 11.2 g/dL (12.0-16.0); LYMPH # 1.9 (1.2-3.4); LYMPH % 44.4 % (22.0-35.0); MEAN CELL VOLUME 86.5 fl (80.0-105.0); MEAN CORPUSCULAR HEMOGLOBIN 26.9 pg (25.0-35.0); MEAN CORPUSCULAR HGB CONC 31.1 g/dl (31.0-37.0); MEAN PLATELET VOLUME 11.8 fl (7.0-11.0); MONO # 0.3 (0.1-0.6); MONO % 6.7 % (1.0-6.0); RBC 4.16 10^6/uL (3.5-6.1); RED CELL DISTRIBUTION WIDTH 23.3 % (11.5-14.5); WHITE BLOOD COUNT 4.4 10^3/uL (4.5-11.0)
[2018-11-01 08:34] LABS: ALB/GLOB RATIO 1.2 (1.1-1.8); ALBUMIN 3.9 g/dL (3.0-4.8); ALT/SGPT 878 U/L (7-56); AST/SGOT 684 U/L (14-36); BLOOD UREA NITROGEN 20 mg/dL (7-21); CALCIUM 9.1 mg/dL (8.4-10.5); GFR NON-AFRICAN AMERICAN > 60
--- NOTE | 2018-11-01 08:42 | CP.PCM.PN ---
<FlodaniavirginiaDevon - Last Filed: 11/01/18 10:32> Subjective - Date & Time of Evaluation Date of Evaluation: 11/01/18 Time of Evaluation: 08:40 - Subjective Subjective: Patient is to have liver biopsy today, discussed with nursing staff. Otherwise, no acute events. No complaints. 5pt ROS negative except for above. Objective - Vital Signs/Intake and Output Vital Signs (last 24 hours): Temp Pulse Resp BP Pulse Ox 98 F 72 16 101/63 98 11/01/18 06:00 11/01/18 06:00 11/01/18 06:00 11/01/18 06:00 11/01/18 06:00 - Medications Medications: Current Medications Aspirin (Ecotrin) 81 mg PO DAILY [facility] Last Admin: 10/31/18 09:21 Dose: 81 mg Duloxetine HCl (Cymbalta) 60 mg PO DAILY [facility] Last Admin: 10/28/18 09:37 Dose: 60 mg Emollient Ointment (Vaseline Oint) 0 gm TOP BID PRN PRN Reason: Dry skin Enoxaparin Sodium (Lovenox) 40 mg SC DAILY [facility]; Protocol Last Admin: 10/31/18 09:21 Dose: 40 mg Famotidine (Pepcid) 20 mg PO DAILY [facility] Last Admin: 10/31/18 09:21 Dose: 20 mg Gabapentin (Neurontin) 1,200 mg PO TID [facility]; Protocol Last Admin: 10/31/18 17:58 Dose: 1,200 mg Hydrocortisone (Anusol-Hc) 0 gm [place] BID [facility] Last Admin: 10/31/18 17:54 Dose: 1 applic Ibuprofen (Motrin Tab) 600 mg PO Q6H PRN PRN Reason: Pain, moderate (4-7) Last Admin: 10/28/18 17:29 Dose: 600 mg Levalbuterol HCl (Xopenex) 0.63 mg IH [id number] PRN PRN Reason: Shortness of Breath Last Admin: 10/22/18 10:12 Dose: 0.63 mg Lidocaine (Lidoderm) 1 ea TD DAILY [facility] Last Admin: 10/31/18 09:21 Dose: 1 ea Lorazepam (Ativan) 2 mg IVP Q4H PRN; Protocol PRN Reason: Anxiety Last Admin: 10/30/18 23:15 Dose: 2 mg Montelukast Sodium (Singulair) 10 mg PO HS [facility] Last Admin: 10/27/18 21:16 Dose: 10 mg Multi-Ingredient Ointment (Prep-Hem) 0 ea TOP DAILY [facility] Last Admin: 10/31/18 09:22 Dose: 1 applic Ondansetron HCl (Zofran Inj) 4 mg IVP Q6H PRN PRN Reason: Nausea/Vomiting Last Admin: 10/27/18 15:28 Dose: 4 mg Pantoprazole Sodium (Protonix Ec Tab) 40 mg PO 0600 [facility] Last Admin: 10/28/18 05:16 Dose: 40 mg Polyethylene Glycol (Miralax) 17 gm PO BID [facility] Last Admin: 10/31/18 17:56 Dose: Not Given Sennosides (Senokot Tab) 8.6 mg PO DAILY [facility] Last Admin: 10/31/18 09:22 Dose: Not Given Topiramate (Topamax) 150 mg PO DAILY [facility]; Protocol Last Admin: 10/26/18 10:17 Dose: 150 mg - Labs Labs: 11/01/18 07:45 11/01/18 07:45 PT 12.5 SECONDS (9.4-12.5) 10/29/18 10:35 INR 1.11 10/29/18 10:35 APTT 36.9 Seconds (26.9-38.3) 10/29/18 10:35 - Constitutional Appears: Non-toxic, No Acute Distress - Head Exam Head Exam: ATRAUMATIC, NORMAL INSPECTION - ENT Exam ENT Exam: Mucous Membranes Moist, Normal Exam - Respiratory Exam Respiratory Exam: Clear to Ausculation Bilateral, NORMAL BREATHING PATTERN - Cardiovascular Exam Cardiovascular Exam: REGULAR RHYTHM, +S1, +S2 - GI/Abdominal Exam GI & Abdominal Exam: Soft, Normal Bowel Sounds. absent: Tenderness - Extremities Exam Extremities Exam: Normal Inspection. absent: Pedal Edema - Neurological Exam Neurological Exam: Alert, Awake, Oriented x3 - Skin Skin Exam: Normal Color, Warm Assessment and Plan - Assessment and Plan (Free Text) Assessment: #elevated liver tests #NAFLD #Seizure disorder #Gastric sleeve 2009 #Hiatal hernia repair Plan: the elevated liver enzymes are a hepatocellular pattern and may be reactive to seizures/antiepileptic medications in setting of NAFLD, ?KELLOGG. -Liver biospy pending, 2/2 waxing and waning of LFTs -Consider changing antiepileptic medications, recommend neurology involvement No signs or symptoms of acute liver failure. ultrasound reviewedfatty liver, CBD 8.3, good hepatopedal blood flow -U/S duplex negative for liver vascular disease Workup for other sources of liver disease with significant family history pending. -Viral Hep panel, Autoimmune, iron, wilsons, RPR w/u negative Discussed with Dr. Burns, see attestation. <Teressa Burns - Last Filed: 11/01/18 11:01> Objective - Vital Signs/Intake and Output Vital Signs (last 24 hours): Temp Pulse Resp BP Pulse Ox 98 F 72 16 101/63 98 11/01/18 06:00 11/01/18 06:00 11/01/18 06:00 11/01/18 06:00 11/01/18 06:00 - Medications Medications: Current Medications Aspirin (Ecotrin) 81 mg PO DAILY [facility] Last Admin: 10/31/18 09:21 Dose: 81 mg Duloxetine HCl (Cymbalta) 60 mg PO DAILY [facility] Last Admin: 10/28/18 09:37 Dose: 60 mg Emollient Ointment (Vaseline Oint) 0 gm TOP BID PRN PRN Reason: Dry skin Enoxaparin Sodium (Lovenox) 40 mg SC DAILY [facility]; Protocol Last Admin: 10/31/18 09:21 Dose: 40 mg Famotidine (Pepcid) 20 mg PO DAILY [facility] Last Admin: 11/01/18 10:13 Dose: Not Given Gabapentin (Neurontin) 1,200 mg PO TID [facility]; Protocol Last Admin: 11/01/18 10:13 Dose: Not Given Hydrocortisone (Anusol-Hc) 0 gm [place] BID [facility] Last Admin: 11/01/18 10:12 Dose: 1 applic Ibuprofen (Motrin Tab) 600 mg PO Q6H PRN PRN Reason: Pain, moderate (4-7) Last Admin: 10/28/18 17:29 Dose: 600 mg Levalbuterol HCl (Xopenex) 0.63 mg IH [id number] PRN PRN Reason: Shortness of Breath Last Admin: 10/22/18 10:12 Dose: 0.63 mg Lidocaine (Lidoderm) 1 ea TD DAILY [facility] Last Admin: 11/01/18 10:12 Dose: 1 ea Lorazepam (Ativan) 2 mg IVP Q4H PRN; Protocol PRN Reason: Anxiety Last Admin: 10/30/18 23:15 Dose: 2 mg Montelukast Sodium (Singulair) 10 mg PO HS [facility] Last Admin: 10/27/18 21:16 Dose: 10 mg Multi-Ingredient Ointment (Prep-Hem) 0 ea TOP DAILY [facility] Last Admin: 11/01/18 10:14 Dose: 1 applic Ondansetron HCl (Zofran Inj) 4 mg IVP Q6H PRN PRN Reason: Nausea/Vomiting Last Admin: 10/27/18 15:28 Dose: 4 mg Pantoprazole Sodium (Protonix Ec Tab) 40 mg PO 0600 [facility] Last Admin: 10/28/18 05:16 Dose: 40 mg Polyethylene Glycol (Miralax) 17 gm PO BID [facility] Last Admin: 11/01/18 10:13 Dose: Not Given Sennosides (Senokot Tab) 8.6 mg PO DAILY [facility] Last Admin: 11/01/18 10:13 Dose: Not Given Topiramate (Topamax) 150 mg PO DAILY [facility]; Protocol Last Admin: 10/26/18 10:17 Dose: 150 mg - Labs Labs: 11/01/18 07:45 11/01/18 07:45 PT 12.5 SECONDS (9.4-12.5) 10/29/18 10:35 INR 1.11 10/29/18 10:35 APTT 36.9 Seconds (26.9-38.3) 10/29/18 10:35 Attending/Attestation - Attestation I have personally seen and examined this patient.: Yes I have fully participated in the care of the patient.: Yes I have reviewed all pertinent clinical information, including history, physical exam and plan: Yes Notes (Text): 11/01/18 10:51 I have seen and examined the patient with the GI fellow. In brief, this is a 48 yo F with obesity s/p sleeve gastrectomy (2010), s/p hiatal hernia repair, s/p lap dorian, fibromyalgia and presumed seizure disorder though noted to not be on adequate seizure meds at home p/w seizure like activity with subsequent significant increase in LFTs. Tbili ok. Pt was initially started on Topamax, but then d/job by neuro as there was some thought it may be contributing to abnormal LFTs. Autoimmune studies, hepatitis studies neg. Noted to have some fatty liver on imaging. Grandfather with possible underlying liver dz, but unclear. Pt notes that she had elevated LFTs to the 1000s in the past and was thought to be 2/2 Topamax. Two tabs of Tylenol or ibuprofen 800 mg po daily for miscellaneous pains. Currently, denies any complaints. Denies any herbal supplements. Scheduled for liver bx today. Abdomen: soft, nt, nd, vertical surgical scar Plan: -plan for IR guided liver bx today -no evidence of synthetic dysfunction -agree with neuro in holding Topamax -would avoid NSAIDs as well as Tylenol 11/01/18 10:57
--- NOTE | 2018-11-01 08:56 | CP.PCM.PN ---
<HusseinNestor - Last Filed: 11/01/18 11:17> Subjective - Date & Time of Evaluation Date of Evaluation: 11/01/18 Time of Evaluation: 08:54 - Subjective Subjective: Medicine Progress Note for Dr. Chanel 48F seen and evaluated at bedside this morning. No acute events overnight. Patient continues to have RUQ discomfort, the patch is helping with pain. Denies f/c n/v/d, SOB, CP, or urinary symptoms. Objective - Vital Signs/Intake and Output Vital Signs (last 24 hours): Temp Pulse Resp BP Pulse Ox 98 F 72 16 101/63 98 11/01/18 06:00 11/01/18 06:00 11/01/18 06:00 11/01/18 06:00 11/01/18 06:00 - Medications Medications: Current Medications Aspirin (Ecotrin) 81 mg PO DAILY [facility] Last Admin: 10/31/18 09:21 Dose: 81 mg Duloxetine HCl (Cymbalta) 60 mg PO DAILY [facility] Last Admin: 10/28/18 09:37 Dose: 60 mg Emollient Ointment (Vaseline Oint) 0 gm TOP BID PRN PRN Reason: Dry skin Enoxaparin Sodium (Lovenox) 40 mg SC DAILY [facility]; Protocol Last Admin: 10/31/18 09:21 Dose: 40 mg Famotidine (Pepcid) 20 mg PO DAILY [facility] Last Admin: 10/31/18 09:21 Dose: 20 mg Gabapentin (Neurontin) 1,200 mg PO TID [facility]; Protocol Last Admin: 10/31/18 17:58 Dose: 1,200 mg Hydrocortisone (Anusol-Hc) 0 gm ND BID [facility] Last Admin: 10/31/18 17:54 Dose: 1 applic Ibuprofen (Motrin Tab) 600 mg PO Q6H PRN PRN Reason: Pain, moderate (4-7) Last Admin: 10/28/18 17:29 Dose: 600 mg Levalbuterol HCl (Xopenex) 0.63 mg IH [id number] PRN PRN Reason: Shortness of Breath Last Admin: 10/22/18 10:12 Dose: 0.63 mg Lidocaine (Lidoderm) 1 ea TD DAILY [facility] Last Admin: 10/31/18 09:21 Dose: 1 ea Lorazepam (Ativan) 2 mg IVP Q4H PRN; Protocol PRN Reason: Anxiety Last Admin: 10/30/18 23:15 Dose: 2 mg Montelukast Sodium (Singulair) 10 mg PO HS [facility] Last Admin: 10/27/18 21:16 Dose: 10 mg Multi-Ingredient Ointment (Prep-Hem) 0 ea TOP DAILY [facility] Last Admin: 10/31/18 09:22 Dose: 1 applic Ondansetron HCl (Zofran Inj) 4 mg IVP Q6H PRN PRN Reason: Nausea/Vomiting Last Admin: 10/27/18 15:28 Dose: 4 mg Pantoprazole Sodium (Protonix Ec Tab) 40 mg PO 0600 [facility] Last Admin: 10/28/18 05:16 Dose: 40 mg Polyethylene Glycol (Miralax) 17 gm PO BID [facility] Last Admin: 10/31/18 17:56 Dose: Not Given Sennosides (Senokot Tab) 8.6 mg PO DAILY [facility] Last Admin: 10/31/18 09:22 Dose: Not Given Topiramate (Topamax) 150 mg PO DAILY [facility]; Protocol Last Admin: 10/26/18 10:17 Dose: 150 mg - Labs Labs: 11/01/18 07:45 11/01/18 07:45 PT 12.5 SECONDS (9.4-12.5) 10/29/18 10:35 INR 1.11 10/29/18 10:35 APTT 36.9 Seconds (26.9-38.3) 10/29/18 10:35 - Constitutional Appears: Well, Non-toxic, No Acute Distress - Head Exam Head Exam: ATRAUMATIC, NORMAL INSPECTION, NORMOCEPHALIC - Eye Exam Eye Exam: EOMI - ENT Exam ENT Exam: Mucous Membranes Moist - Respiratory Exam Respiratory Exam: NORMAL BREATHING PATTERN. absent: Wheezes, Respiratory Distress - Cardiovascular Exam Cardiovascular Exam: REGULAR RHYTHM. absent: Tachycardia - GI/Abdominal Exam GI & Abdominal Exam: Soft, Tenderness, Normal Bowel Sounds. absent: Distended, Guarding, Mass, Rebound - Extremities Exam Extremities Exam: absent: Pedal Edema, Tenderness - Neurological Exam Neurological Exam: Alert, Awake, Oriented x3 - Psychiatric Exam Psychiatric exam: Normal Affect, Normal Mood - Skin Skin Exam: Dry, Intact, Normal Color, Warm Assessment and Plan - Assessment and Plan (Free Text) Assessment: 48 year old female with past medical history of CVA with residual left sided weakness, epilepsy, and fibromyalgia, presenting s/p seizure episode. Hospital stay complicated by worsening transaminitis. Plan: Transaminitis - Mild decrease in LFTs today - Possibly 2/2 hepatotoxic medications which are on hold - Topimax, protonix, duloxetine and singular on hold, as these medications thought to be leading to transaminitis - Abd US showed hepatic steatosis without focal liver abnormality - Will continue to monitor and avoid hepatotoxic medications - GI consulted, Dr. Martinez/[facility] workup pending - Plan for liver biopsy Today, 4PM with Interventional Radiology; NPO after midnight Seizure - CT head 10/21: possible tiny punctate petechial hemorrhage in left basal ganglia vs. artifact - Repeat CT head 10/23: no interval change from previous study - MRI Brain 10/26: no acute abnormalities - Ativan PRN - EEG - awaiting report - Seizure/aspiration precautions - Holding home topamax 2/2 elevated LFTs - Gabapentin 1200 TID per neuro - Neurology following Atypical chest pain, resolved - Troponin negx3 - ECHO from 09/2018 shows EF 60-65% - EKG: NSR HR 67 - TSH: 3.09 - ASA 81 mg PO daily - Oxygen NC - Cardiology: recommended outpt follow up for cath Constipation, resolved - Continue miralax/senna External Hemorrhoid - Will continue hemorrhoid ointment as needed Elevated d-dimer - V/Q scan (-) for PE - Lovenox for DVT PPX PPX GI: Pepcid DVT: Lovenox Dispo: TCU once biopsy completed and LFTs stabilized Patient plan reviewed and discussed with Dr. Yanique Savage PGY1 <Tia Chanel - Last Filed: 11/01/18 12:21> Objective - Vital Signs/Intake and Output Vital Signs (last 24 hours): Temp Pulse Resp BP Pulse Ox 98 F 72 16 101/63 98 11/01/18 06:00 11/01/18 06:00 11/01/18 06:00 11/01/18 06:00 11/01/18 06:00 - Medications Medications: Current Medications Aspirin (Ecotrin) 81 mg PO DAILY [facility] Last Admin: 11/01/18 11:16 Dose: Not Given Duloxetine HCl (Cymbalta) 60 mg PO DAILY [facility] Last Admin: 10/28/18 09:37 Dose: 60 mg Emollient Ointment (Vaseline Oint) 0 gm TOP BID PRN PRN Reason: Dry skin Enoxaparin Sodium (Lovenox) 40 mg SC DAILY [facility]; Protocol Last Admin: 10/31/18 09:21 Dose: 40 mg Famotidine (Pepcid) 20 mg PO DAILY [facility] Last Admin: 11/01/18 10:13 Dose: Not Given Gabapentin (Neurontin) 1,200 mg PO TID [facility]; Protocol Last Admin: 11/01/18 10:13 Dose: Not Given Hydrocortisone (Anusol-Hc) 0 gm ND BID [facility] Last Admin: 11/01/18 10:12 Dose: 1 applic Ibuprofen (Motrin Tab) 600 mg PO Q6H PRN PRN Reason: Pain, moderate (4-7) Last Admin: 10/28/18 17:29 Dose: 600 mg Levalbuterol HCl (Xopenex) 0.63 mg IH [id number] PRN PRN Reason: Shortness of Breath Last Admin: 10/22/18 10:12 Dose: 0.63 mg Lidocaine (Lidoderm) 1 ea TD DAILY [facility] Last Admin: 11/01/18 10:12 Dose: 1 ea Lorazepam (Ativan) 2 mg IVP Q4H PRN; Protocol PRN Reason: Anxiety Last Admin: 10/30/18 23:15 Dose: 2 mg Montelukast Sodium (Singulair) 10 mg PO HS [facility] Last Admin: 10/27/18 21:16 Dose: 10 mg Multi-Ingredient Ointment (Prep-Hem) 0 ea TOP DAILY [facility] Last Admin: 11/01/18 10:14 Dose: 1 applic Ondansetron HCl (Zofran Inj) 4 mg IVP Q6H PRN PRN Reason: Nausea/Vomiting Last Admin: 10/27/18 15:28 Dose: 4 mg Pantoprazole Sodium (Protonix Ec Tab) 40 mg PO 0600 [facility] Last Admin: 10/28/18 05:16 Dose: 40 mg Polyethylene Glycol (Miralax) 17 gm PO BID [facility] Last Admin: 11/01/18 10:13 Dose: Not Given Sennosides (Senokot Tab) 8.6 mg PO DAILY [facility] Last Admin: 11/01/18 10:13 Dose: Not Given Topiramate (Topamax) 150 mg PO DAILY [facility]; Protocol Last Admin: 10/26/18 10:17 Dose: 150 mg - Labs Labs: 11/01/18 07:45 11/01/18 07:45 PT 12.5 SECONDS (9.4-12.5) 10/29/18 10:35 INR 1.11 10/29/18 10:35 APTT 36.9 Seconds (26.9-38.3) 10/29/18 10:35 Attending/Attestation - Attestation I have personally seen and examined this patient.: Yes I have fully participated in the care of the patient.: Yes I have reviewed all pertinent clinical information, including history, physical exam and plan: Yes Notes (Text): 11/01/18 12:16 48 year old female with past medical history of CVA with residual left sided weakness, epilepsy, and fibromyalgia who presented after seizure episode. CT head and MRI brain reviewed as above. Neurology has been following and patient is on gabapentin. She was also on topamax which is on hold due to elevated LFTs. GI is also following for transaminitis. Plan is for liver biopsy. Abdominal ultrasound showed hepatic steatosis. Hepatitis panel was negative. She also initially complained of chest pain. Serial cardiac enzymes have been negative. Cardiology has recommended outpatient cardiac cath. PT is following and recommended TCU. Tia Chanel MD Hospitalist.
[2018-11-01] MEDS: Hydrocortisone 2.5% Rectal Cream(30 gm) PR SCH ×2 (10:12→18:24)
[2018-11-01] MEDS: Lidocaine 5% Patch TD SCH ×2 (10:12→11:00)
[2018-11-01] MEDS: POLYETHYLENE GLYCOL 3350 17 GM/Dose PACKET PO SCH ×2 (10:13→18:24)
[2018-11-01] MEDS: Hemorrohoidal Ointment (2 oz) TOP SCH (10:14)
[2018-11-01] MEDS ORDERED: Lidocaine 1% Inj (20ml) ONE (11:30)
[2018-11-01] MEDS ORDERED: Midazolam 2 MG/2 ML VIAL ONE (11:58)
[2018-11-01] MEDS ORDERED: Midazolam 2 MG/2 ML VIAL IVP ONE (12:18)
[2018-11-01] MEDS ORDERED: Sodium Chloride 0.45% 1,000 ML IV SCH (12:30)
--- NOTE | 2018-11-01 20:13 | CT ---
PROCEDURE: CT guided liver biopsy. HISTORY: Abnormal liver function test. Previous bariatric surgery. Fatty liver. Evaluate for KELLOGG PHYSICIAN(S): Mina David MD. TECHNIQUE: The relative risks and indications of the procedure were explained to the patient and consent obtained. The patient was placed supine on the CT scanner and preliminary images through the liver obtained. Conscious sedation and monitoring were provided throughout the procedure by a nurse. The right lobe anteriorly was selected for biopsy.. A right anterior oblique approach was selected and the area prepped and draped in the usual sterile fashion. 1% Xylocaine was used to anesthetize the skin and soft tissues. A 17-gauge guiding needle was advanced into the anterior segment right lobe of the liver. Its position was confirmed with CT. Using coaxial technique, multiple core biopsies were obtained. The postprocedure images show no evidence of significant hemorrhage. IMPRESSION: 1. CT-guided liver biopsy as described above.
[2018-11-02 07:11] LABS: HEMOGLOBIN 11.6 g/dL (12.0-16.0); MEAN CELL VOLUME 86.8 fl (80.0-105.0); MEAN CORPUSCULAR HEMOGLOBIN 26.8 pg (25.0-35.0); MEAN CORPUSCULAR HGB CONC 30.9 g/dl (31.0-37.0); MEAN PLATELET VOLUME 11.9 fl (7.0-11.0); RBC 4.33 10^6/uL (3.5-6.1); RED CELL DISTRIBUTION WIDTH 23.1 % (11.5-14.5); WHITE BLOOD COUNT 3.9 10^3/uL (4.5-11.0)
[2018-11-02 07:34] LABS: ALB/GLOB RATIO 1.3 (1.1-1.8); ALBUMIN 3.7 g/dL (3.0-4.8); ALT/SGPT 810 U/L (7-56); AST/SGOT 507 U/L (14-36); BLOOD UREA NITROGEN 19 mg/dL (7-21); GFR NON-AFRICAN AMERICAN > 60
--- NOTE | 2018-11-02 09:07 | CP.PCM.PN ---
<Devon Maher - Last Filed: 11/02/18 13:48> Subjective - Date & Time of Evaluation Date of Evaluation: 11/02/18 Time of Evaluation: 09:04 - Subjective Subjective: She is complaining of RUQ pain after liver biopsy. She is requesting pain meds. Objective - Vital Signs/Intake and Output Vital Signs (last 24 hours): Temp Pulse Resp BP Pulse Ox 97.8 F 77 18 98/63 L 98 11/02/18 06:00 11/02/18 06:00 11/02/18 06:00 11/02/18 06:00 11/02/18 06:00 Intake and Output: 11/02/18 11/02/18 06:59 18:59 Intake Total 480 Output Total 403 Balance 77 - Medications Medications: Current Medications Aspirin (Ecotrin) 81 mg PO DAILY [facility] Last Admin: 11/01/18 11:16 Dose: Not Given Duloxetine HCl (Cymbalta) 60 mg PO DAILY [facility] Last Admin: 10/28/18 09:37 Dose: 60 mg Emollient Ointment (Vaseline Oint) 0 gm TOP BID PRN PRN Reason: Dry skin Enoxaparin Sodium (Lovenox) 40 mg SC DAILY [facility]; Protocol Last Admin: 10/31/18 09:21 Dose: 40 mg Famotidine (Pepcid) 20 mg PO DAILY [facility] Last Admin: 11/01/18 10:13 Dose: Not Given Gabapentin (Neurontin) 1,200 mg PO TID [facility]; Protocol Last Admin: 11/01/18 18:06 Dose: 1,200 mg Hydrocortisone (Anusol-Hc) 0 gm KS BID [facility] Last Admin: 11/01/18 18:24 Dose: Not Given Levalbuterol HCl (Xopenex) 0.63 mg IH [id number] PRN PRN Reason: Shortness of Breath Last Admin: 10/22/18 10:12 Dose: 0.63 mg Lidocaine (Lidoderm) 1 ea TD DAILY [facility] Last Admin: 11/01/18 11:00 Dose: Not Given Lidocaine (Lidoderm) 1 ea TD ONCE ONE Stop: 11/02/18 22:46 Last Admin: 11/01/18 22:54 Dose: 1 ea Lorazepam (Ativan) 2 mg IVP Q4H PRN; Protocol PRN Reason: Anxiety Last Admin: 11/01/18 23:28 Dose: 2 mg Montelukast Sodium (Singulair) 10 mg PO HS [facility] Last Admin: 10/27/18 21:16 Dose: 10 mg Multi-Ingredient Ointment (Prep-Hem) 0 ea TOP DAILY [facility] Last Admin: 11/01/18 10:14 Dose: 1 applic Ondansetron HCl (Zofran Inj) 4 mg IVP Q6H PRN PRN Reason: Nausea/Vomiting Last Admin: 10/27/18 15:28 Dose: 4 mg Pantoprazole Sodium (Protonix Ec Tab) 40 mg PO 0600 [facility] Last Admin: 10/28/18 05:16 Dose: 40 mg Polyethylene Glycol (Miralax) 17 gm PO BID [facility] Last Admin: 11/01/18 18:24 Dose: 17 gm Sennosides (Senokot Tab) 8.6 mg PO DAILY [facility] Last Admin: 11/01/18 10:13 Dose: Not Given Topiramate (Topamax) 150 mg PO DAILY [facility]; Protocol Last Admin: 10/26/18 10:17 Dose: 150 mg - Labs Labs: 11/02/18 06:45 11/02/18 06:45 PT 12.5 SECONDS (9.4-12.5) 10/29/18 10:35 INR 1.11 10/29/18 10:35 APTT 36.9 Seconds (26.9-38.3) 10/29/18 10:35 - Constitutional Appears: Non-toxic, No Acute Distress - Head Exam Head Exam: ATRAUMATIC, NORMAL INSPECTION - Eye Exam Eye Exam: EOMI, Normal appearance - ENT Exam ENT Exam: Mucous Membranes Moist, Normal Exam - Respiratory Exam Respiratory Exam: Clear to Ausculation Bilateral, NORMAL BREATHING PATTERN - Cardiovascular Exam Cardiovascular Exam: REGULAR RHYTHM, +S1, +S2 - Neurological Exam Neurological Exam: Alert, Awake, Oriented x3 - Psychiatric Exam Psychiatric exam: Depressed, Normal Affect - Skin Skin Exam: Normal Color, Warm Assessment and Plan - Assessment and Plan (Free Text) Assessment: #elevated liver tests #NAFLD #Seizure disorder #Gastric sleeve 2009 #Hiatal hernia repair Plan: the elevated liver enzymes are a hepatocellular pattern and may be reactive to seizures/antiepileptic medications in setting of NAFLD, ?KELLOGG. -Liver biospy 11/01/18 - PENDING results -Hold potentially hepatotoxic meds: Tylenol, NSAIDs, Cymbalta, topamax. No signs or symptoms of acute liver failure. ultrasound reviewedfatty liver, CBD 8.3, good hepatopedal blood flow -U/S duplex negative for liver vascular disease Workup for other sources of liver disease with significant family history pending. -Viral Hep panel, EBV, HSV, Autoimmune, iron, wilsons, RPR w/u negative -OK to d/c from GI perspective, must follow up biopsy results. OK to follow up liver tests every 3-7 days in TCU as long as clinically the same. Discussed with Dr. Burns, see attestation. <Tonny Martinez - Last Filed: 11/02/18 16:33> Objective - Vital Signs/Intake and Output Vital Signs (last 24 hours): Temp Pulse Resp BP Pulse Ox 98.2 F 93 H 12 120/87 96 11/02/18 14:00 11/02/18 14:00 11/02/18 14:00 11/02/18 14:00 11/02/18 14:00 Intake and Output: 11/02/18 11/02/18 06:59 18:59 Intake Total 480 Output Total 403 Balance 77 - Medications Medications: Current Medications Aspirin (Ecotrin) 81 mg PO DAILY [facility] Last Admin: 11/02/18 11:06 Dose: 81 mg Duloxetine HCl (Cymbalta) 60 mg PO DAILY [facility] Last Admin: 10/28/18 09:37 Dose: 60 mg Emollient Ointment (Vaseline Oint) 0 gm TOP BID PRN PRN Reason: Dry skin Enoxaparin Sodium (Lovenox) 40 mg SC DAILY [facility]; Protocol Last Admin: 10/31/18 09:21 Dose: 40 mg Famotidine (Pepcid) 20 mg PO DAILY [facility] Last Admin: 11/02/18 11:07 Dose: 20 mg Gabapentin (Neurontin) 1,200 mg PO TID [facility]; Protocol Last Admin: 11/02/18 15:41 Dose: 1,200 mg Hydrocortisone (Anusol-Hc) 0 gm KS BID [facility] Last Admin: 11/02/18 11:11 Dose: 1 applic Levalbuterol HCl (Xopenex) 0.63 mg IH [id number] PRN PRN Reason: Shortness of Breath Last Admin: 10/22/18 10:12 Dose: 0.63 mg Lidocaine (Lidoderm) 1 ea TD DAILY [facility] Last Admin: 11/01/18 11:00 Dose: Not Given Lidocaine (Lidoderm) 1 ea TD ONCE ONE Stop: 11/02/18 22:46 Last Admin: 11/01/18 22:54 Dose: 1 ea Lorazepam (Ativan) 2 mg IVP Q4H PRN; Protocol PRN Reason: Anxiety Last Admin: 11/01/18 23:28 Dose: 2 mg Montelukast Sodium (Singulair) 10 mg PO HS [facility] Last Admin: 10/27/18 21:16 Dose: 10 mg Multi-Ingredient Ointment (Prep-Hem) 0 ea TOP DAILY [facility] Last Admin: 11/02/18 11:12 Dose: 1 applic Ondansetron HCl (Zofran Inj) 4 mg IVP Q6H PRN PRN Reason: Nausea/Vomiting Last Admin: 10/27/18 15:28 Dose: 4 mg Oxycodone HCl (Oxycodone Immediate Release Tab) 2.5 mg PO DAILY PRN PRN Reason: Pain, moderate (4-7) Last Admin: 11/02/18 15:43 Dose: 2.5 mg Pantoprazole Sodium (Protonix Ec Tab) 40 mg PO 0600 [facility] Last Admin: 10/28/18 05:16 Dose: 40 mg Polyethylene Glycol (Miralax) 17 gm PO BID [facility] Last Admin: 11/02/18 11:11 Dose: 17 gm Sennosides (Senokot Tab) 8.6 mg PO DAILY [facility] Last Admin: 11/01/18 10:13 Dose: Not Given Topiramate (Topamax) 150 mg PO DAILY [facility]; Protocol Last Admin: 10/26/18 10:17 Dose: 150 mg - Labs Labs: 11/02/18 06:45 11/02/18 06:45 PT 12.5 SECONDS (9.4-12.5) 10/29/18 10:35 INR 1.11 10/29/18 10:35 APTT 36.9 Seconds (26.9-38.3) 10/29/18 10:35 Attending/Attestation - Attestation I have fully participated in the care of the patient.: Yes I have reviewed all pertinent clinical information, including history, physical exam and plan: Yes Notes (Text): 11/02/18 16:31 Seizure disorder Transaminitis of unclear etiology, s/p liver biopsy - Diet as tolerated - LFTs stable without clinical features of hepatic failure, continue to monitor and avoid hepatotoxic therapies - Follow up liver biopsy results - Patient would benefit from continued monitoring of LFTs and additional outpatient follow up. No further planned GI intervention at this time, will sign off case. Please reconsult as necessary, thank you.
--- NOTE | 2018-11-02 09:46 | CP.PCM.PCO ---
Physician Communication Note - Physician Communication Note Physician Communication Note: spoke with GI patient ok for TCU f/u in 2-3 days pathology liver biopsy
[2018-11-02] MEDS: POLYETHYLENE GLYCOL 3350 17 GM/Dose PACKET PO SCH (11:11)
[2018-11-02] MEDS: Hydrocortisone 2.5% Rectal Cream(30 gm) PR SCH (11:11)
[2018-11-02] MEDS: Hemorrohoidal Ointment (2 oz) TOP SCH (11:12)
[2018-11-02] MEDS ORDERED: oxyCODONE 5 mg Immediate Release Tab PO SCH (11:15)
--- NOTE | 2018-11-02 13:08 | CP.PCM.PN ---
<ChristophertirsoMerah - Last Filed: 11/02/18 13:00> Subjective - Date & Time of Evaluation Date of Evaluation: 11/02/18 Time of Evaluation: 13:00 - Subjective Subjective: Medicine Progress Note for Dr. Chanel 48F seen and evaluated at bedside this morning. No acute events overnight. Patient states she was able to sleep last night however complaining of RUQ abdominal pain that has worsened since her biopsy. Denies f/c, n/v/d, SOB, CP, or urinary symptoms. Objective - Vital Signs/Intake and Output Vital Signs (last 24 hours): Temp Pulse Resp BP Pulse Ox 97.8 F 77 18 98/63 L 98 11/02/18 06:00 11/02/18 06:00 11/02/18 06:00 11/02/18 06:00 11/02/18 06:00 Intake and Output: 11/02/18 11/02/18 06:59 18:59 Intake Total 480 Output Total 403 Balance 77 - Medications Medications: Current Medications Aspirin (Ecotrin) 81 mg PO DAILY [facility] Last Admin: 11/02/18 11:06 Dose: 81 mg Duloxetine HCl (Cymbalta) 60 mg PO DAILY [facility] Last Admin: 10/28/18 09:37 Dose: 60 mg Emollient Ointment (Vaseline Oint) 0 gm TOP BID PRN PRN Reason: Dry skin Enoxaparin Sodium (Lovenox) 40 mg SC DAILY [facility]; Protocol Last Admin: 10/31/18 09:21 Dose: 40 mg Famotidine (Pepcid) 20 mg PO DAILY [facility] Last Admin: 11/02/18 11:07 Dose: 20 mg Gabapentin (Neurontin) 1,200 mg PO TID [facility]; Protocol Last Admin: 11/02/18 11:05 Dose: 1,200 mg Hydrocortisone (Anusol-Hc) 0 gm IN BID [facility] Last Admin: 11/02/18 11:11 Dose: 1 applic Levalbuterol HCl (Xopenex) 0.63 mg IH [id number] PRN PRN Reason: Shortness of Breath Last Admin: 10/22/18 10:12 Dose: 0.63 mg Lidocaine (Lidoderm) 1 ea TD DAILY [facility] Last Admin: 11/01/18 11:00 Dose: Not Given Lidocaine (Lidoderm) 1 ea TD ONCE ONE Stop: 11/02/18 22:46 Last Admin: 11/01/18 22:54 Dose: 1 ea Lorazepam (Ativan) 2 mg IVP Q4H PRN; Protocol PRN Reason: Anxiety Last Admin: 11/01/18 23:28 Dose: 2 mg Montelukast Sodium (Singulair) 10 mg PO HS [facility] Last Admin: 10/27/18 21:16 Dose: 10 mg Multi-Ingredient Ointment (Prep-Hem) 0 ea TOP DAILY [facility] Last Admin: 11/02/18 11:12 Dose: 1 applic Ondansetron HCl (Zofran Inj) 4 mg IVP Q6H PRN PRN Reason: Nausea/Vomiting Last Admin: 10/27/18 15:28 Dose: 4 mg Oxycodone HCl (Oxycodone Immediate Release Tab) 2.5 mg PO DAILY [facility] Pantoprazole Sodium (Protonix Ec Tab) 40 mg PO 0600 [facility] Last Admin: 10/28/18 05:16 Dose: 40 mg Polyethylene Glycol (Miralax) 17 gm PO BID [facility] Last Admin: 11/02/18 11:11 Dose: 17 gm Sennosides (Senokot Tab) 8.6 mg PO DAILY [facility] Last Admin: 11/01/18 10:13 Dose: Not Given Topiramate (Topamax) 150 mg PO DAILY [facility]; Protocol Last Admin: 10/26/18 10:17 Dose: 150 mg - Labs Labs: 11/02/18 06:45 11/02/18 06:45 PT 12.5 SECONDS (9.4-12.5) 10/29/18 10:35 INR 1.11 10/29/18 10:35 APTT 36.9 Seconds (26.9-38.3) 10/29/18 10:35 - Constitutional Appears: Well, Non-toxic, No Acute Distress - Head Exam Head Exam: ATRAUMATIC, NORMAL INSPECTION, NORMOCEPHALIC - Eye Exam Eye Exam: EOMI - ENT Exam ENT Exam: Mucous Membranes Moist - Respiratory Exam Respiratory Exam: Clear to Ausculation Bilateral, NORMAL BREATHING PATTERN. absent: Rales, Rhonchi, Wheezes, Respiratory Distress - Cardiovascular Exam Cardiovascular Exam: REGULAR RHYTHM, +S1, +S2. absent: Murmur - GI/Abdominal Exam GI & Abdominal Exam: Soft, Tenderness, Normal Bowel Sounds. absent: Distended, Guarding, Rigid, Mass (RUQ tenderness to palpation), Rebound Additional comments: dressing c/d/i - Extremities Exam Extremities Exam: Normal Inspection. absent: Calf Tenderness, Pedal Edema - Neurological Exam Neurological Exam: Alert, Awake, Oriented x3 - Psychiatric Exam Psychiatric exam: Anxious, Normal Affect, Normal Mood - Skin Skin Exam: Dry, Intact, Normal Color, Warm Assessment and Plan - Assessment and Plan (Free Text) Assessment: 48 year old female with past medical history of CVA with residual left sided weakness, epilepsy, and fibromyalgia, presenting s/p seizure episode. Hospital stay complicated by worsening transaminitis. Plan: Transaminitis, resolving - Decrease in LFTs today - Possibly 2/2 hepatotoxic medications which are on hold - Topimax, protonix, duloxetine and singular on hold, as these medications thought to be leading to transaminitis - Abd US showed hepatic steatosis without focal liver abnormality - Will continue to monitor and avoid hepatotoxic medications - GI consulted, Dr. Martinez/Katy pending work-up; Hep panel, EBV, HSV, au toimmune, iron, wilsons, RPR w/u negative - s/p liver biopsy with IR POD#1; patient complaining of RUQ pain - 2.5mg oxycodone PO daily prior to PT sessions - Lidoderm patch in RUQ - Continue physical therapy sessions Seizure - CT head 10/21: possible tiny punctate petechial hemorrhage in left basal ganglia vs. artifact - Repeat CT head 10/23: no interval change from previous study - MRI Brain 10/26: no acute abnormalities - Ativan PRN - EEG - awaiting report - Seizure/aspiration precautions - Holding home topamax 2/2 elevated LFTs - Gabapentin 1200 TID per neuro - Neurology following Atypical chest pain, resolved - Troponin negx3 - ECHO from 09/2018 shows EF 60-65% - EKG: NSR HR 67 - TSH: 3.09 - ASA 81 mg PO daily - Oxygen NC - Cardiology: recommended outpt follow up for cath Constipation, resolved - Continue miralax/senna External Hemorrhoid - Will continue hemorrhoid ointment as needed Elevated d-dimer - V/Q scan (-) for PE - Lovenox for DVT PPX PPX GI: Pepcid DVT: Lovenox Dispo: Patient cleared for TCU, but need adequate pain control prior Patient plan reviewed and discussed with Dr. Yanique Savage PGY1 <Tia Chanel - Last Filed: 11/02/18 15:57> Objective - Vital Signs/Intake and Output Vital Signs (last 24 hours): Temp Pulse Resp BP Pulse Ox 98.2 F 93 H 12 120/87 96 11/02/18 14:00 11/02/18 14:00 11/02/18 14:00 11/02/18 14:00 11/02/18 14:00 Intake and Output: 11/02/18 11/02/18 06:59 18:59 Intake Total 480 Output Total 403 Balance 77 - Medications Medications: Current Medications Aspirin (Ecotrin) 81 mg PO DAILY [facility] Last Admin: 11/02/18 11:06 Dose: 81 mg Duloxetine HCl (Cymbalta) 60 mg PO DAILY [facility] Last Admin: 10/28/18 09:37 Dose: 60 mg Emollient Ointment (Vaseline Oint) 0 gm TOP BID PRN PRN Reason: Dry skin Enoxaparin Sodium (Lovenox) 40 mg SC DAILY [facility]; Protocol Last Admin: 10/31/18 09:21 Dose: 40 mg Famotidine (Pepcid) 20 mg PO DAILY [facility] Last Admin: 11/02/18 11:07 Dose: 20 mg Gabapentin (Neurontin) 1,200 mg PO TID [facility]; Protocol Last Admin: 11/02/18 15:41 Dose: 1,200 mg Hydrocortisone (Anusol-Hc) 0 gm IN BID [facility] Last Admin: 11/02/18 11:11 Dose: 1 applic Levalbuterol HCl (Xopenex) 0.63 mg IH [id number] PRN PRN Reason: Shortness of Breath Last Admin: 10/22/18 10:12 Dose: 0.63 mg Lidocaine (Lidoderm) 1 ea TD DAILY [facility] Last Admin: 11/01/18 11:00 Dose: Not Given Lidocaine (Lidoderm) 1 ea TD ONCE ONE Stop: 11/02/18 22:46 Last Admin: 11/01/18 22:54 Dose: 1 ea Lorazepam (Ativan) 2 mg IVP Q4H PRN; Protocol PRN Reason: Anxiety Last Admin: 11/01/18 23:28 Dose: 2 mg Montelukast Sodium (Singulair) 10 mg PO HS [facility] Last Admin: 10/27/18 21:16 Dose: 10 mg Multi-Ingredient Ointment (Prep-Hem) 0 ea TOP DAILY [facility] Last Admin: 11/02/18 11:12 Dose: 1 applic Ondansetron HCl (Zofran Inj) 4 mg IVP Q6H PRN PRN Reason: Nausea/Vomiting Last Admin: 10/27/18 15:28 Dose: 4 mg Oxycodone HCl (Oxycodone Immediate Release Tab) 2.5 mg PO DAILY PRN PRN Reason: Pain, moderate (4-7) Last Admin: 11/02/18 15:43 Dose: 2.5 mg Pantoprazole Sodium (Protonix Ec Tab) 40 mg PO 0600 [facility] Last Admin: 10/28/18 05:16 Dose: 40 mg Polyethylene Glycol (Miralax) 17 gm PO BID [facility] Last Admin: 11/02/18 11:11 Dose: 17 gm Sennosides (Senokot Tab) 8.6 mg PO DAILY [facility] Last Admin: 11/01/18 10:13 Dose: Not Given Topiramate (Topamax) 150 mg PO DAILY [facility]; Protocol Last Admin: 10/26/18 10:17 Dose: 150 mg - Labs Labs: 11/02/18 06:45 11/02/18 06:45 PT 12.5 SECONDS (9.4-12.5) 10/29/18 10:35 INR 1.11 10/29/18 10:35 APTT 36.9 Seconds (26.9-38.3) 10/29/18 10:35 Attending/Attestation - Attestation I have personally seen and examined this patient.: Yes I have fully participated in the care of the patient.: Yes I have reviewed all pertinent clinical information, including history, physical exam and plan: Yes Notes (Text): 11/02/18 15:55 48 year old female with past medical history of CVA with residual left sided weakness, epilepsy, and fibromyalgia who presented after seizure episode. CT head and MRI brain reviewed as above. Neurology has been following and patient is on gabapentin. She was also on topamax which is on hold due to elevated LFTs. GI is also following for transaminitis. Abdominal ultrasound showed hepatic steatosis. Hepatitis panel was negative. LFTs slightly improved today. She is s/p liver biopsy yesterday. Complains of post procedure pain; can try low dose oxycodone. She also initially complained of chest pain. Serial cardiac enzymes have been negative. Cardiology has recommended outpatient cardiac cath. PT is following and recommended TCU. Plan to discharge to TCU today. Tia Chanel MD Hospitalist.
[2018-11-02] MEDS ORDERED: oxyCODONE 5 mg Immediate Release Tab PO PRN (13:45)
[2018-11-02 15:02] VITALS: BP 120/87; PULSE 93; RESP 12; TEMP 98.2; O2SAT 96
[2018-11-02] MEDS ORDERED: Influenza Vaccine 60 mcg/0.5 mL SYR (4YR UP) IM ONE (15:10)
[2018-11-02] MEDS ORDERED: Pneumococcal 23-Valent Vaccine IM ONE (15:10)
--- NOTE | 2018-11-02 15:20 | CP.PCM.DIS ---
<Nestor Savage - Last Filed: 11/02/18 15:06> Provider - Provider Date of Admission: 10/23/18 13:59 Attending physician: Tia Chanel MD Primary care physician: Saskia Hearn MD Consults: 10/22/18 02:20 Cardiology Consult Routine Comment: Consulting Provider: Lee Cuellar Consulting Physician: Lee Cuellar Reason for Consult: chest pain Neurology Consult Routine Comment: Consulting Provider: Diego Ferris Consulting Physician: Diego Ferris Reason for Consult: seizures 10/23/18 14:02 TCU [Evaluation for TRCU] Routine Comment: Physician Instructions: Reason For Exam: deconditioning, requiring more rehab 10/24/18 09:03 Psychiatry Consult Routine Comment: Consulting Provider: Ada Eddy Consulting Physician: Ada Eddy Reason for Consult: Psychiatric Evaluation 10/25/18 16:58 TCU [Evaluation for TRCU] Routine Comment: Physician Instructions: Reason For Exam: eval 10/26/18 10:33 Neurology Consult Routine Comment: Consulting Provider: Diego Ferris Consulting Physician: Diego Ferris Reason for Consult: seizures 10/26/18 10:34 Gastroenterology Consult Routine Comment: Consulting Provider: Tonny Martinez Consulting Physician: Tonny Martinez Reason for Consult: transaminitis 10/29/18 09:06 Radiology Consult Routine Comment: Consulting Provider: Mina David Consulting Physician: Mina David Reason for Consult: liver biopsy 11/02/18 09:53 TCU [Evaluation for TRCU] Routine Comment: Physician Instructions: Reason For Exam: PT Time Spent in preparation of Discharge (in minutes): 60 Hospital Course - Lab Results Lab Results: Most Recent Lab Values WBC 3.9 10^3/uL (4.5-11.0) L 11/02/18 06:45 RBC 4.33 10^6/uL (3.5-6.1) 11/02/18 06:45 Hgb 11.6 g/dL (12.0-16.0) L 11/02/18 06:45 Hct 37.6 % (36.0-48.0) 11/02/18 06:45 MCV 86.8 fl (80.0-105.0) 11/02/18 06:45 MCH 26.8 pg (25.0-35.0) 11/02/18 06:45 MCHC 30.9 g/dl (31.0-37.0) L 11/02/18 06:45 RDW 23.1 % (11.5-14.5) H 11/02/18 06:45 Plt Count 248 10^3/uL (120.0-450.0) 11/02/18 06:45 MPV 11.9 fl (7.0-11.0) H 11/02/18 06:45 Neut % (Auto) 42.9 % (50.0-68.0) L 11/01/18 07:45 Lymph % (Auto) 44.4 % (22.0-35.0) H 11/01/18 07:45 [place] % (Auto) 6.7 % (1.0-6.0) H 11/01/18 07:45 Eos % (Auto) 5.5 % (1.5-5.0) H 11/01/18 07:45 Baso % (Auto) 0.5 % (0.0-3.0) 11/01/18 07:45 Lymph # (Auto) 1.9 (1.2-3.4) 11/01/18 07:45 [place] # (Auto) 0.3 (0.1-0.6) 11/01/18 07:45 Eos # (Auto) 0.2 (0.0-0.7) 11/01/18 07:45 Baso # (Auto) 0.02 K/mm3 (0.0-2.0) 11/01/18 07:45 Absolute Neuts (auto) 1.87 (1.4-6.5) 11/01/18 07:45 PT 12.5 SECONDS (9.4-12.5) 10/29/18 10:35 INR 1.11 10/29/18 10:35 APTT 36.9 Seconds (26.9-38.3) 10/29/18 10:35 D-Dimer, Quantitative 678 ng/mlDDU (0-243) H 10/21/18 23:00 Sodium 142 mmol/L (132-148) 11/02/18 06:45 Potassium 4.3 mmol/L (3.6-5.0) 11/02/18 06:45 Chloride 108 mmol/L (98-107) H 11/02/18 06:45 Carbon Dioxide 28 mmol/L (21-33) 11/02/18 06:45 Anion Gap 11 (10-20) 11/02/18 06:45 BUN 19 mg/dL (7-21) 11/02/18 06:45 Creatinine 0.6 mg/dl (0.7-1.2) L 11/02/18 06:45 Est GFR ( Amer) > 60 11/02/18 06:45 Est GFR (Non-Af Amer) > 60 11/02/18 06:45 POC Glucose (mg/dL) 111 mg/dL (65-110) H 10/23/18 14:12 Random Glucose 89 mg/dL (70-110) 11/02/18 06:45 Hemoglobin A1c 5.1 % (4.2-6.5) 10/22/18 06:00 Calcium 9.0 mg/dL (8.4-10.5) 11/02/18 06:45 Phosphorus 5.9 mg/dL (2.5-4.5) H 10/26/18 06:00 Magnesium 2.4 mg/dL (1.7-2.2) H 10/26/18 06:00 Iron 87 ug/dL (45-180) 10/26/18 11:00 TIBC 367 ug/dL (265-497) 10/26/18 11:00 % Saturation 24 % (20-55) 10/26/18 11:00 Ferritin 68.4 ng/mL 10/26/18 11:00 Total Bilirubin 0.2 mg/dL (0.2-1.3) 11/02/18 06:45 AST 507 U/L (14-36) H D 11/02/18 06:45 ALT 810 U/L (7-56) H 11/02/18 06:45 Alkaline Phosphatase 134 U/L (38-126) H 11/02/18 06:45 Lactate Dehydrogenase 478 U/L (333-699) 10/22/18 12:15 Total Creatine Kinase 122 U/L (35-230) 10/27/18 10:40 Troponin I < 0.01 ng/mL 10/24/18 07:00 Total Protein 6.7 g/dL (5.8-8.3) 11/02/18 06:45 Albumin 3.7 g/dL (3.0-4.8) 11/02/18 06:45 Globulin 3.0 gm/dL 11/02/18 06:45 Albumin/Globulin Ratio 1.3 (1.1-1.8) 11/02/18 06:45 A1AT Clinical Indicatr Not given 10/28/18 07:00 A1AT Referred By Not given 10/28/18 07:00 Rbgym-5-Bprgylbudsv 177 mg/dL (83-199) 10/28/18 07:00 Ceruloplasmin 32 mg/dL (18-53) 10/27/18 11:30 Triglycerides 61 mg/dL (35-160) 10/22/18 06:00 Cholesterol 142 mg/dL (130-200) 10/22/18 06:00 LDL Cholesterol Direct 71 mg/dL (0-129) 10/22/18 06:00 HDL Cholesterol 50 mg/dL (29-60) 10/22/18 06:00 Vitamin B12 743 pg/mL (239-931) 10/27/18 11:30 Folate 5.4 ng/mL 10/27/18 11:30 TSH 3rd Generation 3.51 mIU/mL (0.46-4.68) 10/26/18 11:00 Urine Color Yellow (YELLOW) 10/22/18 14:30 Urine Appearance Clear (CLEAR) 10/22/18 14:30 Urine pH 7.0 (4.7-8.0) 10/22/18 14:30 Ur Specific Harvey 1.015 (1.005-1.035) 10/22/18 14:30 Urine Protein Negative mg/dL (<30 mg/dL) 10/22/18 14:30 Urine Glucose (UA) Negative mg/dL (NEGATIVE) 10/22/18 14:30 Urine Ketones Negative mg/dL (NEGATIVE) 10/22/18 14:30 Urine Blood Negative (NEGATIVE) 10/22/18 14:30 Urine Nitrate Negative (NEGATIVE) 10/22/18 14:30 Urine Bilirubin Negative (NEGATIVE) 10/22/18 14:30 Urine Urobilinogen 0.2 E.U./dL (<1 E.U./dL) 10/22/18 14:30 Ur Leukocyte Esterase Small Deepak/uL (NEGATIVE) H 10/22/18 14:30 Urine RBC 0 - 2 /hpf (0-2) 10/22/18 14:30 Urine WBC 5 - 10 /hpf (0-6) H 10/22/18 14:30 Ur Epithelial Cells 3 - 4 /hpf (0-5) 10/22/18 14:30 Urine Bacteria Many /hpf (NONE) 10/22/18 14:30 IgG 806.7 mg/dL (700.0-1600.0) 10/27/18 11:30 PAPITO Screen Negative (Negative) 10/26/18 13:45 Anti-Mitochondrial Ab Negative (Negative) 10/26/18 13:45 Anti-Smooth Muscle Ab Negative (Negative) 10/26/18 13:45 RPR Nonreactive (NONREACTIVE) 10/28/18 07:00 EBV Capsid Ag IgG Ab 52.00 U/mL H 10/28/18 07:00 EBV Capsid Ag IgM Ab <36.00 U/mL 10/28/18 07:00 EBV EA IgG Ab Interp <9.00 U/mL (<9.00) 10/28/18 07:00 EBV Nuclear Antigen Ab 105.00 U/mL H 10/28/18 07:00 EBV Interpretation See note 10/28/18 07:00 Hepatitis A IgM Ab Negative (NEGATIVE) 10/26/18 11:00 Hep Bs Antigen Negative (NEGATIVE) 10/26/18 11:00 Hep B Core IgM Ab Negative (NEGATIVE) 10/26/18 11:00 Hepatitis C Antibody Negative (NEGATIVE) 10/26/18 11:00 HSV I IgG Ab 4.72 index H 10/28/18 07:00 HSV II IgG 16.70 index H 10/28/18 07:00 HIV 1&2 Ag/Ab, 4th Gen Nonreactive (Nonreactive) 10/29/18 09:00 - Hospital Course Hospital Course: Patient is a 48 year old female with past medical history of CVA with residual left sided weakness, epilepsy, obesity, anemia, fibromyalgia, neuropathy, seasonal disorder presented to our emergency department s/p seizure episode witnessed by family on 10/22/18. Patient's last seizure was several years ago. Patient had concomitant constant chest discomfort localized to mid anterior chest wall, not associated with exertion, dyspnea or diaphoresis. Neurology was consulted and CT head was done showing tiny punctate petechial hemorrhage in left basal ganglia vs. artifact. Repeat CT of head showed no interval change and MRI was recommended. MRI did not show any acute abnormalities. Ativan as needed. EEG final report pending. Cardiology was consulted secondary to chest pain. Troponins were negative x3. Echo from 09/2018 showed normal EF. EKG was NSR HR 67. Recommended patient have outpatient follow up with cardiac cath. Patients admission complicated by transaminitis. GI consulted and full work-up was done, currently pending completion. Hepatitis panel was negative. Patient's pain was controlled. Hepatoxic medications were held. Abdominal US showed hepatic steatosis. Patient had a liver biopsy done by interventional radiology with results pending. Continued physical therapy and pain management. Above is a brief summary, below is the most recent progress note that documents all work-up done for patient. Transaminitis, resolving - Decrease in LFTs today - Possibly 2/2 hepatotoxic medications which are on hold - Topimax, protonix, duloxetine and singular on hold, as these medications thought to be leading to transaminitis - Abd US showed hepatic steatosis without focal liver abnormality - Will continue to monitor and avoid hepatotoxic medications - GI consulted, Dr. Martinez/Katy pending work-up; Hep panel, EBV, HSV, autoimmune, iron, wilsons, RPR w/u negative - s/p liver biopsy with IR POD#1; patient complaining of RUQ pain - 2.5mg oxycodone PO daily prior to PT sessions - Lidoderm patch in RUQ - Continue physical therapy sessions Seizure - CT head 10/21: possible tiny punctate petechial hemorrhage in left basal ganglia vs. artifact - Repeat CT head 10/23: no interval change from previous study - MRI Brain 10/26: no acute abnormalities - Ativan PRN - EEG - awaiting report - Seizure/aspiration precautions - Holding home topamax 2/2 elevated LFTs - Gabapentin 1200 TID per neuro - Neurology following Atypical chest pain, resolved - Troponin negx3 - ECHO from 09/2018 shows EF 60-65% - EKG: NSR HR 67 - TSH: 3.09 - ASA 81 mg PO daily - Oxygen NC - Cardiology: recommended outpt follow up for cath Constipation, resolved - Continue miralax/senna External Hemorrhoid - Will continue hemorrhoid ointment as needed Elevated d-dimer - V/Q scan (-) for PE - Lovenox for DVT PPX PPX GI: Pepcid DVT: Lovenox - Date & Time of H&P Date of H&P: 10/22/18 Time of H&P: 01:15 Discharge Exam - Head Exam Head Exam: ATRAUMATIC, NORMAL INSPECTION - Eye Exam Eye Exam: EOMI - ENT Exam ENT Exam: Mucous Membranes Moist - Respiratory Exam Respiratory Exam: NORMAL BREATHING PATTERN, UNREMARKABLE. absent: Wheezes, Respiratory Distress - Cardiovascular Exam Cardiovascular Exam: REGULAR RHYTHM. absent: Tachycardia - GI/Abdominal Exam GI & Abdominal Exam: Normal Bowel Sounds, Soft, Tenderness - Neurological Exam Neurological exam: Alert, Oriented x3 - Psychiatric Exam Psychiatric exam: Normal Affect, Normal Mood - Skin Skin Exam: Dry, Intact, Normal Color, Warm Discharge Plan - Follow Up Plan Condition: GUARDED Disposition: HOME/ ROUTINE Instructions: Heart Healthy Diet, Chest Pain, Influenza Virus Vaccine (Inactivated), Pneumococcal Polysaccharide Vaccine (23-Valent) Additional Instructions: You will be discharged to TCU - all active medications to be continued. After discharge from TCU please follow-up with your PMD, Dr Hearn, within 7 days. Please follow-up with your irrigation installation specialist, Dr Smyth. Please follow-up with a neurologist as they will perform a video EEG outpatient. Please follow-up with a psychiatrist - you were given information about outpatient psychiatrists. We have held the following home medications due to your elevated liver enzymes, we will continue to hold these for the time bein. Duloxetine 60mg po qd 2. Montelukast 10mg po hs 3. Pantoprazole 40mg po qd 4. Topiramate 150mg po qd If symptoms return promptly go to your nearest emergency department. Referrals: Jean Carlos Smyth MD [Staff Provider] - Tonny Martinez MD [Staff Provider] - Ssakia Hearn MD [Primary Care Provider] - Ada Eddy MD [Staff Provider] - Brady Lo MD [Staff Provider] - <Tia Chanel - Last Filed: 11/02/18 15:59> Provider - Provider Date of Admission: 10/23/18 13:59 Attending physician: Tia Chanel MD Primary care physician: Saskia Hearn MD Consults: 10/22/18 02:20 Cardiology Consult Routine Comment: Consulting Provider: Lee Cuellar Consulting Physician: Lee Cuellar Reason for Consult: chest pain Neurology Consult Routine Comment: Consulting Provider: Diego Ferris Consulting Physician: Diego Ferris Reason for Consult: seizures 10/23/18 14:02 TCU [Evaluation for TRCU] Routine Comment: Physician Instructions: Reason For Exam: deconditioning, requiring more rehab 10/24/18 09:03 Psychiatry Consult Routine Comment: Consulting Provider: Ada Eddy Consulting Physician: Ada Eddy Reason for Consult: Psychiatric Evaluation 10/25/18 16:58 TCU [Evaluation for TRCU] Routine Comment: Physician Instructions: Reason For Exam: eval 10/26/18 10:33 Neurology Consult Routine Comment: Consulting Provider: Diego Ferris Consulting Physician: Diego Ferris Reason for Consult: seizures 10/26/18 10:34 Gastroenterology Consult Routine Comment: Consulting Provider: Tonny Martinez Consulting Physician: Tonny Martinez Reason for Consult: transaminitis 10/29/18 09:06 Radiology Consult Routine Comment: Consulting Provider: Mina David Consulting Physician: Mina David Reason for Consult: liver biopsy 11/02/18 09:53 TCU [Evaluation for TRCU] Routine Comment: Physician Instructions: Reason For Exam: PT Hospital Course - Lab Results Lab Results: Most Recent Lab Values WBC 3.9 10^3/uL (4.5-11.0) L 11/02/18 06:45 RBC 4.33 10^6/uL (3.5-6.1) 11/02/18 06:45 Hgb 11.6 g/dL (12.0-16.0) L 11/02/18 06:45 Hct 37.6 % (36.0-48.0) 11/02/18 06:45 MCV 86.8 fl (80.0-105.0) 11/02/18 06:45 MCH 26.8 pg (25.0-35.0) 11/02/18 06:45 MCHC 30.9 g/dl (31.0-37.0) L 11/02/18 06:45 RDW 23.1 % (11.5-14.5) H 11/02/18 06:45 Plt Count 248 10^3/uL (120.0-450.0) 11/02/18 06:45 MPV 11.9 fl (7.0-11.0) H 11/02/18 06:45 Neut % (Auto) 42.9 % (50.0-68.0) L 11/01/18 07:45 Lymph % (Auto) 44.4 % (22.0-35.0) H 11/01/18 07:45 [place] % (Auto) 6.7 % (1.0-6.0) H 11/01/18 07:45 Eos % (Auto) 5.5 % (1.5-5.0) H 11/01/18 07:45 Baso % (Auto) 0.5 % (0.0-3.0) 11/01/18 07:45 Lymph # (Auto) 1.9 (1.2-3.4) 11/01/18 07:45 [place] # (Auto) 0.3 (0.1-0.6) 11/01/18 07:45 Eos # (Auto) 0.2 (0.0-0.7) 11/01/18 07:45 Baso # (Auto) 0.02 K/mm3 (0.0-2.0) 11/01/18 07:45 Absolute Neuts (auto) 1.87 (1.4-6.5) 11/01/18 07:45 PT 12.5 SECONDS (9.4-12.5) 10/29/18 10:35 INR 1.11 10/29/18 10:35 APTT 36.9 Seconds (26.9-38.3) 10/29/18 10:35 D-Dimer, Quantitative 678 ng/mlDDU (0-243) H 10/21/18 23:00 Sodium 142 mmol/L (132-148) 11/02/18 06:45 Potassium 4.3 mmol/L (3.6-5.0) 11/02/18 06:45 Chloride 108 mmol/L (98-107) H 11/02/18 06:45 Carbon Dioxide 28 mmol/L (21-33) 11/02/18 06:45 Anion Gap 11 (10-20) 11/02/18 06:45 BUN 19 mg/dL (7-21) 11/02/18 06:45 Creatinine 0.6 mg/dl (0.7-1.2) L 11/02/18 06:45 Est GFR ( Amer) > 60 11/02/18 06:45 Est GFR (Non-Af Amer) > 60 11/02/18 06:45 POC Glucose (mg/dL) 111 mg/dL (65-110) H 10/23/18 14:12 Random Glucose 89 mg/dL (70-110) 11/02/18 06:45 Hemoglobin A1c 5.1 % (4.2-6.5) 10/22/18 06:00 Calcium 9.0 mg/dL (8.4-10.5) 11/02/18 06:45 Phosphorus 5.9 mg/dL (2.5-4.5) H 10/26/18 06:00 Magnesium 2.4 mg/dL (1.7-2.2) H 10/26/18 06:00 Iron 87 ug/dL (45-180) 10/26/18 11:00 TIBC 367 ug/dL (265-497) 10/26/18 11:00 % Saturation 24 % (20-55) 10/26/18 11:00 Ferritin 68.4 ng/mL 10/26/18 11:00 Total Bilirubin 0.2 mg/dL (0.2-1.3) 11/02/18 06:45 AST 507 U/L (14-36) H D 11/02/18 06:45 ALT 810 U/L (7-56) H 11/02/18 06:45 Alkaline Phosphatase 134 U/L (38-126) H 11/02/18 06:45 Lactate Dehydrogenase 478 U/L (333-699) 10/22/18 12:15 Total Creatine Kinase 122 U/L (35-230) 10/27/18 10:40 Troponin I < 0.01 ng/mL 10/24/18 07:00 Total Protein 6.7 g/dL (5.8-8.3) 11/02/18 06:45 Albumin 3.7 g/dL (3.0-4.8) 11/02/18 06:45 Globulin 3.0 gm/dL 11/02/18 06:45 Albumin/Globulin Ratio 1.3 (1.1-1.8) 11/02/18 06:45 A1AT Clinical Indicatr Not given 10/28/18 07:00 A1AT Referred By Not given 10/28/18 07:00 Ghevf-6-Eitovemguiy 177 mg/dL (83-199) 10/28/18 07:00 Ceruloplasmin 32 mg/dL (18-53) 10/27/18 11:30 Triglycerides 61 mg/dL (35-160) 10/22/18 06:00 Cholesterol 142 mg/dL (130-200) 10/22/18 06:00 LDL Cholesterol Direct 71 mg/dL (0-129) 10/22/18 06:00 HDL Cholesterol 50 mg/dL (29-60) 10/22/18 06:00 Vitamin B12 743 pg/mL (239-931) 10/27/18 11:30 Folate 5.4 ng/mL 10/27/18 11:30 TSH 3rd Generation 3.51 mIU/mL (0.46-4.68) 10/26/18 11:00 Urine Color Yellow (YELLOW) 10/22/18 14:30 Urine Appearance Clear (CLEAR) 10/22/18 14:30 Urine pH 7.0 (4.7-8.0) 10/22/18 14:30 Ur Specific [place] 1.015 (1.005-1.035) 10/22/18 14:30 Urine Protein Negative mg/dL (<30 mg/dL) 10/22/18 14:30 Urine Glucose (UA) Negative mg/dL (NEGATIVE) 10/22/18 14:30 Urine Ketones Negative mg/dL (NEGATIVE) 10/22/18 14:30 Urine Blood Negative (NEGATIVE) 10/22/18 14:30 Urine Nitrate Negative (NEGATIVE) 10/22/18 14:30 Urine Bilirubin Negative (NEGATIVE) 10/22/18 14:30 Urine Urobilinogen 0.2 E.U./dL (<1 E.U./dL) 10/22/18 14:30 Ur Leukocyte Esterase Small Deepak/uL (NEGATIVE) H 10/22/18 14:30 Urine RBC 0 - 2 /hpf (0-2) 10/22/18 14:30 Urine WBC 5 - 10 /hpf (0-6) H 10/22/18 14:30 Ur Epithelial Cells 3 - 4 /hpf (0-5) 10/22/18 14:30 Urine Bacteria Many /hpf (NONE) 10/22/18 14:30 IgG 806.7 mg/dL (700.0-1600.0) 10/27/18 11:30 PAPITO Screen Negative (Negative) 10/26/18 13:45 Anti-Mitochondrial Ab Negative (Negative) 10/26/18 13:45 Anti-Smooth Muscle Ab Negative (Negative) 10/26/18 13:45 RPR Nonreactive (NONREACTIVE) 10/28/18 07:00 EBV Capsid Ag IgG Ab 52.00 U/mL H 10/28/18 07:00 EBV Capsid Ag IgM Ab <36.00 U/mL 10/28/18 07:00 EBV EA IgG Ab Interp <9.00 U/mL (<9.00) 10/28/18 07:00 EBV Nuclear Antigen Ab 105.00 U/mL H 10/28/18 07:00 EBV Interpretation See note 10/28/18 07:00 Hepatitis A IgM Ab Negative (NEGATIVE) 10/26/18 11:00 Hep Bs Antigen Negative (NEGATIVE) 10/26/18 11:00 Hep B Core IgM Ab Negative (NEGATIVE) 10/26/18 11:00 Hepatitis C Antibody Negative (NEGATIVE) 10/26/18 11:00 HSV I IgG Ab 4.72 index H 10/28/18 07:00 HSV II IgG 16.70 index H 10/28/18 07:00 HIV 1&2 Ag/Ab, 4th Gen Nonreactive (Nonreactive) 10/29/18 09:00 Attending/Attestation - Attestation I have personally seen and examined this patient.: Yes I have fully participated in the care of the patient.: Yes I have reviewed all pertinent clinical information, including history, physical exam and plan: Yes Notes (Text): 11/02/18 15:58 48 year old female with past medical history of CVA with residual left sided weakness, epilepsy, and fibromyalgia who presented after seizure episode. CT head and MRI brain reviewed as above. Neurology has been following and patient is on gabapentin. She was also on topamax which was discontinued due to elevated LFTs. GI has been following for transaminitis. Abdominal ultrasound showed hepatic steatosis. Hepatitis panel was negative. LFTs slightly improved today. She is s/p liver biopsy yesterday. She also initially complained of chest pain. Serial cardiac enzymes have been negative. Cardiology has recommended outpatient cardiac cath. Patient will be transferred to TCU today. Will follow and monitor LFTs closely. Pending liver biopsy results as well. Tia Chanel MD Hospitalist.
[2018-11-02] MEDS ORDERED: Lidocaine 5% Patch TD ONE (22:45)
== END 2018-11-02 17:46 | DRG 101 ==
LOC: ED 22:52 → ERH 10-22 00:46 → 2RSO 10-22 02:09 → OBSVTOIN 10-23 13:59 → 5RNO 10-26 13:39 → 5RSO 10-26 19:39
PROVIDERS: ADMIT Internal Medicine; ATTEND Internal Medicine
PROC: 0FB03ZX Excision of Liver, Percutaneous Approach, Diagnostic (ICD-10-PCS; principal; 2018-11-01 16:30)
PROC: 3E02340 Introduction of Influenza Vaccine into Muscle, Percutaneous Approach (ICD-10-PCS; 2018-11-02)
PROC: 3E0234Z Introduction of Serum, Toxoid and Vaccine into Muscle, Percutaneous Approach (ICD-10-PCS; 2018-11-02)
DX: G40.909 Epilepsy, unspecified, not intractable, without status epilepticus (principal); I69.354 Hemiplegia and hemiparesis following cerebral infarction affecting left non-dominant side; G62.9 Polyneuropathy, unspecified; M79.7 Fibromyalgia; R07.2 Precordial pain; K76.0 Fatty (change of) liver, not elsewhere classified; R79.1 Abnormal coagulation profile; F31.9 Bipolar disorder, unspecified; R07.89 Other chest pain; K59.00 Constipation, unspecified; R74.0 Nonspecific elevation of levels of transaminase and lactic acid dehydrogenase [LDH]; T42.6X5A Adverse effect of other antiepileptic and sedative-hypnotic drugs, initial encounter; E66.9 Obesity, unspecified; K64.4 Residual hemorrhoidal skin tags; Z98.84 Bariatric surgery status; Z23 Encounter for immunization; Z80.0 Family history of malignant neoplasm of digestive organs

== ENCOUNTER 2018-11-02 17:51 | Inpatient (IN) | payer OTHER ==
[2018-11-02] MEDS ORDERED: Levalbuterol 0.63 MG/3 ML Inhal Soln UD IH PRN (18:15)
[2018-11-02] MEDS ORDERED: Petrolatum Oint Foilpak (5 gm) TOP PRN (18:15)
[2018-11-02 18:54] VITALS: BMI 27.6
[2018-11-02] MEDS: Lidocaine 5% Patch TD SCH (21:00)
[2018-11-03] MEDS ORDERED: Pantoprazole 40 mg EC Tab PO SCH (06:00)
[2018-11-03] MEDS: Enoxaparin 40 mg Syringe SC SCH (06:02)
[2018-11-03] MEDS ORDERED: oxyCODONE 5 mg Immediate Release Tab PO PRN ×2 (09:32→09:47)
[2018-11-03] MEDS ORDERED: Lidocaine 5% Patch TD SCH (10:00)
[2018-11-03] MEDS: Lidocaine 5% Patch TD SCH (10:00)
[2018-11-03] MEDS ORDERED: oxyCODONE 5 mg Immediate Release Tab PO SCH (10:00)
--- NOTE | 2018-11-03 10:47 | CP.PCM.CON ---
<Karan Mancia - Last Filed: 11/03/18 15:46> History of Present Illness - History of Present Illness History of Present Illness: Karan Mancia PGY2 Neurology Consult note for Dr. Ferris Consulted By: Dr. Chanel Patient is a 48 year old female with past medical history of CVA with residual left sided weakness, epilepsy, obesity, anemia, fibromyalgia, neuropathy, seasonal allergies complaining of shooting pain down right leg. Patient says pain started last night, denies any sensory or motor loss. Says she is unable to sleep. Denies urine bladder or bowel incontinence. Recently her lyrica as been s topped due to elevated LFTS. Denies chest pain, SOB, weakness, headaches, change in vision, or any other complaints. PMH: CVA (2005), epilepsy, obesity, anemia, fibromyalgia, neuropathy, fibroids, endometriosis, seasonal disorder PSH: gastric bypass, hernia, cholecystectomy, , total hysterectomy, nerve block for lumbago, liver biopsy SHx: denies alcohol, tobacco, illicit drug use FHx: mother (lupus), father (bone cancer) Allergies: iodine, morphine, tramadol, metaclopramide, phenytoin, zolpidem PMD: Dr. Hearn Pharmacy: [facility] Review of Systems - Musculoskeletal Musculoskeletal: Radiating Pain into Limb. absent: Muscle Weakness, Numbness - Neurological Neurological: Radicular Pain. absent: Burning Sensations, Confusion, Disequilibrium, Dizziness, Numbness, Focal Weakness, Loss of Vision, Sensory Deficit, Syncope, Weakness Past Patient History - Past Social History Smoking Status: Never Smoked - CARDIAC Hx Cardiac Disorders: No - PULMONARY Hx Respiratory Disorders: No - NEUROLOGICAL Hx Neurological Disorder: Yes HX Cerebrovascular Accident: Yes (2005) Hx Seizures: Yes - HEMATOLOGICAL/ONCOLOGICAL Hx Anemia: Yes - MUSCULOSKELETAL/RHEUMATOLOGICAL Hx Falls: Yes - GASTROINTESTINAL Hx Gastrointestinal Disorders: Yes (HEMORRHOIDS) - GENITOURINARY/GYNECOLOGICAL Hx Genitourinary Disorders: No Hx Reproductive Disorders: Yes (HYSTERECTOMY) - PSYCHIATRIC Hx Psychophysiologic Disorder: No Hx Substance Use: No - SURGICAL HISTORY Hx Surgeries: Yes Meds Allergies/Adverse Reactions: Allergies Allergy/AdvReac Type Severity Reaction Status Date / Time iodine Allergy ANAPHYLAXIS Verified 10/21/18 22:54 morphine Allergy NAUSEA Verified 10/21/18 22:54 tramadol Allergy ITCHING Verified 10/21/18 22:54 - Medications Medications: Current Medications Aspirin (Ecotrin) 81 mg PO 0800 CE; Protocol Last Admin: 11/03/18 07:55 Dose: 81 mg Duloxetine HCl (Cymbalta) 60 mg PO DAILY CE; Protocol Last Admin: 11/03/18 10:00 Dose: 60 mg Emollient Ointment (Vaseline Oint) 0 gm TOP BID PRN; Protocol PRN Reason: Dry skin Enoxaparin Sodium (Lovenox) 40 mg SC 0600 CE; Protocol Last Admin: 11/03/18 06:02 Dose: 40 mg Famotidine (Pepcid) 20 mg PO HS CE; Protocol Last Admin: 11/02/18 21:02 Dose: 20 mg Gabapentin (Neurontin) 1,200 mg PO TID CE; Protocol Last Admin: 11/03/18 10:02 Dose: 1,200 mg Hydrocortisone (Anusol-Hc) 0 gm GA BID CE; Protocol Levalbuterol HCl (Xopenex) 0.63 mg IH [id number] PRN; Protocol PRN Reason: Shortness of Breath Lidocaine (Lidoderm) 1 ea TD DAILY CE; Protocol Last Admin: 11/03/18 10:00 Dose: 1 ea Lorazepam (Ativan) 2 mg PO Q4H PRN; Protocol PRN Reason: Anxiety Montelukast Sodium (Singulair) 10 mg PO HS CE; Protocol Last Admin: 11/02/18 21:02 Dose: 10 mg Multi-Ingredient Ointment (Prep-Hem) 0 ea TOP DAILY CE; Protocol Ondansetron HCl (Zofran Inj) 4 mg IVP Q6H PRN; Protocol PRN Reason: Nausea/Vomiting Oxycodone HCl (Oxycodone Immediate Release Tab) 2.5 mg PO DAILY PRN; Protocol PRN Reason: Pain, severe (8-10) Pantoprazole Sodium (Protonix Ec Tab) 40 mg PO 0600 CE; Protocol Last Admin: 11/03/18 06:02 Dose: 40 mg Polyethylene Glycol (Miralax) 17 gm PO BID CE; Protocol Sennosides (Senokot Tab) 8.6 mg PO DAILY CE; Protocol Last Admin: 11/03/18 10:04 Dose: 8.6 mg Topiramate (Topamax) 150 mg PO DAILY CE; Protocol Physical Exam - Constitutional Appears: Non-toxic, No Acute Distress - Head Exam Head Exam: ATRAUMATIC, NORMAL INSPECTION, NORMOCEPHALIC - Eye Exam Eye Exam: EOMI, Normal appearance - ENT Exam ENT Exam: Mucous Membranes Moist - Respiratory Exam Respiratory Exam: Clear to Auscultation Bilateral, NORMAL BREATHING PATTERN - Cardiovascular Exam Cardiovascular Exam: REGULAR RHYTHM - Extremities Exam Extremities exam: Positive for: full ROM, pedal pulses present. Negative for: pedal edema - Neurological Exam Neurological exam: Alert, CN II-XII Intact, Oriented x3, Reflexes Normal Additional comments: 5/5 U and LE strength on right side, 3/5 on left upper and lower extremity (residual weakness from stroke), no sensory or motor deficits Results - Vital Signs Recent Vital Signs: Last Vital Signs Temp 97.5 F L 11/02/18 18:54 Pulse 80 11/02/18 18:54 Resp 16 11/02/18 18:54 BP 97/68 L 11/02/18 18:54 Pulse Ox - Labs Result Diagrams: 11/03/18 11:10 11/03/18 11:10 Assessment & Plan - Assessment and Plan (Free Text) Plan: 1. Neuropathy -increase gabapentin to 1500 TID -continue to monitor <Diego Ferris - Last Filed: 11/03/18 19:03> Meds - Medications Medications: Current Medications Aspirin (Ecotrin) 81 mg PO 0800 CE; Protocol Last Admin: 11/03/18 07:55 Dose: 81 mg Duloxetine HCl (Cymbalta) 60 mg PO DAILY [facility]; Protocol Last Admin: 11/03/18 10:00 Dose: 60 mg Emollient Ointment (Vaseline Oint) 0 gm TOP BID PRN; Protocol PRN Reason: Dry skin Enoxaparin Sodium (Lovenox) 40 mg SC 0600 CE; Protocol Last Admin: 11/03/18 06:02 Dose: 40 mg Famotidine (Pepcid) 20 mg PO HS CE; Protocol Last Admin: 11/02/18 21:02 Dose: 20 mg Gabapentin (Neurontin) 1,500 mg PO TID [facility]; Protocol Gabapentin (Neurontin) 1,500 mg PO ONCE ONE; Protocol Stop: 11/03/18 23:01 Hydrocortisone (Anusol-Hc) 0 gm GA BID CE; Protocol Last Admin: 11/03/18 17:30 Dose: 1 applic Levalbuterol HCl (Xopenex) 0.63 mg IH [id number] PRN; Protocol PRN Reason: Shortness of Breath Lidocaine (Lidoderm) 1 ea TD DAILY CE; Protocol Last Admin: 11/03/18 10:00 Dose: 1 ea Lorazepam (Ativan) 2 mg PO Q4H PRN; Protocol PRN Reason: Anxiety Montelukast Sodium (Singulair) 10 mg PO HS CE; Protocol Last Admin: 11/02/18 21:02 Dose: 10 mg Multi-Ingredient Ointment (Prep-Hem) 0 ea TOP DAILY CE; Protocol Last Admin: 11/03/18 12:21 Dose: 1 applic Ondansetron HCl (Zofran Tab) 4 mg PO Q6H PRN; Protocol PRN Reason: Nausea/Vomiting Last Admin: 11/03/18 14:19 Dose: 4 mg Pantoprazole Sodium (Protonix Ec Tab) 40 mg PO 0600 CE; Protocol Last Admin: 11/03/18 06:02 Dose: 40 mg Polyethylene Glycol (Miralax) 17 gm PO BID CE; Protocol Last Admin: 11/03/18 17:31 Dose: 17 gm Sennosides (Senokot Tab) 8.6 mg PO DAILY CE; Protocol Last Admin: 11/03/18 10:04 Dose: 8.6 mg Topiramate (Topamax) 150 mg PO DAILY CE; Protocol Results - Vital Signs Recent Vital Signs: Last Vital Signs Temp 98.2 F 11/03/18 16:00 Pulse 99 H 11/03/18 16:00 Resp 18 11/03/18 16:00 BP 118/77 11/03/18 16:02 Pulse Ox 95 11/03/18 16:00 - Labs Result Diagrams: 11/03/18 11:10 11/03/18 11:10 Labs: Laboratory Results - last 24 hr 11/03/18 11/03/18 11:10 11:10 WBC 7.1 D RBC 4.19 Hgb 11.4 L Hct 36.6 MCV 87.4 MCH 27.2 MCHC 31.1 RDW 23.3 H Plt Count 250 MPV 11.4 H Sodium 142 Potassium 3.9 Chloride 106 Carbon Dioxide 28 Anion Gap 12 BUN 15 Creatinine 0.7 Est GFR ( Amer) > 60 Est GFR (Non-Af Amer) > 60 Random Glucose 111 H Calcium 9.0 Total Bilirubin 0.2 AST 213 H D ALT 597 H Alkaline Phosphatase 121 Total Protein 6.8 Albumin 3.6 Globulin 3.2 Albumin/Globulin Ratio 1.1 Attending/Attestation - Attestation I have personally seen and examined this patient.: Yes I have fully participated in the care of the patient.: Yes I have reviewed all pertinent clinical information: Yes Notes (Text): I agree with the assessment and plan. Neuropathy worsened likely due to stopping Lyrica as there was concern for liver disease. Will increase neurontin to compensate.
[2018-11-03] MEDS: POLYETHYLENE GLYCOL 3350 17 GM/Dose PACKET PO SCH ×2 (11:00→17:31)
[2018-11-03 11:18] LABS: HEMOGLOBIN 11.4 g/dL (12.0-16.0); MEAN CELL VOLUME 87.4 fl (80.0-105.0); MEAN CORPUSCULAR HEMOGLOBIN 27.2 pg (25.0-35.0); MEAN CORPUSCULAR HGB CONC 31.1 g/dl (31.0-37.0); MEAN PLATELET VOLUME 11.4 fl (7.0-11.0); RBC 4.19 10^6/uL (3.5-6.1); RED CELL DISTRIBUTION WIDTH 23.3 % (11.5-14.5); WHITE BLOOD COUNT 7.1 10^3/uL (4.5-11.0)
[2018-11-03 11:30] LABS: ALB/GLOB RATIO 1.1 (1.1-1.8); ALBUMIN 3.6 g/dL (3.0-4.8); ALT/SGPT 597 U/L (7-56); AST/SGOT 213 U/L (14-36); BLOOD UREA NITROGEN 15 mg/dL (7-21); GFR NON-AFRICAN AMERICAN > 60
[2018-11-03] MEDS: Hydrocortisone 2.5% Rectal Cream(30 gm) PR SCH ×2 (12:19→17:30)
[2018-11-03] MEDS: Hemorrohoidal Ointment (2 oz) TOP SCH (12:21)
--- NOTE | 2018-11-03 12:51 | CP.PCM.HP ---
<Nestor Savage - Last Filed: 11/03/18 12:44> History of Present Illness - History of Present Illness History of Present Illness: Patient is a 48 year old female with past medical history of CVA with residual left sided weakness, epilepsy, obesity, anemia, fibromyalgia, neuropathy, seasonal disorder presented to our emergency department s/p seizure episode witnessed by family on 10/22/18. Patient's last seizure was several years ago. Patient had concomitant constant chest discomfort localized to mid anterior chest wall, not associated with exertion, dyspnea or diaphoresis. Patients admission complicated by transaminitis. Hepatitis panel was negative. Hepatoxic medications have been held. Patient had a liver biopsy done by interventional radiology with results pending. Patient admitted to TCU for continued physical therapy secondary to deconditioning. Patient complains of increasing lower extremity pain and difficulty sleeping because of worsening neuropathy. Otherwise, 12 point ROS negative. PMH: CVA (2005), epilepsy, obesity, anemia, fibromyalgia, neuropathy, fibroids, endometriosis, seasonal disorder PSH: gastric bypass, hernia, cholecystectomy, , total hysterectomy, nerve block for lumbago, liver biopsy SHx: denies alcohol, tobacco, illicit drug use FHx: mother (lupus), father (bone cancer) Allergies: iodine, morphine, tramadol, metaclopramide, phenytoin, zolpidem PMD: Dr. Hearn Pharmacy: [facility] Present on Admission - Present on Admission Any Indicators Present on Admission: No Review of Systems - Constitutional Constitutional: Weakness. absent: Chills, Fever - EENT Eyes: absent: Blurred Vision, Change in Vision Nose/Mouth/Throat: absent: Nasal Congestion, Nasal Discharge - Cardiovascular Cardiovascular: absent: Chest Pain, Dyspnea - Respiratory Respiratory: absent: Cough, Dyspnea - Gastrointestinal Gastrointestinal: Abdominal Pain. absent: Nausea, Vomiting - Genitourinary Genitourinary: absent: Difficulty Urinating, Dysuria - Musculoskeletal Musculoskeletal: Numbness (lower extremity neuropathy ). absent: Back Pain, Neck Pain - Integumentary Integumentary: absent: Bleeding Lesions, Changing Lesions - Neurological Neurological: Restless Legs, Tingling. absent: Dizziness, Headaches - Psychiatric Psychiatric: Abnormal Sleep Pattern. absent: Depression Past Patient History - Past Social History Smoking Status: Never Smoked - CARDIAC Hx Cardiac Disorders: No - PULMONARY Hx Respiratory Disorders: No - NEUROLOGICAL Hx Neurological Disorder: Yes HX Cerebrovascular Accident: Yes (2005) Hx Seizures: Yes - HEMATOLOGICAL/ONCOLOGICAL Hx Anemia: Yes - MUSCULOSKELETAL/RHEUMATOLOGICAL Hx Falls: Yes - GASTROINTESTINAL Hx Gastrointestinal Disorders: Yes (HEMORRHOIDS) - GENITOURINARY/GYNECOLOGICAL Hx Genitourinary Disorders: No Hx Reproductive Disorders: Yes (HYSTERECTOMY) - PSYCHIATRIC Hx Psychophysiologic Disorder: No Hx Substance Use: No - SURGICAL HISTORY Hx Surgeries: Yes Meds Allergies/Adverse Reactions: Allergies Allergy/AdvReac Type Severity Reaction Status Date / Time iodine Allergy ANAPHYLAXIS Verified 10/21/18 22:54 morphine Allergy NAUSEA Verified 10/21/18 22:54 tramadol Allergy ITCHING Verified 10/21/18 22:54 Physical Exam - Constitutional Appears: Well, Non-toxic, No Acute Distress - Head Exam Head Exam: ATRAUMATIC, NORMAL INSPECTION, NORMOCEPHALIC - Eye Exam Eye Exam: EOMI - ENT Exam ENT Exam: Mucous Membranes Moist - Respiratory Exam Respiratory Exam: NORMAL BREATHING PATTERN. absent: Wheezes, Respiratory Distress - Cardiovascular Exam Cardiovascular Exam: REGULAR RHYTHM, +S1, +S2. absent: Tachycardia, Systolic Murmur - GI/Abdominal Exam GI & Abdominal Exam: Normal Bowel Sounds, Soft, Tenderness Additional comments: RUQ tenderness - Extremities Exam Extremities exam: Positive for: normal inspection, pedal pulses present. Negative for: pedal edema - Neurological Exam Neurological exam: Alert, Oriented x3 - Psychiatric Exam Psychiatric exam: Normal Affect, Normal Mood - Skin Skin Exam: Dry, Intact, Normal Color, Warm Results - Vital Signs Recent Vital Signs: Last Vital Signs Temp 98.2 F 11/03/18 10:00 Pulse 90 11/03/18 10:00 Resp 18 11/03/18 10:00 BP 118/77 11/03/18 10:00 Pulse Ox 100 11/03/18 10:00 - Labs Result Diagrams: 11/03/18 11:10 11/03/18 11:10 Labs: Laboratory Results - last 24 hr 11/03/18 11/03/18 11:10 11:10 WBC 7.1 D RBC 4.19 Hgb 11.4 L Hct 36.6 MCV 87.4 MCH 27.2 MCHC 31.1 RDW 23.3 H Plt Count 250 MPV 11.4 H Sodium 142 Potassium 3.9 Chloride 106 Carbon Dioxide 28 Anion Gap 12 BUN 15 Creatinine 0.7 Est GFR ( Amer) > 60 Est GFR (Non-Af Amer) > 60 Random Glucose 111 H Calcium 9.0 Total Bilirubin 0.2 AST 213 H D ALT 597 H Alkaline Phosphatase 121 Total Protein 6.8 Albumin 3.6 Globulin 3.2 Albumin/Globulin Ratio 1.1 Assessment & Plan - Assessment and Plan (Free Text) Assessment: 48 year old female with past medical history of CVA with residual left sided weakness, epilepsy, and fibromyalgia, presenting s/p seizure episode. Hospital stay complicated by worsening transaminitis. Admitted to TCU 2/2 to deconditioning. Plan: Transaminitis, resolving - Decrease in LFTs today - Pending IR biopsy pathology results - Possibly 2/2 hepatotoxic medications which are on hold - Topimax, protonix, duloxetine and singular on hold, as these medications thought to be leading to transaminitis - Abd US showed hepatic steatosis without focal liver abnormality - Will continue to monitor and avoid hepatotoxic medications - 2.5mg oxycodone PO daily prior to PT sessions - Lidoderm patch in RUQ - Continue physical therapy sessions Seizure - CT head 10/21: possible tiny punctate petechial hemorrhage in left basal ganglia vs. artifact - Repeat CT head 10/23: no interval change from previous study - MRI Brain 10/26: no acute abnormalities - Ativan PRN - EEG - awaiting report - Seizure/aspiration precautions - Holding home topamax 2/2 elevated LFTs - Gabapentin 1200 TID per neuro - Neurology following Atypical chest pain, resolved - Troponin negx3 - ECHO from 09/2018 shows EF 60-65% - EKG: NSR HR 67 - TSH: 3.09 - ASA 81 mg PO daily - Oxygen NC - Cardiology: recommended outpt follow up for cath Constipation, resolved - Continue miralax/senna External Hemorrhoid - Will continue hemorrhoid ointment as needed Elevated d-dimer - V/Q scan (-) for PE - Lovenox for DVT PPX PPX GI: Pepcid DVT: Lovenox <Tia Chanel - Last Filed: 11/03/18 13:24> Results - Vital Signs Recent Vital Signs: Last Vital Signs Temp 98.2 F 11/03/18 10:00 Pulse 90 11/03/18 10:00 Resp 18 11/03/18 10:00 BP 118/77 11/03/18 10:00 Pulse Ox 100 11/03/18 10:00 - Labs Result Diagrams: 11/03/18 11:10 11/03/18 11:10 Labs: Laboratory Results - last 24 hr 11/03/18 11/03/18 11:10 11:10 WBC 7.1 D RBC 4.19 Hgb 11.4 L Hct 36.6 MCV 87.4 MCH 27.2 MCHC 31.1 RDW 23.3 H Plt Count 250 MPV 11.4 H Sodium 142 Potassium 3.9 Chloride 106 Carbon Dioxide 28 Anion Gap 12 BUN 15 Creatinine 0.7 Est GFR ( Amer) > 60 Est GFR (Non-Af Amer) > 60 Random Glucose 111 H Calcium 9.0 Total Bilirubin 0.2 AST 213 H D ALT 597 H Alkaline Phosphatase 121 Total Protein 6.8 Albumin 3.6 Globulin 3.2 Albumin/Globulin Ratio 1.1 Attending/Attestation - Attestation I have personally seen and examined this patient.: Yes I have fully participated in the care of the patient.: Yes I have reviewed all pertinent clinical information: Yes Notes (Text): 11/03/18 13:20 48 year old female with past medical history of CVA with residual left sided weakness, epilepsy, and fibromyalgia who presented after seizure episode. CT head and MRI brain reviewed as above. Neurology has been following and patient is on high dose gabapentin. Patient complains of bilateral LE neuropathy. Neurology follow up is requested. She was also on topamax and cymbalta which were discontinued due to elevated LFTs. GI has been following for transaminitis. Abdominal ultrasound showed hepatic steatosis. Hepatitis panel was negative. LFTs are slowly improving. She is s/p liver biopsy earlier this week with pending pathology report. She also initially complained of chest pain. Serial cardiac enzymes have been negative. Cardiology has recommended outpatient cardiac cath. Continue with physical therapy as tolerated while in TCU. Tia Chanel MD Hospitalist.
[2018-11-04] MEDS: Enoxaparin 40 mg Syringe SC SCH (05:28)
[2018-11-04] MEDS: Hydrocortisone 2.5% Rectal Cream(30 gm) PR SCH ×2 (10:32→17:31)
[2018-11-04] MEDS: POLYETHYLENE GLYCOL 3350 17 GM/Dose PACKET PO SCH ×2 (10:33→17:32)
[2018-11-04] MEDS: Lidocaine 5% Patch TD SCH (10:33)
[2018-11-04] MEDS: Hemorrohoidal Ointment (2 oz) TOP SCH (10:36)
--- NOTE | 2018-11-04 10:42 | CP.PCM.PN ---
<Karan Mancia - Last Filed: 11/04/18 17:25> Subjective - Date & Time of Evaluation Date of Evaluation: 11/04/18 Time of Evaluation: 06:00 - Subjective Subjective: Patient seen and evaluated bedside. No acute issues overnight. Patient states the shooting sensation in her legs is still present but improved slightly. denies any other complaints. Objective - Vital Signs/Intake and Output Vital Signs (last 24 hours): Temp Pulse Resp BP Pulse Ox 98.2 F 99 H 18 118/77 95 11/03/18 16:00 11/03/18 16:00 11/03/18 16:00 11/03/18 16:02 11/03/18 16:00 - Medications Medications: Current Medications Aspirin (Ecotrin) 81 mg PO 0800 CE; Protocol Last Admin: 11/04/18 07:45 Dose: 81 mg Duloxetine HCl (Cymbalta) 60 mg PO DAILY CE; Protocol Last Admin: 11/03/18 10:00 Dose: 60 mg Emollient Ointment (Vaseline Oint) 0 gm TOP BID PRN; Protocol PRN Reason: Dry skin Enoxaparin Sodium (Lovenox) 40 mg SC 0600 CE; Protocol Last Admin: 11/04/18 05:28 Dose: 40 mg Famotidine (Pepcid) 20 mg PO HS CE; Protocol Last Admin: 11/03/18 21:19 Dose: 20 mg Gabapentin (Neurontin) 1,500 mg PO TID CE; Protocol Last Admin: 11/04/18 10:35 Dose: 1,500 mg Hydrocortisone (Anusol-Hc) 0 gm UT BID CE; Protocol Last Admin: 11/04/18 10:32 Dose: 1 applic Levalbuterol HCl (Xopenex) 0.63 mg IH [id number] PRN; Protocol PRN Reason: Shortness of Breath Lidocaine (Lidoderm) 1 ea TD DAILY CE; Protocol Last Admin: 11/04/18 10:33 Dose: 1 ea Lorazepam (Ativan) 2 mg PO Q4H PRN; Protocol PRN Reason: Anxiety Montelukast Sodium (Singulair) 10 mg PO HS CE; Protocol Last Admin: 11/02/18 21:02 Dose: 10 mg Multi-Ingredient Ointment (Prep-Hem) 0 ea TOP DAILY CE; Protocol Last Admin: 11/04/18 10:36 Dose: 1 applic Ondansetron HCl (Zofran Tab) 4 mg PO Q6H PRN; Protocol PRN Reason: Nausea/Vomiting Last Admin: 11/04/18 07:46 Dose: 4 mg Pantoprazole Sodium (Protonix Ec Tab) 40 mg PO 0600 CE; Protocol Last Admin: 11/03/18 06:02 Dose: 40 mg Polyethylene Glycol (Miralax) 17 gm PO BID CE; Protocol Last Admin: 11/04/18 10:33 Dose: 17 gm Sennosides (Senokot Tab) 8.6 mg PO DAILY CE; Protocol Last Admin: 11/04/18 10:36 Dose: 8.6 mg Topiramate (Topamax) 150 mg PO DAILY CE; Protocol - Labs Labs: 11/03/18 11:10 11/03/18 11:10 - Constitutional Appears: Non-toxic, No Acute Distress - Head Exam Head Exam: ATRAUMATIC, NORMAL INSPECTION, NORMOCEPHALIC - Eye Exam Eye Exam: EOMI, Normal appearance - ENT Exam ENT Exam: Mucous Membranes Moist - Respiratory Exam Respiratory Exam: Clear to Ausculation Bilateral - Cardiovascular Exam Cardiovascular Exam: REGULAR RHYTHM - Neurological Exam Neurological Exam: Alert, Awake, Oriented x3, Reflexes Normal Neuro motor strength exam: Left Upper Extremity: 4, Right Upper Extremity: 5, Left Lower Extremity: 4, Right Lower Extremity: 5 Assessment and Plan - Assessment and Plan (Free Text) Plan: 1. Worsening Neuropathy of LE -likely secondary to lyrica discontinuation due to elevated liver function -continue gabapentin to 1500 TID -encourage physical therapy -pain management as per primary team -continue to monitor <Diego Ferris - Last Filed: 11/05/18 16:25> Objective - Vital Signs/Intake and Output Vital Signs (last 24 hours): Temp Pulse Resp BP Pulse Ox 97.8 F 72 18 99/66 L 96 11/04/18 16:00 11/04/18 16:00 11/04/18 16:00 11/04/18 16:00 11/04/18 16:00 - Medications Medications: Current Medications Aspirin (Ecotrin) 81 mg PO 0800 CE; Protocol Last Admin: 11/05/18 08:12 Dose: 81 mg Duloxetine HCl (Cymbalta) 60 mg PO DAILY CE; Protocol Last Admin: 11/03/18 10:00 Dose: 60 mg Emollient Ointment (Vaseline Oint) 0 gm TOP BID PRN; Protocol PRN Reason: Dry skin Enoxaparin Sodium (Lovenox) 40 mg SC 0600 CE; Protocol Last Admin: 11/05/18 06:29 Dose: 40 mg Famotidine (Pepcid) 20 mg PO HS CE; Protocol Last Admin: 11/04/18 21:17 Dose: 20 mg Gabapentin (Neurontin) 1,500 mg PO TID CE; Protocol Last Admin: 11/05/18 13:46 Dose: 1,500 mg Hydrocortisone (Anusol-Hc) 0 gm UT BID CE; Protocol Last Admin: 11/05/18 10:05 Dose: 1 applic Levalbuterol HCl (Xopenex) 0.63 mg IH [id number] PRN; Protocol PRN Reason: Shortness of Breath Lidocaine (Lidoderm) 1 ea TD DAILY CE; Protocol Last Admin: 11/05/18 10:06 Dose: 1 ea Lorazepam (Ativan) 2 mg PO Q4H PRN; Protocol PRN Reason: Anxiety Montelukast Sodium (Singulair) 10 mg PO HS CE; Protocol Last Admin: 11/02/18 21:02 Dose: 10 mg Multi-Ingredient Ointment (Prep-Hem) 0 ea TOP DAILY CE; Protocol Last Admin: 11/05/18 10:03 Dose: 1 applic Ondansetron HCl (Zofran Tab) 4 mg PO Q6H PRN; Protocol PRN Reason: Nausea/Vomiting Last Admin: 11/04/18 07:46 Dose: 4 mg Pantoprazole Sodium (Protonix Ec Tab) 40 mg PO 0600 CE; Protocol Last Admin: 11/03/18 06:02 Dose: 40 mg Polyethylene Glycol (Miralax) 17 gm PO BID CE; Protocol Last Admin: 11/05/18 10:05 Dose: 17 gm Sennosides (Senokot Tab) 8.6 mg PO DAILY CE; Protocol Last Admin: 11/05/18 10:03 Dose: 8.6 mg Topiramate (Topamax) 150 mg PO DAILY CE; Protocol - Labs Labs: 11/03/18 11:10 11/05/18 07:00 Attending/Attestation - Attestation I have personally seen and examined this patient.: Yes I have fully participated in the care of the patient.: Yes I have reviewed all pertinent clinical information, including history, physical exam and plan: Yes Notes (Text): I agree with the assessment and plan. Continue treatment of neuropathic pain.
[2018-11-05] MEDS: Enoxaparin 40 mg Syringe SC SCH (06:29)
[2018-11-05 07:53] LABS: ALBUMIN 3.7 g/dL (3.0-4.8); ALT/SGPT 531 U/L (7-56); AST/SGOT 198 U/L (14-36); BLOOD UREA NITROGEN 17 mg/dL (7-21); CALCIUM 9.1 mg/dL (8.4-10.5); GFR NON-AFRICAN AMERICAN > 60
[2018-11-05] MEDS: Hemorrohoidal Ointment (2 oz) TOP SCH (10:03)
[2018-11-05] MEDS: Hydrocortisone 2.5% Rectal Cream(30 gm) PR SCH ×2 (10:05→17:14)
[2018-11-05] MEDS: POLYETHYLENE GLYCOL 3350 17 GM/Dose PACKET PO SCH ×2 (10:05→17:14)
[2018-11-05] MEDS: Lidocaine 5% Patch TD SCH (10:06)
--- NOTE | 2018-11-05 10:18 | CP.PCM.PN ---
<Nestor Savage - Last Filed: 11/05/18 12:22> Subjective - Date & Time of Evaluation Date of Evaluation: 11/05/18 Time of Evaluation: 10:13 - Subjective Subjective: Medicine Progress Note for Dr. Chanel 48F seen and evaluated at bedside this morning. States she slept a little better last night and LE pain has improved. Patient worked with PT yesterday and is a little sore, but feeling better. Denies f/c, n/v/d, SOB, CP, or urinary symptoms. Objective - Vital Signs/Intake and Output Vital Signs (last 24 hours): Temp Pulse Resp BP Pulse Ox 97.8 F 72 18 99/66 L 96 11/04/18 16:00 11/04/18 16:00 11/04/18 16:00 11/04/18 16:00 11/04/18 16:00 - Medications Medications: Current Medications Aspirin (Ecotrin) 81 mg PO 0800 CE; Protocol Last Admin: 11/05/18 08:12 Dose: 81 mg Duloxetine HCl (Cymbalta) 60 mg PO DAILY CE; Protocol Last Admin: 11/03/18 10:00 Dose: 60 mg Emollient Ointment (Vaseline Oint) 0 gm TOP BID PRN; Protocol PRN Reason: Dry skin Enoxaparin Sodium (Lovenox) 40 mg SC 0600 CE; Protocol Last Admin: 11/05/18 06:29 Dose: 40 mg Famotidine (Pepcid) 20 mg PO HS CE; Protocol Last Admin: 11/04/18 21:17 Dose: 20 mg Gabapentin (Neurontin) 1,500 mg PO TID CE; Protocol Last Admin: 11/05/18 10:05 Dose: 1,500 mg Hydrocortisone (Anusol-Hc) 0 gm GA BID CE; Protocol Last Admin: 11/05/18 10:05 Dose: 1 applic Levalbuterol HCl (Xopenex) 0.63 mg IH [id number] PRN; Protocol PRN Reason: Shortness of Breath Lidocaine (Lidoderm) 1 ea TD DAILY CE; Protocol Last Admin: 11/05/18 10:06 Dose: 1 ea Lorazepam (Ativan) 2 mg PO Q4H PRN; Protocol PRN Reason: Anxiety Montelukast Sodium (Singulair) 10 mg PO HS CE; Protocol Last Admin: 11/02/18 21:02 Dose: 10 mg Multi-Ingredient Ointment (Prep-Hem) 0 ea TOP DAILY CE; Protocol Last Admin: 11/05/18 10:03 Dose: 1 applic Ondansetron HCl (Zofran Tab) 4 mg PO Q6H PRN; Protocol PRN Reason: Nausea/Vomiting Last Admin: 11/04/18 07:46 Dose: 4 mg Pantoprazole Sodium (Protonix Ec Tab) 40 mg PO 0600 CE; Protocol Last Admin: 11/03/18 06:02 Dose: 40 mg Polyethylene Glycol (Miralax) 17 gm PO BID CE; Protocol Last Admin: 11/05/18 10:05 Dose: 17 gm Sennosides (Senokot Tab) 8.6 mg PO DAILY CE; Protocol Last Admin: 11/05/18 10:03 Dose: 8.6 mg Topiramate (Topamax) 150 mg PO DAILY CE; Protocol - Labs Labs: 11/03/18 11:10 11/05/18 07:00 - Constitutional Appears: Well, Non-toxic, No Acute Distress - Head Exam Head Exam: ATRAUMATIC, NORMAL INSPECTION, NORMOCEPHALIC - Eye Exam Eye Exam: EOMI - ENT Exam ENT Exam: Mucous Membranes Dry - Respiratory Exam Respiratory Exam: NORMAL BREATHING PATTERN. absent: Wheezes, Respiratory Distress - Cardiovascular Exam Cardiovascular Exam: REGULAR RHYTHM, +S1, +S2. absent: Tachycardia, Murmur - GI/Abdominal Exam GI & Abdominal Exam: Soft, Tenderness, Normal Bowel Sounds. absent: Distended, Guarding, Rigid, Rebound - Extremities Exam Extremities Exam: Normal Inspection. absent: Pedal Edema, Tenderness - Neurological Exam Neurological Exam: Alert, Awake, Oriented x3 - Psychiatric Exam Psychiatric exam: Normal Affect, Normal Mood - Skin Skin Exam: Dry, Intact, Normal Color, Warm Assessment and Plan - Assessment and Plan (Free Text) Assessment: 48 year old female with past medical history of CVA with residual left sided weakness, epilepsy, and fibromyalgia, presenting s/p seizure episode. Hospital stay complicated by worsening transaminitis s/p IR liver biopsy. Admitted to TCU 2/2 to deconditioning. Plan: Transaminitis, resolving - Continued decrease in LFTs today - IR biopsy: steatohepatitis, grade 2, stage 0, mild inflammation, no fibrosis - Possibly 2/2 hepatotoxic medications which are on hold - Topimax, protonix, duloxetine and singular on hold, as these medications thought to be leading to transaminitis - Abd US showed hepatic steatosis without focal liver abnormality - Will continue to monitor and avoid hepatotoxic medications - 2.5mg oxycodone PO daily prior to PT sessions - Lidoderm patch in RUQ - Continue physical therapy sessions Seizure - CT head 10/21: possible tiny punctate petechial hemorrhage in left basal ganglia vs. artifact - Repeat CT head 10/23: no interval change from previous study - MRI Brain 10/26: no acute abnormalities - Ativan PRN - EEG - awaiting report - Seizure/aspiration precautions - Holding home topamax 2/2 elevated LFTs - Gabapentin increased to 1500 TID per neuro - Neurology following Atypical chest pain, resolved - Troponin negx3 - ECHO from 09/2018 shows EF 60-65% - EKG: NSR HR 67 - TSH: 3.09 - ASA 81 mg PO daily - Oxygen NC - Cardiology: recommended outpt follow up for cath Constipation, resolved - Continue miralax/senna External Hemorrhoid - Will continue hemorrhoid ointment as needed Elevated d-dimer - V/Q scan (-) for PE - Lovenox for DVT PPX PPX GI: Pepcid DVT: Lovenox Dispo: Pending discharge 11/09/18 Patient plan reviewed and discussed with Dr. Yanique Savage PGY1 <Tia Chanel - Last Filed: 11/05/18 17:01> Objective - Vital Signs/Intake and Output Vital Signs (last 24 hours): Temp Pulse Resp BP Pulse Ox 98.2 F 92 H 18 130/84 99 11/05/18 16:00 11/05/18 16:00 11/05/18 16:00 11/05/18 16:00 11/05/18 16:00 - Medications Medications: Current Medications Aspirin (Ecotrin) 81 mg PO 0800 [facility]; Protocol Last Admin: 11/05/18 08:12 Dose: 81 mg Duloxetine HCl (Cymbalta) 60 mg PO DAILY [facility]; Protocol Last Admin: 11/03/18 10:00 Dose: 60 mg Emollient Ointment (Vaseline Oint) 0 gm TOP BID PRN; Protocol PRN Reason: Dry skin Enoxaparin Sodium (Lovenox) 40 mg SC 0600 CE; Protocol Last Admin: 11/05/18 06:29 Dose: 40 mg Famotidine (Pepcid) 20 mg PO HS CE; Protocol Last Admin: 11/04/18 21:17 Dose: 20 mg Gabapentin (Neurontin) 1,500 mg PO TID CE; Protocol Last Admin: 11/05/18 13:46 Dose: 1,500 mg Hydrocortisone (Anusol-Hc) 0 gm GA BID CE; Protocol Last Admin: 11/05/18 10:05 Dose: 1 applic Levalbuterol HCl (Xopenex) 0.63 mg IH [id number] PRN; Protocol PRN Reason: Shortness of Breath Lidocaine (Lidoderm) 1 ea TD DAILY CE; Protocol Last Admin: 11/05/18 10:06 Dose: 1 ea Lorazepam (Ativan) 2 mg PO Q4H PRN; Protocol PRN Reason: Anxiety Montelukast Sodium (Singulair) 10 mg PO HS CE; Protocol Last Admin: 11/02/18 21:02 Dose: 10 mg Multi-Ingredient Ointment (Prep-Hem) 0 ea TOP DAILY CE; Protocol Last Admin: 11/05/18 10:03 Dose: 1 applic Ondansetron HCl (Zofran Tab) 4 mg PO Q6H PRN; Protocol PRN Reason: Nausea/Vomiting Last Admin: 11/04/18 07:46 Dose: 4 mg Pantoprazole Sodium (Protonix Ec Tab) 40 mg PO 0600 CE; Protocol Last Admin: 11/03/18 06:02 Dose: 40 mg Polyethylene Glycol (Miralax) 17 gm PO BID CE; Protocol Last Admin: 11/05/18 10:05 Dose: 17 gm Sennosides (Senokot Tab) 8.6 mg PO DAILY CE; Protocol Last Admin: 11/05/18 10:03 Dose: 8.6 mg Topiramate (Topamax) 150 mg PO DAILY CE; Protocol - Labs Labs: 11/03/18 11:10 11/05/18 07:00 Attending/Attestation - Attestation I have personally seen and examined this patient.: Yes I have fully participated in the care of the patient.: Yes I have reviewed all pertinent clinical information, including history, physical exam and plan: Yes Notes (Text): 11/05/18 16:59 48 year old female with past medical history of CVA with residual left sided weakness, epilepsy, and fibromyalgia who presented after seizure episode. CT head and MRI brain reviewed as above. Neurology has been following and patient is on gabapentin. Patient continued to complained of neuropathy and her gabapentin was increased by neurology which patient is tolerating. She was also on topamax and cymbalta which were discontinued due to elevated LFTs. GI has been following for transaminitis. Abdominal ultrasound showed hepatic steatosis. Hepatitis panel was negative. LFTs are slowly improving. She is s/p liver biopsy earlier this week which was reviewed as above. She also initially complained of chest pain. Serial cardiac enzymes have been negative. Cardiology has recommended outpatient cardiac cath. Continue with physical therapy as tolerated while in TCU. Tia Chanel MD Hospitalist.
[2018-11-06] MEDS: Enoxaparin 40 mg Syringe SC SCH (05:30)
[2018-11-06] MEDS: Lidocaine 5% Patch TD SCH (09:15)
[2018-11-06] MEDS: POLYETHYLENE GLYCOL 3350 17 GM/Dose PACKET PO SCH ×2 (09:16→17:43)
[2018-11-06] MEDS: Hemorrohoidal Ointment (2 oz) TOP SCH (09:16)
[2018-11-06] MEDS: Hydrocortisone 2.5% Rectal Cream(30 gm) PR SCH ×2 (09:17→17:43)
[2018-11-07] MEDS: Enoxaparin 40 mg Syringe SC SCH (06:16)
[2018-11-07 08:36] LABS: ALB/GLOB RATIO 1.3 (1.1-1.8); ALBUMIN 4.4 g/dL (3.0-4.8); ALT/SGPT 408 U/L (7-56); AST/SGOT 156 U/L (14-36); BLOOD UREA NITROGEN 17 mg/dL (7-21); CALCIUM 9.9 mg/dL (8.4-10.5); GFR NON-AFRICAN AMERICAN > 60
[2018-11-07] MEDS: Lidocaine 5% Patch TD SCH (09:51)
[2018-11-07] MEDS: Hydrocortisone 2.5% Rectal Cream(30 gm) PR SCH ×2 (09:51→17:06)
[2018-11-07] MEDS: Hemorrohoidal Ointment (2 oz) TOP SCH (09:52)
[2018-11-07] MEDS: POLYETHYLENE GLYCOL 3350 17 GM/Dose PACKET PO SCH ×2 (09:52→17:06)
--- NOTE | 2018-11-07 11:58 | CP.PCM.PN ---
<Maciej Wise - Last Filed: 11/07/18 11:54> Subjective - Date & Time of Evaluation Date of Evaluation: 11/07/18 Time of Evaluation: 08:00 - Subjective Subjective: Maciej Wise, PGY1 Medicine Progress Note for Dr. Chanel Patient seen at bedside this morning. She says physical therapy is helping her and she enjoys it. She has certain complaints about her diet and is very particular of the food. Denies cp, sob, n/v/d, abdominal pain, fever, chills. Patient explained her LFTs are downtrending since admission and certain medications were held/stopped. She has generalized chronic pain. A full 12 point ROS was conducted and unremarkable except as stated above. Objective - Vital Signs/Intake and Output Vital Signs (last 24 hours): Temp Pulse Resp BP Pulse Ox 97.8 F 94 H 18 120/84 95 11/07/18 10:00 11/07/18 10:00 11/07/18 10:00 11/07/18 10:00 11/07/18 10:00 - Medications Medications: Current Medications Aspirin (Ecotrin) 81 mg PO 0800 CE; Protocol Last Admin: 11/07/18 08:09 Dose: 81 mg Duloxetine HCl (Cymbalta) 60 mg PO DAILY CE; Protocol Last Admin: 11/03/18 10:00 Dose: 60 mg Emollient Ointment (Vaseline Oint) 0 gm TOP BID PRN; Protocol PRN Reason: Dry skin Enoxaparin Sodium (Lovenox) 40 mg SC 0600 CE; Protocol Last Admin: 11/07/18 06:16 Dose: 40 mg Famotidine (Pepcid) 20 mg PO HS CE; Protocol Last Admin: 11/06/18 21:08 Dose: 20 mg Gabapentin (Neurontin) 1,500 mg PO TID CE; Protocol Last Admin: 11/07/18 09:52 Dose: 1,500 mg Hydrocortisone (Anusol-Hc) [address] BID CE; Protocol Last Admin: 11/07/18 09:51 Dose: 1 applic Levalbuterol HCl (Xopenex) 0.63 mg IH [id number] PRN; Protocol PRN Reason: Shortness of Breath Lidocaine (Lidoderm) 1 ea TD DAILY CE; Protocol Last Admin: 11/07/18 09:51 Dose: 1 ea Lorazepam (Ativan) 2 mg PO Q4H PRN; Protocol PRN Reason: Anxiety Montelukast Sodium (Singulair) 10 mg PO HS CE; Protocol Last Admin: 11/02/18 21:02 Dose: 10 mg Multi-Ingredient Ointment (Prep-Hem) 0 ea TOP DAILY CE; Protocol Last Admin: 11/07/18 09:52 Dose: 1 applic Ondansetron HCl (Zofran Tab) 4 mg PO Q6H PRN; Protocol PRN Reason: Nausea/Vomiting Last Admin: 11/04/18 07:46 Dose: 4 mg Pantoprazole Sodium (Protonix Ec Tab) 40 mg PO 0600 CE; Protocol Last Admin: 11/03/18 06:02 Dose: 40 mg Polyethylene Glycol (Miralax) 17 gm PO BID CE; Protocol Last Admin: 11/07/18 09:52 Dose: 17 gm Sennosides (Senokot Tab) 8.6 mg PO DAILY CE; Protocol Last Admin: 11/07/18 09:53 Dose: 8.6 mg Topiramate (Topamax) 150 mg PO DAILY CE; Protocol - Labs Labs: 11/03/18 11:10 11/07/18 08:00 - Constitutional Appears: Well, Non-toxic, No Acute Distress - Head Exam Head Exam: ATRAUMATIC, NORMAL INSPECTION, NORMOCEPHALIC - Eye Exam Eye Exam: EOMI - ENT Exam ENT Exam: Mucous Membranes Dry - Respiratory Exam Respiratory Exam: NORMAL BREATHING PATTERN. absent: Wheezes, Respiratory Distress - Cardiovascular Exam Cardiovascular Exam: REGULAR RHYTHM, +S1, +S2. absent: Tachycardia, Murmur - GI/Abdominal Exam GI & Abdominal Exam: Soft, Tenderness, Normal Bowel Sounds. absent: Distended, Guarding, Rigid, Rebound - Extremities Exam Extremities Exam: Normal Inspection. absent: Pedal Edema, Tenderness - Neurological Exam Neurological Exam: Alert, Awake, Oriented x3 - Psychiatric Exam Psychiatric exam: Normal Affect, Normal Mood - Skin Skin Exam: Dry, Intact, Normal Color, Warm Assessment and Plan - Assessment and Plan (Free Text) Assessment: 48 year old female with past medical history of CVA with residual left sided weakness, epilepsy, and fibromyalgia, presenting s/p seizure episode. Hospital stay complicated by worsening transaminitis s/p IR liver biopsy. Admitted to TCU 09/11 to deconditioning. Plan: Transaminitis - improving - Continued decrease in LFTs today (AST/ALT 156/408) - IR biopsy: steatohepatitis, grade 2, stage 0, mild inflammation, no fibrosis - Possibly 2/2 hepatotoxic medications: Topimax, protonix, duloxetine and singular continues to be held - Abd US showed hepatic steatosis without focal liver abnormality - Will continue to monitor and avoid hepatotoxic medications - c/w Lidoderm patch in RUQ - Continue physical therapy sessions Seizure - c/w Gabapentin 1500mg TID per neuro - c/w Ativan PRN - c/w Seizure/aspiration precautions - Holding home topamax 2/2 elevated LFTs - Neurology following (Dr. Ferris) - MRI Brain 10/26: no acute abnormalities - Repeat CT head 10/23: no interval change from previous study - CT head 10/21: possible tiny punctate petechial hemorrhage in left basal ganglia vs. artifact Fibromyalgia - c/w Gabapentin as per neuro - Held cymbalta at this time given elevated LFTs on admission - will monitor symptoms Atypical chest pain, resolved - Troponin negx3 - ECHO from 09/2018 shows EF 60-65% - c/w ASA 81 mg PO daily - Cardiology on consult (Dr. Cuellar); recommended outpt follow up for cath Constipation, resolved - Continue miralax/senna External Hemorrhoid - continue hemorrhoid ointment as needed PPX GI: Pepcid DVT: Lovenox Diet: HHD Dispo: Monitor patient in TCU for deconditioning. Pending discharge 11/09/18 from TCU. Case was discussed and reviewed with Attending Physician, Dr. Chanel <Tia Chanel - Last Filed: 11/07/18 12:39> Objective - Vital Signs/Intake and Output Vital Signs (last 24 hours): Temp Pulse Resp BP Pulse Ox 97.8 F 94 H 18 120/84 95 11/07/18 10:00 11/07/18 10:00 11/07/18 10:00 11/07/18 10:00 11/07/18 10:00 - Medications Medications: Current Medications Aspirin (Ecotrin) 81 mg PO 0800 [facility]; Protocol Last Admin: 11/07/18 08:09 Dose: 81 mg Duloxetine HCl (Cymbalta) 60 mg PO DAILY [facility]; Protocol Last Admin: 11/03/18 10:00 Dose: 60 mg Emollient Ointment (Vaseline Oint) 0 gm TOP BID PRN; Protocol PRN Reason: Dry skin Enoxaparin Sodium (Lovenox) 40 mg SC 0600 [facility]; Protocol Last Admin: 11/07/18 06:16 Dose: 40 mg Famotidine (Pepcid) 20 mg PO HS CE; Protocol Last Admin: 11/06/18 21:08 Dose: 20 mg Gabapentin (Neurontin) 1,500 mg PO TID CE; Protocol Last Admin: 11/07/18 09:52 Dose: 1,500 mg Hydrocortisone (Anusol-Hc) [address] BID CE; Protocol Last Admin: 11/07/18 09:51 Dose: 1 applic Levalbuterol HCl (Xopenex) 0.63 mg IH [id number] PRN; Protocol PRN Reason: Shortness of Breath Lidocaine (Lidoderm) 1 ea TD DAILY CE; Protocol Last Admin: 11/07/18 09:51 Dose: 1 ea Lorazepam (Ativan) 2 mg PO Q4H PRN; Protocol PRN Reason: Anxiety Montelukast Sodium (Singulair) 10 mg PO HS CE; Protocol Last Admin: 11/02/18 21:02 Dose: 10 mg Multi-Ingredient Ointment (Prep-Hem) 0 ea TOP DAILY CE; Protocol Last Admin: 11/07/18 09:52 Dose: 1 applic Ondansetron HCl (Zofran Tab) 4 mg PO Q6H PRN; Protocol PRN Reason: Nausea/Vomiting Last Admin: 11/04/18 07:46 Dose: 4 mg Pantoprazole Sodium (Protonix Ec Tab) 40 mg PO 0600 CE; Protocol Last Admin: 11/03/18 06:02 Dose: 40 mg Polyethylene Glycol (Miralax) 17 gm PO BID CE; Protocol Last Admin: 11/07/18 09:52 Dose: 17 gm Sennosides (Senokot Tab) 8.6 mg PO DAILY CE; Protocol Last Admin: 11/07/18 09:53 Dose: 8.6 mg Topiramate (Topamax) 150 mg PO DAILY CE; Protocol - Labs Labs: 11/03/18 11:10 11/07/18 08:00 Attending/Attestation - Attestation I have personally seen and examined this patient.: Yes I have fully participated in the care of the patient.: Yes I have reviewed all pertinent clinical information, including history, physical exam and plan: Yes Notes (Text): 11/07/18 12:38 48 year old female with past medical history of CVA with residual left sided weakness, epilepsy, and fibromyalgia who presented after seizure episode. CT head and MRI brain reviewed as above. Neurology has been following and patient is on gabapentin. Dose was recently by neurology due to neuropathy which improved. She was also on topamax and cymbalta which were discontinued due to elevated LFTs. Abdominal ultrasound showed hepatic steatosis. Hepatitis panel was negative. She is s/p liver biopsy earlier last week which was reviewed as above. Continue to monitor transaminitis closely which continues to improve. She also initially complained of chest pain, now resolved. Serial cardiac enzymes have been negative. Cardiology has recommended outpatient cardiac cath. Continue with physical therapy as tolerated while in TCU. Tia Chanel MD Hospitalist.
[2018-11-08] MEDS: Enoxaparin 40 mg Syringe SC SCH (05:48)
[2018-11-08] MEDS: POLYETHYLENE GLYCOL 3350 17 GM/Dose PACKET PO SCH ×2 (10:27→17:13)
[2018-11-08] MEDS: Hydrocortisone 2.5% Rectal Cream(30 gm) PR SCH ×2 (10:27→17:13)
[2018-11-08] MEDS: Lidocaine 5% Patch TD SCH (10:27)
[2018-11-08] MEDS: Hemorrohoidal Ointment (2 oz) TOP SCH (10:28)
[2018-11-09 08:28] LABS: ALB/GLOB RATIO 1.2 (1.1-1.8); ALBUMIN 4.8 g/dL (3.0-4.8); ALT/SGPT 315 U/L (7-56); AST/SGOT 109 U/L (14-36); BLOOD UREA NITROGEN 23 mg/dL (7-21); CALCIUM 10.1 mg/dL (8.4-10.5); GFR NON-AFRICAN AMERICAN > 60
[2018-11-09] MEDS: Hydrocortisone 2.5% Rectal Cream(30 gm) PR SCH ×2 (09:24→17:33)
[2018-11-09] MEDS: POLYETHYLENE GLYCOL 3350 17 GM/Dose PACKET PO SCH ×2 (09:26→17:34)
[2018-11-09] MEDS: Lidocaine 5% Patch TD SCH (09:26)
[2018-11-09] MEDS: Hemorrohoidal Ointment (2 oz) TOP SCH (09:28)
--- NOTE | 2018-11-09 13:40 | CP.PCM.PN ---
<Skip Duval - Last Filed: 11/09/18 13:36> Subjective - Date & Time of Evaluation Date of Evaluation: 11/09/18 Time of Evaluation: 10:00 - Subjective Subjective: PGY-2 medicine progress note for Dr Mendez No acute events overnight. Patient seated in chair appearing comfortable. Denied pain. Stated she is working with PT. Denied headache, seizure activity. Discharge date now 11/11. Objective - Vital Signs/Intake and Output Vital Signs (last 24 hours): Temp Pulse Resp BP Pulse Ox 98 F 82 18 112/73 99 11/08/18 16:00 11/08/18 16:00 11/08/18 16:00 11/08/18 16:00 11/08/18 16:00 - Medications Medications: Current Medications Aspirin (Ecotrin) 81 mg PO 0800 CE; Protocol Last Admin: 11/09/18 07:50 Dose: 81 mg Duloxetine HCl (Cymbalta) 60 mg PO DAILY CE; Protocol Last Admin: 11/03/18 10:00 Dose: 60 mg Emollient Ointment (Vaseline Oint) 0 gm TOP BID PRN; Protocol PRN Reason: Dry skin Enoxaparin Sodium (Lovenox) 40 mg SC 0600 CE; Protocol Last Admin: 11/08/18 05:48 Dose: 40 mg Famotidine (Pepcid) 20 mg PO HS CE; Protocol Last Admin: 11/08/18 21:14 Dose: 20 mg Gabapentin (Neurontin) 1,500 mg PO TID CE; Protocol Last Admin: 11/09/18 13:31 Dose: 1,500 mg Hydrocortisone (Anusol-Hc) 0 gm TN BID CE; Protocol Last Admin: 11/09/18 09:24 Dose: Not Given Levalbuterol HCl (Xopenex) 0.63 mg IH [id number] PRN; Protocol PRN Reason: Shortness of Breath Lidocaine (Lidoderm) 1 ea TD DAILY CE; Protocol Last Admin: 11/09/18 09:26 Dose: 1 ea Lorazepam (Ativan) 2 mg PO Q4H PRN; Protocol PRN Reason: Anxiety Montelukast Sodium (Singulair) 10 mg PO HS CE; Protocol Last Admin: 11/02/18 21:02 Dose: 10 mg Multi-Ingredient Ointment (Prep-Hem) 0 ea TOP DAILY CE; Protocol Last Admin: 11/09/18 09:28 Dose: 1 applic Ondansetron HCl (Zofran Tab) 4 mg PO Q6H PRN; Protocol PRN Reason: Nausea/Vomiting Last Admin: 11/07/18 19:23 Dose: 4 mg Pantoprazole Sodium (Protonix Ec Tab) 40 mg PO 0600 CE; Protocol Last Admin: 11/03/18 06:02 Dose: 40 mg Polyethylene Glycol (Miralax) 17 gm PO BID CE; Protocol Last Admin: 11/09/18 09:26 Dose: 17 gm Sennosides (Senokot Tab) 8.6 mg PO DAILY CE; Protocol Last Admin: 11/09/18 09:28 Dose: 8.6 mg Topiramate (Topamax) 150 mg PO DAILY CE; Protocol - Labs Labs: 11/03/18 11:10 11/09/18 07:30 - Additional Findings Additional findings: - Constitutional Appears: Well, Non-toxic, No Acute Distress - Head Exam Head Exam: ATRAUMATIC, NORMAL INSPECTION, NORMOCEPHALIC - Eye Exam Eye Exam: EOMI - ENT Exam ENT Exam: Mucous Membranes Dry - Respiratory Exam Respiratory Exam: NORMAL BREATHING PATTERN. absent: Wheezes, Respiratory Distress - Cardiovascular Exam Cardiovascular Exam: REGULAR RHYTHM, +S1, +S2. absent: Tachycardia, Murmur - GI/Abdominal Exam GI & Abdominal Exam: Soft, Tenderness, Normal Bowel Sounds. absent: Distended, Guarding, Rigid, Rebound - Extremities Exam Extremities Exam: Normal Inspection. absent: Pedal Edema, Tenderness - Neurological Exam Neurological Exam: Alert, Awake, Oriented x3 - Psychiatric Exam Psychiatric exam: Normal Affect, Normal Mood - Skin Skin Exam: Dry, Intact, Normal Color, Warm Assessment and Plan - Assessment and Plan (Free Text) Plan: 48 year old female with past medical history of CVA with residual left sided weakness, epilepsy, and fibromyalgia, presenting s/p seizure episode. Hospital stay complicated by worsening transaminitis s/p IR liver biopsy. Admitted to TCU 2/ to deconditioning. Plan: Transaminitis - improving - Continued decrease in LFTs today (AST/ALT 109/315) - IR biopsy: steatohepatitis, grade 2, stage 0, mild inflammation, no fibrosis * GI Dr Martinez discussing with [facility] Dr Talley for second opinion. Patient will f/u with Dr Martinez outpatient for results. - Possibly 2/2 hepatotoxic medications: Topimax, protonix, duloxetine and singular continues to be held - Abd US showed hepatic steatosis without focal liver abnormality - Will continue to monitor and avoid hepatotoxic medications - c/w Lidoderm patch in RUQ - Continue physical therapy sessions Seizure - c/w Gabapentin 1500mg TID per neuro - c/w Ativan PRN - c/w Seizure/aspiration precautions - Holding home topamax 2/2 elevated LFTs - Neurology following (Dr. Ferris) - MRI Brain 10/26: no acute abnormalities - Repeat CT head 10/23: no interval change from previous study - CT head 10/21: possible tiny punctate petechial hemorrhage in left basal ganglia vs. artifact Fibromyalgia - c/w Gabapentin as per neuro - Held cymbalta at this time given elevated LFTs on admission - will monitor symptoms Atypical chest pain, resolved - Troponin negx3 - ECHO from 09/2018 shows EF 60-65% - c/w ASA 81 mg PO daily - Cardiology on consult (Dr. Cuellar); recommended outpt follow up for cath Constipation, resolved - Continue miralax/senna External Hemorrhoid - continue hemorrhoid ointment as needed PPX GI: Pepcid DVT: Lovenox Diet: HHD Dispo: Monitor patient in TCU for deconditioning. Pending discharge 11/11/18 from TCU. Case was discussed and reviewed with Attending Physician, Dr. Mendez <Jerry Mendez - Last Filed: 11/10/18 17:34> Objective - Vital Signs/Intake and Output Vital Signs (last 24 hours): Temp Pulse Resp BP Pulse Ox 97.4 F L 73 18 92/62 L 97 11/10/18 16:00 11/10/18 16:00 11/10/18 16:00 11/10/18 16:00 11/10/18 16:00 - Medications Medications: Current Medications Aspirin (Ecotrin) 81 mg PO 0800 [facility]; Protocol Last Admin: 11/10/18 07:58 Dose: 81 mg Duloxetine HCl (Cymbalta) 60 mg PO DAILY CE; Protocol Last Admin: 11/03/18 10:00 Dose: 60 mg Emollient Ointment (Vaseline Oint) 0 gm TOP BID PRN; Protocol PRN Reason: Dry skin Enoxaparin Sodium (Lovenox) 40 mg SC 0600 CE; Protocol Last Admin: 11/10/18 05:51 Dose: 40 mg Famotidine (Pepcid) 20 mg PO HS CE; Protocol Last Admin: 11/09/18 21:39 Dose: 20 mg Gabapentin (Neurontin) 1,500 mg PO TID CE; Protocol Last Admin: 11/10/18 17:22 Dose: 1,500 mg Hydrocortisone (Anusol-Hc) 0 gm TN BID CE; Protocol Last Admin: 11/10/18 17:18 Dose: 1 applic Levalbuterol HCl (Xopenex) 0.63 mg IH [id number] PRN; Protocol PRN Reason: Shortness of Breath Lidocaine (Lidoderm) 1 ea TD DAILY CE; Protocol Last Admin: 11/10/18 10:21 Dose: 1 ea Lidocaine HCl (Xylocaine 2%) 0 ea TOP BID CE Last Admin: 11/10/18 17:24 Dose: 1 applic Lorazepam (Ativan) 2 mg PO Q4H PRN; Protocol PRN Reason: Anxiety Montelukast Sodium (Singulair) 10 mg PO HS CE; Protocol Last Admin: 11/02/18 21:02 Dose: 10 mg Multi-Ingredient Ointment (Prep-Hem) 0 ea TOP DAILY CE; Protocol Last Admin: 11/10/18 10:22 Dose: 1 applic Ondansetron HCl (Zofran Tab) 4 mg PO Q6H PRN; Protocol PRN Reason: Nausea/Vomiting Last Admin: 11/07/18 19:23 Dose: 4 mg Pantoprazole Sodium (Protonix Ec Tab) 40 mg PO 0600 CE; Protocol Last Admin: 11/03/18 06:02 Dose: 40 mg Polyethylene Glycol (Miralax) 17 gm PO BID CE; Protocol Last Admin: 11/10/18 17:19 Dose: Not Given Sennosides (Senokot Tab) 8.6 mg PO DAILY CE; Protocol Last Admin: 11/10/18 10:22 Dose: Not Given Topiramate (Topamax) 150 mg PO DAILY CE; Protocol - Labs Labs: 11/03/18 11:10 11/09/18 07:30 Attending/Attestation - Attestation I have personally seen and examined this patient.: Yes I have fully participated in the care of the patient.: Yes I have reviewed all pertinent clinical information, including history, physical exam and plan: Yes Notes (Text): 11/10/18 17:29 Patient was seen and examined with medical dir. 48 year old female with past medical history of CVA with residual left sided weakness, epilepsy, and fibromyalgia was [place] [facility] [place] H/of seizure episode. CT scan of head read shows possible tiny calcificationin left basal ganglia vs. artifact, MRI Brain: Showed no acute abnormalities.Patien t topamax dose was increased but Patient developed transaiminitis ,the elevated liver enzymes had hepatocellular pattern . She was also on topamax and cymbalta which were discontinued due to elevated LFTs. Abdominal ultrasound showed hepatic steatosis. Hepatitis panel was negative. She underwent liver biopsy earlier last week .Liver biopsy showed steatohepatitis, grade 2, stage 0, mild inflammation, no fibrosis LFT are improving. She was later transfered to TCU for rehabilitation. Continue with physical therapy as tolerated while in TCU.
[2018-11-09 16:57] VITALS: RESP 18
[2018-11-10] MEDS: Enoxaparin 40 mg Syringe SC SCH (05:51)
[2018-11-10] MEDS: POLYETHYLENE GLYCOL 3350 17 GM/Dose PACKET PO SCH ×2 (10:21→17:19)
[2018-11-10] MEDS: Hydrocortisone 2.5% Rectal Cream(30 gm) PR SCH ×2 (10:21→17:18)
[2018-11-10] MEDS: Lidocaine 5% Patch TD SCH (10:21)
[2018-11-10] MEDS: Hemorrohoidal Ointment (2 oz) TOP SCH (10:22)
[2018-11-10] MEDS ORDERED: Lidocaine 2% Jelly (Uro-Jet) TOP SCH (13:30)
[2018-11-10] MEDS: Lidocaine 2% Jelly (30 ml) TOP SCH ×2 (14:03→17:24)
[2018-11-11] MEDS: Enoxaparin 40 mg Syringe SC SCH (06:25)
[2018-11-11 08:19] VITALS: BP 117/84; PULSE 96; TEMP 98.1; O2SAT 96
[2018-11-11 08:26] LABS: ALB/GLOB RATIO 1.4 (1.1-1.8); ALBUMIN 4.4 g/dL (3.0-4.8); ALT/SGPT 211 U/L (7-56); AST/SGOT 98 U/L (14-36); BLOOD UREA NITROGEN 18 mg/dL (7-21); CALCIUM 9.6 mg/dL (8.4-10.5); GFR NON-AFRICAN AMERICAN > 60
[2018-11-11] MEDS: Lidocaine 5% Patch TD SCH (09:26)
[2018-11-11] MEDS: Hemorrohoidal Ointment (2 oz) TOP SCH (09:29)
[2018-11-11] MEDS: Lidocaine 2% Jelly (30 ml) TOP SCH (09:29)
[2018-11-11] MEDS: POLYETHYLENE GLYCOL 3350 17 GM/Dose PACKET PO SCH (09:30)
[2018-11-11] MEDS: Hydrocortisone 2.5% Rectal Cream(30 gm) PR SCH (10:30)
--- NOTE | 2018-11-11 13:42 | CP.PCM.DIS ---
<FrandyMaciej - Last Filed: 11/11/18 14:30> Provider - Provider Date of Admission: 11/02/18 17:51 Attending physician: Tia Chanel MD Primary care physician: Saskia Hearn MD Consults: 11/02/18 18:51 Physician Consult Routine Comment: Consulting Provider: Diego Ferris Consulting Physician: Diego Ferris Reason for Consult: SEIZURES 11/08/18 08:50 Discharge Planning [Case Management Referral] Routine Comment: Physician Instructions: Reason For Exam: discharge planning Reason for Referral: [facility] Eval Time Spent in preparation of Discharge (in minutes): 35 Hospital Course - Lab Results Lab Results: Most Recent Lab Values WBC 7.1 10^3/uL (4.5-11.0) D 11/03/18 11:10 RBC 4.19 10^6/uL (3.5-6.1) 11/03/18 11:10 Hgb 11.4 g/dL (12.0-16.0) L 11/03/18 11:10 Hct 36.6 % (36.0-48.0) 11/03/18 11:10 MCV 87.4 fl (80.0-105.0) 11/03/18 11:10 MCH 27.2 pg (25.0-35.0) 11/03/18 11:10 MCHC 31.1 g/dl (31.0-37.0) 11/03/18 11:10 RDW 23.3 % (11.5-14.5) H 11/03/18 11:10 Plt Count 250 10^3/uL (120.0-450.0) 11/03/18 11:10 MPV 11.4 fl (7.0-11.0) H 11/03/18 11:10 Sodium 145 mmol/L (132-148) 11/11/18 07:20 Potassium 3.4 mmol/L (3.6-5.0) L 11/11/18 07:20 Chloride 110 mmol/L (98-107) H 11/11/18 07:20 Carbon Dioxide 25 mmol/L (21-33) 11/11/18 07:20 Anion Gap 14 (10-20) 11/11/18 07:20 BUN 18 mg/dL (7-21) 11/11/18 07:20 Creatinine 0.7 mg/dl (0.7-1.2) 11/11/18 07:20 Est GFR ( Amer) > 60 11/11/18 07:20 Est GFR (Non-Af Amer) > 60 11/11/18 07:20 Random Glucose 83 mg/dL (70-110) 11/11/18 07:20 Calcium 9.6 mg/dL (8.4-10.5) 11/11/18 07:20 Total Bilirubin 0.2 mg/dL (0.2-1.3) 11/11/18 07:20 AST 98 U/L (14-36) H 11/11/18 07:20 ALT 211 U/L (7-56) H 11/11/18 07:20 Alkaline Phosphatase 108 U/L (38-126) 11/11/18 07:20 Total Protein 7.6 g/dL (5.8-8.3) 11/11/18 07:20 Albumin 4.4 g/dL (3.0-4.8) 11/11/18 07:20 Globulin 3.2 gm/dL 11/11/18 07:20 Albumin/Globulin Ratio 1.4 (1.1-1.8) 11/11/18 07:20 - Hospital Course Hospital Course: Maciej Wise, PGY1 Discharge Summary for Dr. Mendez Patient is a 48 year old female with past medical history of CVA with residual left sided weakness, epilepsy, obesity, anemia, fibromyalgia, neuropathy, seasonal disorder who presented to our emergency department s/p seizure episode witnessed by family on 10/22/18. Patient's last seizure was several years ago. Patient had concomitant constant chest discomfort localized to mid anterior chest wall, not associated with exertion, dyspnea or diaphoresis. Patient's CT Head and MRI only confirmed chronic changes. Neurology was placed on consult. EEG was also normal. Patient's symptoms resolved once admitted to the hospital. Patients admission complicated by transaminitis (AST/ALT levels in the 700s). GI was consulted. Hepatitis panel was negative. Hepatoxic medications were held. Patient had a liver biopsy done by interventional radiology. Liver biopsy showed steatohepatitis. Hep panel, HIV, RPR, PAPITO, Alpha-1 antitrypsin were all negative. Patient's transaminitis improved after holding hepatotoxic medica tions, including duloxetine, montelukast, topomax, and protonix. Patient admitted to TCU for continued physical therapy secondary to deconditioning. Patient complained of increasing lower extremity pain and difficulty sleeping because of worsening neuropathy. However, after rehabilitation her symptoms resolved. She did very well during rehabilitation at TCU. She has significantly improved since admission. LFTs trended downwards to the most recent AST/ALT 98/211. Neurontin medication dose was adjusted by neuro to better control her neuropathy. She was also cleared by GI for discharge. Upon discharge, she will follow up with her PMD, Gasteroenterologist, Neurologist, and Psychiatrist. She was also instructed to hold the above hepatotoxic meds. Upon reviewing all labs, imaging, and vitals, patient is hemodynamically stable for discharge from TCU. Discharge Exam - Head Exam Head Exam: ATRAUMATIC, NORMAL INSPECTION, NORMOCEPHALIC - Eye Exam Eye Exam: EOMI, Normal appearance Pupil Exam: NORMAL ACCOMODATION - ENT Exam ENT Exam: Mucous Membranes Moist - Respiratory Exam Respiratory Exam: Clear to PA & Lateral. absent: Accessory Muscle Use, Chest Wall Tenderness, Rales, Rhonchi, Wheezes, Respiratory Distress - Cardiovascular Exam Cardiovascular Exam: RRR, +S1, +S2 - GI/Abdominal Exam GI & Abdominal Exam: Normal Bowel Sounds. absent: Guarding, Rebound, Rigid - Extremities Exam Extremities exam: normal capillary refill, pedal pulses present - Back Exam Back exam: NORMAL INSPECTION - Neurological Exam Neurological exam: Alert, CN II-XII Intact, Normal Gait, Oriented x3 - Psychiatric Exam Psychiatric exam: Normal Affect, Normal Mood - Skin Skin Exam: Dry, Intact, Normal Color, Warm Discharge Plan - Discharge Medications Prescriptions: Aspirin [Ecotrin] 81 mg PO 0800 #14 tabec Famotidine [Pepcid] 20 mg PO HS #14 tab Gabapentin [Neurontin] 1,500 mg PO TID 14 Days tab Hemorrohoidal Ointment [Prep-Hem] 1 appl TOP DAILY #1 tube Lidocaine 5% [Lidoderm] 1 ea TD DAILY #14 patch Polyethylene Glycol 3350 [Miralax] 17 gm PO BID #28 packet - Follow Up Plan Condition: GOOD Disposition: HOME/ ROUTINE Instructions: Preventing Falls in the Older Adult, Seizures, Adult (DC) Additional Instructions: After discharge from TCU please follow-up with your PMD, Dr Hearn, within 7 days. You had a recent liver biopsy performed. Gastroentergologist Dr Martinez would like to discuss the results of the biopsy in his office. Please make an appt to see him in 7-14 days. Please follow-up with your build automation engineer, Dr Smyth. Please follow-up with a neurologist, Dr Lo/Dr Ferris, as they will perform a video EEG outpatient. Please follow-up with a psychiatrist - you were given information about outpatient psychiatrists. We have held the following home medications due to your elevated liver enzymes, we will continue to hold these for the time bein. Duloxetine 60mg po qd 2. Montelukast 10mg po hs 3. Pantoprazole 40mg po qd 4. Topiramate 150mg po qd If symptoms return promptly go to your nearest emergency department. Referrals: Jean Carlos Smyth MD [Staff Provider] - Tonny Martinez MD [Staff Provider] - Saskia Hearn MD [Primary Care Provider] - Ada Eddy MD [Staff Provider] - Brady Lo MD [Staff Provider] - Referrals: Jean Carlos Smyth MD [Staff Provider] - Tonny Martinez MD [Staff Provider] - Saskia Hearn MD [Primary Care Provider] - Brady Lo MD [Staff Provider] - <Jerry Mendez - Last Filed: 11/11/18 15:30> Provider - Provider Date of Admission: 11/02/18 17:51 Attending physician: Tia Chanel MD Primary care physician: Saskia Hearn MD Consults: 11/02/18 18:51 Physician Consult Routine Comment: Consulting Provider: Diego Ferris Consulting Physician: Diego Ferris Reason for Consult: SEIZURES 11/08/18 08:50 Discharge Planning [Case Management Referral] Routine Comment: Physician Instructions: Reason For Exam: discharge planning Reason for Referral: [facility] Course - Lab Results Lab Results: Most Recent Lab Values WBC 7.1 10^3/uL (4.5-11.0) D 11/03/18 11:10 RBC 4.19 10^6/uL (3.5-6.1) 11/03/18 11:10 Hgb 11.4 g/dL (12.0-16.0) L 11/03/18 11:10 Hct 36.6 % (36.0-48.0) 11/03/18 11:10 MCV 87.4 fl (80.0-105.0) 11/03/18 11:10 MCH 27.2 pg (25.0-35.0) 11/03/18 11:10 MCHC 31.1 g/dl (31.0-37.0) 11/03/18 11:10 RDW 23.3 % (11.5-14.5) H 11/03/18 11:10 Plt Count 250 10^3/uL (120.0-450.0) 11/03/18 11:10 MPV 11.4 fl (7.0-11.0) H 11/03/18 11:10 Sodium 145 mmol/L (132-148) 11/11/18 07:20 Potassium 3.4 mmol/L (3.6-5.0) L 11/11/18 07:20 Chloride 110 mmol/L (98-107) H 11/11/18 07:20 Carbon Dioxide 25 mmol/L (21-33) 11/11/18 07:20 Anion Gap 14 (10-20) 11/11/18 07:20 BUN 18 mg/dL (7-21) 11/11/18 07:20 Creatinine 0.7 mg/dl (0.7-1.2) 11/11/18 07:20 Est GFR ( Amer) > 60 11/11/18 07:20 Est GFR (Non-Af Amer) > 60 11/11/18 07:20 Random Glucose 83 mg/dL (70-110) 11/11/18 07:20 Calcium 9.6 mg/dL (8.4-10.5) 11/11/18 07:20 Total Bilirubin 0.2 mg/dL (0.2-1.3) 11/11/18 07:20 AST 98 U/L (14-36) H 11/11/18 07:20 ALT 211 U/L (7-56) H 11/11/18 07:20 Alkaline Phosphatase 108 U/L (38-126) 11/11/18 07:20 Total Protein 7.6 g/dL (5.8-8.3) 11/11/18 07:20 Albumin 4.4 g/dL (3.0-4.8) 11/11/18 07:20 Globulin 3.2 gm/dL 11/11/18 07:20 Albumin/Globulin Ratio 1.4 (1.1-1.8) 11/11/18 07:20 Attending/Attestation - Attestation I have personally seen and examined this patient.: Yes I have fully participated in the care of the patient.: Yes I have reviewed all pertinent clinical information, including history, physical exam and plan: Yes Notes (Text): 11/11/18 15:27 Medical record note made by the resident after discussion with my direction and input after the patient was personally seen and examined by me. I have reviewed the chart and agree that the record accurately reflects by personal performance of the history, physical exam, data review, and medical decision-making, in the course for the patient. I have also personally directed the plan of care. 48 year old female with past medical history of CVA with residual left sided weakness, epilepsy, and fibromyalgia was initially admitted to [facility] [place] with H/O seizure episode. CT scan of head read shows possible tiny calcificationin left basal ganglia vs. artifact, MRI Brain: Showed no acute abnormalities.Patient topamax dose was increased but Patient developed transaiminitis ,the elevated liver enzymes had hepatocellular pattern . She was also on topamax and cymbalta which were discontinued due to elevated LFTs. Abdominal ultrasound showed hepatic steatosis. Hepatitis panel was negative. She underwent liver biopsy earlier last week .Liver biopsy showed steatohepatitis, grade 2, stage 0, mild inflammation, no fibrosis She was later transfered to TCU for rehabilitation. LFT are improving. Patient will be discharged home and will follow up with PMD and GI. She will need rpeat LFT on one week. She has also been advised not to take Tylenol. Management plan was discussed in detail with patient. Education was provided.
== END 2018-11-11 11:11 | disposition home or self-care (01) | DRG 101 ==
LOC: TRCU 17:51
PROVIDERS: ADMIT Internal Medicine; ATTEND Internal Medicine
PROC: F07Z9FZ Gait Training/Functional Ambulation Treatment using Assistive, Adaptive, Supportive or Protective Equipment (ICD-10-PCS; principal; 2018-11-03)
PROC: F08Z4FZ Home Management Treatment using Assistive, Adaptive, Supportive or Protective Equipment (ICD-10-PCS; 2018-11-03)
DX: G40.909 Epilepsy, unspecified, not intractable, without status epilepticus (principal); I69.354 Hemiplegia and hemiparesis following cerebral infarction affecting left non-dominant side; G62.9 Polyneuropathy, unspecified; M79.7 Fibromyalgia; G89.29 Other chronic pain; R07.89 Other chest pain; K59.00 Constipation, unspecified; K64.4 Residual hemorrhoidal skin tags; K75.81 Nonalcoholic steatohepatitis (NASH); E66.9 Obesity, unspecified; Z98.84 Bariatric surgery status